=== PATIENT | male | born 2000 | race Hispanic/Latino ===

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

== ENCOUNTER 2021-02-20 14:57 | Emergency (ER) | payer SELFPAY ==
--- OUTSIDE RECORDS SUMMARY | 2021-02-20 15:00 | XMS REPORT | Continuity of Care Document ---
:2000 Author Organization [facility] t Address [address] [place] [address] Care Team Providers Name Role Phone Phil [...] ID 2020-08-29 2020-08-29 Office FATUMA Villarreal [id number] 14:32:29 16:45:19 Visit [facility] [id number] CARE [id number] CENTER AT [phone] CORE[facility] [address] [place] [id number] Results This patient has no known results.
[2021-02-20] MEDS ORDERED: FAMOTIDINE 20 MG/2 ML VIAL IV ONE (15:51)
[2021-02-20] MEDS ORDERED: NA CHLORIDE 0.9% 1,000 ML ONE (15:51)
[2021-02-20] MEDS ORDERED: ONDANSETRON 4 MG/2 ML VIAL ONE (15:51)
[2021-02-20 15:53] LABS: Urine Blood Negative (Negative); Urine Glucose Negative (Negative); Urine Protein Negative (Negative); Urine Specific Gravity 1.025 (1.005-1.030)
[2021-02-20 16:03] LABS: Absolute Lymphocytes (CBC) 2.2 K/uL (0.7-4.9); Basophils % 0.3 % (0-1.3); Hematocrit 43.7 % (39.6-49.0); MPV 10.1 fL (7.6-11.3); RBC Red Blood Cell Count 5.33 M/uL (4.33-5.43)
[2021-02-20 16:25] LABS: ALT/SGPT 46 U/L (12-78); AST/SGOT 16 U/L (15-37); Albumin 3.8 g/dL (3.4-5.0); Alkaline Phosphatase 67 U/L (45-117); BUN Blood Urea Nitrogen 13 mg/dL (7-18); Bicarbonate 24 mmol/L (21-32); Bilirubin Direct 0.1 mg/dL (0-0.2); Bilirubin Total 0.5 mg/dL (0.2-1.0); Glucose Level 78 mg/dL (74-106); Lipase 76 U/L (73-393); Potassium 3.9 mmol/L (3.5-5.1); Protein, Total 8.3 g/dL (6.4-8.2); Sodium Level 141 mmol/L (136-145)
--- NOTE | 2021-02-20 16:48 | ER ---
Nurse's Notes [facility] Name: Rocío Little Age: 21 yrs Sex: Male : 2000 Arrival Date: 02/20/2021 Time: 15:01 Bed 19 Private MD: Diagnosis: Vomiting;Dizziness and giddiness;Palpitations Presentation: 02/20 15:05 Chief complaint: Patient states: "i have been vomiting and feeling bad for about a week jd3 now. I am getting dizzy now with my heart feeling like it is skipping beats and feels funny. I think this all started when i was exposed to Benzine at work so I am not sure if it is related or not to that.". Coronavirus screen: cough unrelated to allergies, nausea, Client presents with at least one sign or symptom that may indicate coronavirus-19. Standard/surgical mask placed on the client. Provider contacted for isolation considerations. Ebola Screen: Patient negative for fever greater than or equal to 101.5 degrees Fahrenheit, and additional compatible Ebola Virus Disease symptoms. Initial Sepsis Screen: Does the patient meet any 2 criteria? No. Patient's initial sepsis screen is negative. Does the patient have a suspected source of infection? No. Patient's initial sepsis screen is negative. Risk Assessment: Do you want to hurt yourself or someone else? Patient reports no desire to harm self or others. Onset of symptoms was February 13, 2021. 15:05 Method Of Arrival: Ambulatory jd3 15:05 Acuity: LIZBETH 3 jd3 Historical: - Allergies: 15:07 NKDA; jd3 - Home Meds: 15:07 None [Active]; jd3 - PMHx: 15:07 Asthma; jd3 - PSHx: 15:07 Hernia repair; jd3 - Immunization history:: Adult Immunizations up to date. - Social history:: Smoking status: Patient denies any tobacco usage or history of. Screenin:24 Abuse screen: Denies threats or abuse. Nutritional screening: No deficits noted. vg1 Tuberculosis screening: No symptoms or risk factors identified. Fall Risk No fall in past 12 months (0 pts). No secondary diagnosis (0 pts). IV access (20 points). Ambulatory Aid- None/Bed Rest/Nurse Assist (0 pts). Gait- Normal/Bed Rest/Wheelchair (0 pts) Mental Status- Oriented to own ability (0 pts). Total Joyce Fall Scale indicates No Risk (0-24 pts). Assessment: 15:21 General: Appears in no apparent distress. uncomfortable, Behavior is calm, cooperative. vg1 Pain: Complains of pain in epigastric area and left upper quadrant Pain currently is 7 out of 10 on a pain scale. Pain began about a week ago Also complains of nausea. Neuro: Level of Consciousness is awake, alert, obeys commands, Oriented to person, place, time, situation. Cardiovascular: Patient's skin is warm and dry. Respiratory: Airway is patent Respiratory effort is even, unlabored. GI: Abdomen is round non-distended, Last BM was February 16, 2021. Bowel sounds present X 4 quads. Abdomen is tender to palpation in epigastric area and left upper quadrant Reports nausea, vomiting, for about a week. : No signs and/or symptoms were reported regarding the genitourinary system. EENT: No signs and/or symptoms were reported regarding the EENT system. Derm: Skin is intact, is healthy with good turgor. Musculoskeletal: Circulation, motion, and sensation intact. 16:34 Reassessment: Patient appears in no apparent distress at this time. Patient and/or vg1 family updated on plan of care and expected duration. Pain level reassessed. Patient is alert, oriented x 3, equal unlabored respirations, skin warm/dry/pink. Patient states feeling better. Vital Signs: 15:08 BP 157 / 87; Pulse 92; Resp 17 S; Temp 97.7(TE); Pulse Ox 99% on R/A; Weight 100.24 kg jd3 (R); Height 5 ft. 10 in. (177.80 cm) (R); Pain 7/10; 15:23 BP 134 / 81; Pulse 95; Resp 18; Pulse Ox 100% on R/A; vg1 16:35 BP 117 / 66; Pulse 68; Resp 14; Pulse Ox 100% on R/A; vg1 15:08 Body Mass Index 31.71 (100.24 kg, 177.80 cm) j ED Course: 15:01 Patient arrived in ED. am2 15:07 Triage completed. jd3 15:08 Arm band placed on. j 15:10 Sidney Henry MD is Attending Physician. [facility] 15:15 Dayan Murphy, RN is Primary Nurse. vg1 15:24 Patient has correct armband on for positive identification. Bed in low position. Call vg1 light in reach. Side rails up X 1. 15:36 EKG done, by ED staff, reviewed by Dayan Murphy RN. vg1 15:42 Initial lab(s) drawn, by fl, sent to lab. Inserted saline lock: 20 gauge in right vg1 antecubital area, using aseptic technique. Blood collected. 16:54 No provider procedures requiring assistance completed. IV discontinued, intact, vg1 bleeding controlled, No redness/swelling at site. Pressure dressing applied. Administered Medications: 15:47 Drug: NS 0.9% 1000 ml Route: IV; Rate: 1 bolus; Site: right antecubital; vg1 16:34 Follow up: IV Status: Completed infusion; IV Intake: 1000ml vg1 15:48 Drug: Zofran (Ondansetron) 4 mg Route: IVP; Site: right antecubital; vg1 16:35 Follow up: Response: No adverse reaction; Nausea is decreased vg1 15:48 Drug: Pepcid (famotidine) 20 mg Route: IVP; Site: right antecubital; vg1 16:35 Follow up: Response: No adverse reaction; Pain is decreased; Nausea is decreased vg1 Intake: 16:34 IV: 1000ml; Total: 1000ml. vg1 Outcome: 16:47 Discharge ordered by . [facility] 16:54 Discharged to home ambulatory. vg1 16:54 Condition: stable 16:54 Discharge instructions given to patient, Instructed on discharge instructions, follow up and referral plans. medication usage, Demonstrated understanding of instructions, follow-up care, medications, Prescriptions given X 1. 16:56 Patient left the ED. vg1 Signatures: Sidney Henry MD MD cha Moreno, Amanda am2 Avni Arguello RN RN jDayan Richmond, RN RN vg1 Corrections: (The following items were deleted from the chart) 15:25 15:21 GI: Abdomen is round non-distended, Last BM was February 16, 2021. Bowel sounds vg1 present X 4 quads. Abdomen is tender to palpation in epigastric area and left upper quadrant vg1
--- NOTE | 2021-02-20 16:48 | EDPHYS ---
Physician Documentation [facility] Name: Rocío Little Age: 21 yrs Sex: Male : 2000 Arrival Date: 02/20/2021 Time: 15:01 Bed 19 Private MD: ED Physician Sidney Henry HPI: 02/20 15:35 This 21 yrs old Male presents to ER via Ambulatory with complaints of long Vomiting, Dizziness, irregular heartbeat. 15:35 The patient presents to the emergency department with nausea, vomiting, that is long continuous. Onset: The symptoms/episode began/occurred yesterday. Possible causes: unknown. The symptoms are aggravated by nothing. The symptoms are alleviated by nothing. Associated signs and symptoms: Pertinent positives: abdominal pain, nausea, vomiting. Severity of symptoms: At their worst the symptoms were mild in the emergency department the symptoms are unchanged. The patient has not experienced similar symptoms in the past. Historical: - Allergies: 15:07 NKDA; jd3 - Home Meds: 15:07 None [Active]; jd3 - PMHx: 15:07 Asthma; jd3 - PSHx: 15:07 Hernia repair; jd3 - Immunization history:: Adult Immunizations up to date. - Social history:: Smoking status: Patient denies any tobacco usage or history of. ROS: 15:36 Constitutional: Negative for fever, chills, and weight loss, Eyes: Negative for injury, long pain, redness, and discharge, ENT: Negative for injury, pain, and discharge, Neck: Negative for injury, pain, and swelling, Cardiovascular: Negative for chest pain, palpitations, and edema, Respiratory: Negative for shortness of breath, cough, wheezing, and pleuritic chest pain, Back: Negative for injury and pain, : Negative for injury, bleeding, discharge, and swelling, MS/Extremity: Negative for injury and deformity, Skin: Negative for injury, rash, and discoloration, Neuro: Negative for headache, weakness, numbness, tingling, and seizure, Psych: Negative for depression, anxiety, suicide ideation, homicidal ideation, and hallucinations, Allergy/Immunology: Negative for hives, rash, and allergies, Endocrine: Negative for neck swelling, polydipsia, polyuria, polyphagia, and marked weight changes, Hematologic/Lymphatic: Negative for swollen nodes, abnormal bleeding, and unusual bruising. 15:36 Abdomen/GI: Positive for abdominal pain, nausea and vomiting. Exam: 15:36 Constitutional: This is a well developed, well nourished patient who is awake, alert, long and in no acute distress. Head/Face: Normocephalic, atraumatic. Eyes: Pupils equal round and reactive to light, extra-ocular motions intact. Lids and lashes normal. Conjunctiva and sclera are non-icteric and not injected. Cornea within normal limits. Periorbital areas with no swelling, redness, or edema. ENT: Nares patent. No nasal discharge, no septal abnormalities noted. Tympanic membranes are normal and external auditory canals are clear. Oropharynx with no redness, swelling, or masses, exudates, or evidence of obstruction, uvula midline. Mucous membranes moist. Neck: Trachea midline, no thyromegaly or masses palpated, and no cervical lymphadenopathy. Supple, full range of motion without nuchal rigidity, or vertebral point tenderness. No Meningismus. Chest/axilla: Normal chest wall appearance and motion. Nontender with no deformity. No lesions are appreciated. Cardiovascular: Regular rate and rhythm with a normal S1 and S2. No gallops, murmurs, or rubs. Normal PMI, no JVD. No pulse deficits. Respiratory: Lungs have equal breath sounds bilaterally, clear to auscultation and percussion. No rales, rhonchi or wheezes noted. No increased work of breathing, no retractions or nasal flaring. Abdomen/GI: Soft, non-tender, with normal bowel sounds. No distension or tympany. No guarding or rebound. No evidence of tenderness throughout. Back: No spinal tenderness. No costovertebral tenderness. Full range of motion. Male : Normal genitalia with no discharge or lesions. Skin: Warm, dry with normal turgor. Normal color with no rashes, no lesions, and no evidence of cellulitis. MS/ Extremity: Pulses equal, no cyanosis. Neurovascular intact. Full, normal range of motion. Neuro: Awake and alert, GCS 15, oriented to person, place, time, and situation. Cranial nerves II-XII grossly intact. Motor strength 5/5 in all extremities. Sensory grossly intact. Cerebellar exam normal. Normal gait. Psych: Awake, alert, with orientation to person, place and time. Behavior, mood, and affect are within normal limits. 15:50 ECG was reviewed by the Attending Physician. long Vital Signs: 15:08 BP 157 / 87; Pulse 92; Resp 17 S; Temp 97.7(TE); Pulse Ox 99% on R/A; Weight 100.24 kg jd3 (R); Height 5 ft. 10 in. (177.80 cm) (R); Pain 7/10; 15:23 BP 134 / 81; Pulse 95; Resp 18; Pulse Ox 100% on R/A; vg1 16:35 BP 117 / 66; Pulse 68; Resp 14; Pulse Ox 100% on R/A; vg1 15:08 Body Mass Index 31.71 (100.24 kg, 177.80 cm) jd3 MDM: 15:10 Patient medically screened. [facility] 16:46 Differential diagnosis: arrythmia, Nonspecific abd pain, gastritis, cholecystitis, long pancreatitis, diverticulitis, viral gastroenteritis, gastroenteritis. Data reviewed: vital signs, nurses notes, lab test result(s), EKG. Data interpreted: hand baseball sewer: rate is 68 beats/min, rhythm is regular, Pulse oximetry: on room air is 100 %. Test interpretation: by ED physician or midlevel provider: ECG. Counseling: I had a detailed discussion with the patient and/or guardian regarding: the historical points, exam findings, and any diagnostic results supporting the discharge/admit diagnosis, lab results, radiology results, the need for outpatient follow up, for definitive care, a family practitioner. 02/20 15:26 Order name: Basic Metabolic Panel; Complete Time: 16:45 [facility] 02/20 15:26 Order name: CBC with Diff; Complete Time: 16:45 [facility] 02/20 15:26 Order name: Hepatic Function; Complete Time: 16:45 [facility] 02/20 15:26 Order name: Lipase; Complete Time: 16:45 [facility] 02/20 15:53 Order name: Urine Dipstick-Ancillary; Complete Time: 16:45 [facility] 02/20 15:26 Order name: IV Saline Lock; Complete Time: 15:47 [facility] 02/20 15:26 Order name: Labs collected and sent; Complete Time: 15:47 [facility] 02/20 15:26 Order name: Urine Dipstick-Ancillary (obtain specimen); Complete Time: 15:53 [facility] 02/20 15:26 Order name: EKG; Complete Time: 15:26 [facility] 02/20 15:26 Order name: EKG - Nurse/Tech; Complete Time: 15:47 [facility] EC:50 Rate is 71 beats/min. Rhythm is regular. QRS [place] is Normal. NV interval is normal. QRS long interval is normal. QT interval is normal. No Q waves. T waves are Normal. No ST changes noted. Clinical impression: NSR w/ Non-specific ST/T Changes and No evidence of ischemia. Interpreted by me. Reviewed by me. Administered Medications: 15:47 Drug: NS 0.9% 1000 ml Route: IV; Rate: 1 bolus; Site: right antecubital; vg1 16:34 Follow up: IV Status: Completed infusion; IV Intake: 1000ml vg1 15:48 Drug: Zofran (Ondansetron) 4 mg Route: IVP; Site: right antecubital; vg1 16:35 Follow up: Response: No adverse reaction; Nausea is decreased vg1 15:48 Drug: Pepcid (famotidine) 20 mg Route: IVP; Site: right antecubital; vg1 16:35 Follow up: Response: No adverse reaction; Pain is decreased; Nausea is decreased vg1 Disposition: 02/20/21 16:47 Discharged to Home. Impression: Vomiting, Dizziness and giddiness, Palpitations. - Condition is Stable. - Discharge Instructions: Nausea and Vomiting, Adult, Palpitations, Nausea and Vomiting, Adult, Mxsf-rv-Bsnh, Palpitations, Cppg-wy-Bhxm, Dizziness, Qorp-ec-Ttur. - Prescriptions for Zofran 4 mg Oral Tablet - take 1 tablet by ORAL route every 12 hours As needed; 20 tablet. - Medication Reconciliation Form, Thank You Letter, Antibiotic Education, Prescription Opioid Use, Work release form form. - Follow up: Private Physician; When: 2 - 3 days; Reason: Recheck today's complaints, Continuance of care, Re-evaluation by your physician. - Problem is new. - Symptoms have improved. Signatures: Dispatcher [employer] Sidney De La Garza MD MD cha Davies, Jonathon, RN RN jd3 Dayan Murphy, RN RN vg1 Corrections: (The following items were deleted from the chart) 16:56 16:47 02/20/2021 16:47 Discharged to Home. Impression: Vomiting; Dizziness and vg1 giddiness; Palpitations. Condition is Stable. Discharge Instructions: Nausea and Vomiting, Adult, Palpitations, Nausea and Vomiting, Adult, Qhhw-cf-Gnfi, Palpitations, Kqxk-vd-Biis, Dizziness, Lqoc-td-Lhfo. Prescriptions for Zofran 4 mg Oral Tablet - take 1 tablet by ORAL route every 12 hours As needed; 20 tablet. and Forms are Medication Reconciliation Form, Thank You Letter, Antibiotic Education, Prescription Opioid Use. Follow up: Private Physician; When: 2 - 3 days; Reason: Recheck today's complaints, Continuance of care, Re-evaluation by your physician. Problem is new. Symptoms have improved. long
[2021-02-20 17:27] VITALS: TEMP 97.7
[2021-02-20 17:29] VITALS: O2SAT 100
[2021-02-20 17:30] VITALS: BP 117/66
--- NOTE | 2021-02-21 07:39 | EKG ---
Test Date: 2021-02-20 Test Time: 15:36:26 [employer]: CLAUDINE MEASUREMENT RESULTS: Intervals: Rate: 71 LA: 174 QRSD: 96 QT: 354 QTc: 384 [place]: P: 58 LA: 174 QRS: 88 T: 65 INTERPRETIVE STATEMENTS: Normal sinus rhythm with sinus arrhythmia Normal ECG No previous ECG available for comparison Electronically Signed On 02-21-21 07:35:55 CDT by Jp Jacques
== END 2021-02-20 16:56 | disposition home or self-care (01) ==
LOC: ER 14:57
DX: R11.2 Nausea with vomiting, unspecified (principal); R42 Dizziness and giddiness; R00.2 Palpitations
CPT/HCPCS: 36415; 80048; 80076; 81003; 83690; 85025; 93005; J2405; J7030

== ENCOUNTER 2021-05-02 23:46 | Emergency (ER) | payer SELFPAY ==
--- OUTSIDE RECORDS SUMMARY | 2021-05-02 23:48 | XMS REPORT | Continuity of Care Document ---
:2000 Author Organization [facility] t Address [address] [place] [address] Care Team Providers Name Role Phone Phil [...] ID 2020-08-29 2020-08-29 Office FATUMA Villarreal [id number] 14:32:29 16:45:19 Visit [facility] [id number] CARE [id number] CENTER AT [phone] [facility] [address] [place] [address] Results This patient has no known results.
--- NOTE | 2021-05-03 00:49 | ER ---
Nurse's Notes [facility] Name: Rocío Little Age: 21 yrs Sex: Male : 2000 Arrival Date: 05/02/2021 Time: 23:51 Bed Waiting Private MD: Diagnosis: ED Course: 05/02 23:51 Patient arrived in ED. bp1 05/03 00:49 Patient's name was called from ER lobby. No response. Unable to locate patient. Will bb disposition as left without being seen by a provider. Administered Medications: No medications were administered Outcome: 00:49 Patient left the ED. bb Signatures: Sylvie Rain RN RN bb Hannah Casiano bp1
== END 2021-05-03 00:49 | disposition left against medical advice (07) ==
LOC: ER 23:46
DX: Z02.9 Encounter for administrative examinations, unspecified (principal)

== ENCOUNTER 2021-06-11 02:17 | Emergency (ER) | payer SELFPAY ==
[2021-06-11] MEDS ORDERED: KETOROLAC 30 MG/ML INJ ONE (03:10)
--- NOTE | 2021-06-11 03:41 | ER ---
Nurse's Notes [facility] Name: Rocío Little Age: 21 yrs Sex: Male : 2000 Arrival Date: 06/11/2021 Time: 02:22 Bed 18 Private MD: Diagnosis: Pain in right hip-Strain Presentation: 06/11 02:35 Chief complaint: Patient states: left hip pain x 4 weeks, reports worsening tonight lp1 while at work; Denies any trauma to site. Coronavirus screen: At this time, the client does not indicate any symptoms associated with coronavirus-19. Ebola Screen: No symptoms or risks identified at this time. Initial Sepsis Screen: Does the patient meet any 2 criteria? No. Patient's initial sepsis screen is negative. Does the patient have a suspected source of infection? No. Patient's initial sepsis screen is negative. Risk Assessment: Do you want to hurt yourself or someone else? Patient reports no desire to harm self or others. Onset of symptoms was June 11, 2021. 02:35 Method Of Arrival: Wheelchair lp1 02:35 Acuity: LIZBETH 4 lp1 03:56 Note PT UP FOR DISCHARGE AT THIS TIME. PT AWAKE ALERT AOX4 SPEAKING IN FULL SENTENCES. cw2 DISCHARGE INSTRUCTIONS AND PRESCRIPTIONS X2 DISCUSSED WITH PT. ALL QUESTIONS ANSWERED AND NO CONCERNS VERBALIZED AT THIS TIME. PT AMBULATORY ALONE WITH A STEADY GAIT. PT ADVISED TO RETURN TO ED AT ANYTIME. PT ACKNOWLEDGES. PT STABLE ON DISCHARGE. Triage Assessment: 03:13 General: Appears distressed, uncomfortable, Behavior is calm, cooperative. cw2 03:13 Neuro: No deficits noted. Cardiovascular: No deficits noted. Respiratory: No deficits cw2 noted. GI: No deficits noted. Historical: - Allergies: 02:37 NKDA; lp1 - Home Meds: 02:37 None [Active]; lp1 - PMHx: 02:37 Asthma; lp1 - PSHx: 02:37 None; lp1 - Immunization history:: Adult Immunizations up to date. - Social history:: Smoking status: Reported history of juuling and/or vaping. Screenin:38 Abuse screen: Denies threats or abuse. Denies injuries from another. Nutritional lp1 screening: No deficits noted. Tuberculosis screening: No symptoms or risk factors identified. Fall Risk None identified. Assessment: 03:14 Reassessment: Patient appears in no apparent distress at this time. No changes from cw2 previously documented assessment. General: Appears uncomfortable, Behavior is calm, cooperative. Pain:. Vital Signs: 02:35 BP 145 / 88; Pulse 98; Resp 18; Temp 98.6(TE); Pulse Ox 98% on R/A; Weight 102.06 kg lp1 (R); Height 5 ft. 10 in. (177.80 cm); Pain 9/10; 03:13 BP 132 / 84; Pulse 94; Resp 15; Pulse Ox 99% on R/A; cw2 03:58 BP 129 / 79; Pulse 81; Resp 15; Temp 98.5; Pulse Ox 99% on R/A; Pain 4/10; cw2 02:35 Body Mass Index 32.28 (102.06 kg, 177.80 cm) lp1 ED Course: 02:22 Patient arrived in ED. ja2 02:28 Juan David León MD is Attending Physician. 7 02:37 Triage completed. lp1 02:37 Arm band placed on. lp1 02:38 Patient has correct armband on for positive identification. lp1 02:43 Diego Dennison, RN is Primary Nurse. cw2 03:03 Hip Left 2 View XRAY In Process Unspecified. EDMS 03:15 Door closed. Noise minimized. Moved to private room. cw2 03:15 No provider procedures requiring assistance completed. cw2 03:15 X-ray(s) taken. cw2 03:39 Simeon Brannon MD is Referral Physician. 7 Administered Medications: 02:49 Drug: Ketorolac 60 mg Route: IM; Site: right deltoid; cw2 03:58 Follow up: BP 129 / 79; Pulse 81 bpm; Resp 15 bpm; Temp 98.5; Pulse Ox 99% RA; Pain cw2 4/10 Adult; Response: No adverse reaction Outcome: 03:41 Discharge ordered by . 7 03:59 Patient left the ED. cw2 Signatures: Dispatcher [employer] EDMS Juanita Rey, RN RN lp1 Juan David León MD MD 7 Mylene Alcazar 2 Diego Dennison, CRISSY RN cw2
--- NOTE | 2021-06-11 03:41 | EDPHYS ---
Physician Documentation [facility] Name: Rocío Little Age: 21 yrs Sex: Male : 2000 Arrival Date: 06/11/2021 Time: 02:22 Bed 18 Private MD: ED Physician Juan David León HPI: 06/11 02:44 This 21 yrs old Male presents to ER via Wheelchair with complaints of Hip mh7 Pain, Other. 02:44 The patient or guardian reports pain. that occurred at an unknown site, sustained from mh7 unknown reason, There is no obvious deformity, The patient is able to self ambulate. The patient is able to bear their full body weight. There is no radiation of the patient's discomfort. The complaints affect the Left hip. Onset: The symptoms/episode began/occurred 4 week(s) ago. Modifying factors: The symptoms are alleviated by nothing, the symptoms are aggravated by flexion. Associated signs and symptoms: Loss of consciousness: the patient experienced no loss of consciousness, Pertinent negatives: abdominal pain, altered mental status, anorexia, chest pain, diarrhea, dizziness, dysuria, fever, headache, incontinence, nausea, shortness of breath, vomiting, weakness. Severity of symptoms: At their worst the symptoms were moderate, 7 day(s) ago, in the emergency department the symptoms are unchanged. Historical: - Allergies: 02:37 NKDA; lp1 - Home Meds: 02:37 None [Active]; lp1 - PMHx: 02:37 Asthma; lp1 - PSHx: 02:37 None; lp1 - Immunization history:: Adult Immunizations up to date. - Social history:: Smoking status: Reported history of juuling and/or vaping. ROS: 02:44 Constitutional: Negative for fever, chills, and weight loss, Eyes: Negative for injury, mh7 pain, redness, and discharge, ENT: Negative for injury, pain, and discharge, Neck: Negative for injury, pain, and swelling, Cardiovascular: Negative for chest pain, palpitations, and edema, Respiratory: Negative for shortness of breath, cough, wheezing, and pleuritic chest pain, Abdomen/GI: Negative for abdominal pain, nausea, vomiting, diarrhea, and constipation, Back: Negative for injury and pain, : Negative for injury, bleeding, discharge, and swelling, Skin: Negative for injury, rash, and discoloration, Neuro: Negative for headache, weakness, numbness, tingling, and seizure, Psych: Negative for depression, anxiety, suicide ideation, homicidal ideation, and hallucinations, Allergy/Immunology: Negative for hives, rash, and allergies, Endocrine: Negative for neck swelling, polydipsia, polyuria, polyphagia, and marked weight changes, Hematologic/Lymphatic: Negative for swollen nodes, abnormal bleeding, and unusual bruising. Exam: 02:44 Constitutional: This is a well developed, well nourished patient who is awake, alert, mh7 and in no acute distress. Head/Face: Normocephalic, atraumatic. Eyes: Pupils equal round and reactive to light, extra-ocular motions intact. Lids and lashes normal. Conjunctiva and sclera are non-icteric and not injected. Cornea within normal limits. Periorbital areas with no swelling, redness, or edema. Neck: Trachea midline, no thyromegaly or masses palpated, and no cervical lymphadenopathy. Supple, full range of motion without nuchal rigidity, or vertebral point tenderness. No Meningismus. Chest/axilla: Normal chest wall appearance and motion. Nontender with no deformity. No lesions are appreciated. Cardiovascular: Regular rate and rhythm with a normal S1 and S2. No gallops, murmurs, or rubs. Normal PMI, no JVD. No pulse deficits. Respiratory: Lungs have equal breath sounds bilaterally, clear to auscultation and percussion. No rales, rhonchi or wheezes noted. No increased work of breathing, no retractions or nasal flaring. Abdomen/GI: Soft, non-tender, with normal bowel sounds. No distension or tympany. No guarding or rebound. No evidence of tenderness throughout. Back: No spinal tenderness. No costovertebral tenderness. Full range of motion. Skin: Warm, dry with normal turgor. Normal color with no rashes, no lesions, and no evidence of cellulitis. Neuro: Awake and alert, GCS 15, oriented to person, place, time, and situation. Cranial nerves II-XII grossly intact. Motor strength 5/5 in all extremities. Sensory grossly intact. Cerebellar exam normal. Normal gait. Psych: Awake, alert, with orientation to person, place and time. Behavior, mood, and affect are within normal limits. 02:44 Musculoskeletal/extremity: Extremities: noted in the Left hip: tenderness, ROM: limited mh7 active range of motion due to pain, in the Left hip, limited passive range of motion due to pain, in the Left hip, Circulation is intact in all extremities. Sensation intact. Compartment Syndrome exam of affected extremity: is normal. no numbness, no tingling, no sensation deficit, no palor, no weak pulses, Joints: the left hip displays painful range of motion, tenderness, Weight bearing: able to fully bear weight, without difficulty, Tendon exam: specific tendon testing normal through active and passive range of motion Calves: are non-tender, have equal circumference. Vital Signs: 02:35 BP 145 / 88; Pulse 98; Resp 18; Temp 98.6(TE); Pulse Ox 98% on R/A; Weight 102.06 kg lp1 (R); Height 5 ft. 10 in. (177.80 cm); Pain 9/10; 03:13 BP 132 / 84; Pulse 94; Resp 15; Pulse Ox 99% on R/A; cw2 03:58 BP 129 / 79; Pulse 81; Resp 15; Temp 98.5; Pulse Ox 99% on R/A; Pain 4/10; cw2 02:35 Body Mass Index 32.28 (102.06 kg, 177.80 cm) lp1 MDM: 03:38 Differential diagnosis: hip fracture, femoral neck fracture, femoral shaft fracture, mh7 bursitis, arthritis, strain. Data reviewed: vital signs, nurses notes, radiologic studies, plain films. Data interpreted: Pulse oximetry: on room air is 99 %. Interpretation: normal. Counseling: I had a detailed discussion with the patient and/or guardian regarding: the historical points, exam findings, and any diagnostic results supporting the discharge/admit diagnosis, radiology results, the need for outpatient follow up, a orthopedic surgeon, to return to the emergency department if symptoms worsen or persist or if there are any questions or concerns that arise at home. Response to treatment: the patient's symptoms have markedly improved after treatment. 03:41 Patient medically screened. [facility] 06/11 02:42 Order name: Hip Left 2 View XRAY [facility] Administered Medications: 02:49 Drug: Ketorolac 60 mg Route: IM; Site: right deltoid; cw2 03:58 Follow up: BP 129 / 79; Pulse 81 bpm; Resp 15 bpm; Temp 98.5; Pulse Ox 99% RA; Pain cw2 12/16 Adult; Response: No adverse reaction Disposition Summary: 06/11/21 03:41 Discharge Ordered Location: Home [facility] Problem: an ongoing problem [facility] Symptoms: have improved [facility] Condition: Stable [facility] Diagnosis - Pain in right hip - Strain [facility] Followup: [facility] - With: Private Physician - When: 1 - 2 days - Reason: Worsening of condition, Recheck today's complaints, Continuance of care, Re-evaluation by your physician Followup: [facility] - With: Simeon Brannon MD - When: 2 - 3 days - Reason: Worsening of condition, Recheck today's complaints Discharge Instructions: - Discharge Summary Sheet [facility] - Musculoskeletal Pain [facility] - Hip Pain [facility] Forms: - Medication Reconciliation Form [facility] - Thank You Letter [facility] - Antibiotic Education [facility] - Prescription Opioid Use [facility] Prescriptions: - Ibuprofen 800 mg Oral Tablet - take 1 tablet by ORAL route every 8 hours As needed take with food; 15 tablet; 7 Refills: 0, Product Selection Permitted - methocarbamol 500 mg Oral Tablet - take 1 tablet by ORAL route 4 times per day; 20 tablet; Refills: 0, Product [facility] Selection Permitted Signatures: Dispatcher [employer] Juanita Renner, RN RN lp1 Juan David León MD MD 7 Diego Dennison RN RN cw2
[2021-06-11 04:08] VITALS: O2SAT 99
[2021-06-11 04:09] VITALS: BP 129/79; TEMP 98.5
--- NOTE | 2021-06-11 07:41 | RAD REPORT ---
EXAM DESCRIPTION: RAD - Hip Left 2 View - 06/11/2021 3:03 am CLINICAL HISTORY: Left hip pain FINDINGS: No fracture or dislocation is seen. No bone or joint abnormality noted
== END 2021-06-11 03:59 | disposition home or self-care (01) ==
LOC: ER 02:17
DX: S76.012A Strain of muscle, fascia and tendon of left hip, initial encounter (principal)
CPT/HCPCS: 96372; 99283

== ENCOUNTER 2021-11-14 04:16 | Emergency (ER) | payer SELFPAY ==
--- OUTSIDE RECORDS SUMMARY | 2021-11-14 04:21 | XMS REPORT | Continuity of Care Document ---
:2001 Author Organization [facility] t Address [address] [place] [address] Care Team Providers Name Role Phone Cy TERAN Attending Clinician CY Attending Clinician Unavailable Doctor Unassigned, Name Attending Clinician Unavailable Bernardo Baxter MD Attending Clinician Payers Payer Name Policy Type Policy Number Effective Date Expiration Date S ourkerry Advance Directives Directive Decision Effective Termination Comments Source Date Date Healthcare Agents on N/A [facility] ersity FileNameRelationshipHealthcare [facility] Agent Medical RelationshipCommunicationValleyford Branch GarciaMotherHealth Care [phone] (Mobile) [email or web address] JeffreyGrandparentFirst [facility] [phone] (Mobile) Problems Condition Condition Condition Status Onset Resolution Last Treating Co mments Source Name Details Category Date Date Treatment Clinician Date BMI BMI Disease Active Univers 31.0-31.9, 31.0-31.9, 04-09 it y of adult adult 00:00: [address] 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, left s, left 04-09 ity of 00:00: [address] Allergies, Adverse Reactions, Alerts Allergy Allergy Status Severity Reaction(s) Onset Inactive Treating Comm ents Source Name Type Date Date Clinician NO KNOWN Drug Active Univers ALLERGIE Class ity of [facility] Social History Social Habit Start Date Stop Date Quantity Comments Source Exposure to Not sure [facility]-CoV-2 [place] [facility] (event) Branch History of Cigarette Smoker Universi ty of tobacco use [facility] Sex Assigned At Universit y of [facility] Tobacco use and 2019-04-09 2019-04-09 Former user Universi ty of exposure 00:00:00 00:00:00 [facility] Alcohol intake 2019-04-09 2019-04-09 Current University of 00:00:00 00:00:00 non-drinker of [facility] alcohol (finding) Branch Tobacco Comment 2019-04-09 2019-04-09 E cigarette - Univer sity of 00:00:00 00:00:00 once per nine [place] [facility] days, non Branch nicotine, 04/07/2019 - no longer vapes. Smoking Status Start Date Stop Date Source Light tobacco smoker 2019-04-09 00:00:00 [facility] Medications Ordered Filled Start Stop Current Ordering Indication Dosage Frequency Signature Comments Components Source Medication Medication Date Date Medication? Clinician (SIG) Name Name ondansetron 2017-09 Yes 4mg Take 1 Univ ers (ZOFRAN 2-19 tablet by ity of ODT) 4 mg 00:00: mouth [place] disintegrat 00 every 8 Medic al ing tablet (eight) Branch hours as needed for Nausea and Vomiting (N/V). ondansetron 2017-09- No 4mg Take 1 Uni vers (ZOFRAN 2-19 -31 tablet by ity of ODT) 4 mg 00:00: 00:00 mouth [place] disintegr[facility] 00 :00 every 8 Medic al ing tablet (eight) Branch hours as needed for Nausea and Vomiting (N/V). ondansetron 2017-09- No 4mg Take 1 Uni vers (ZOFRAN 2-19 -31 tablet by ity of ODT) 4 mg 00:00: 00:00 mouth [place] disintegrat 00 :00 every 8 Medic al ing tablet (eight) Branch hours as needed for Nausea and Vomiting (N/V). No known No [facility] No [facility] medications [facility] No known No Univers medications [facility] No known No Univers medications [facility] Immunizations Ordered Immunization Filled Immunization Date Status Commen ts Source Name Name Meningococcal B, OMV 2019-04-07 Completed Univ ersity of 00:00:00 [facility] Meningococcal B, OMV 2019-04-07 Completed Univ ersity of 00:00:00 [facility] Meningococcal B, OMV 2019-04-07 Completed Univ ersity of 00:00:00 [facility] Meningococcal B, OMV 2019-04-07 Completed Univ ersity of 00:00:00 [facility] Meningococcal B, OMV 2019-04-07 Completed Univ ersity of 00:00:00 [facility] Meningococcal B, OMV 2019-04-07 Completed Univ ersity of 00:00:00 [facility] Meningococcal 2018-04-08 Completed University of Polysaccharide 00:00:00 [place] [facility] (groups A, C, Y and Branc h W-135) conjugate vaccine (MCV4P) Meningococcal 2018-04-08 Completed University of Polysaccharide 00:00:00 [place] [facility] (groups A, C, Y and Branc h W-135) conjugate vaccine (MCV4P) Meningococcal 2018-04-08 Completed University of Polysaccharide 00:00:00 [place] [facility] (groups A, C, Y and Branc h W-135) conjugate vaccine (MCV4P) Meningococcal 2018-04-08 Completed University of Polysaccharide 00:00:00 [place] [facility] (groups A, C, Y and Branc h W-135) conjugate vaccine (MCV4P) Meningococcal 2018-04-08 Completed University of Polysaccharide 00:00:00 [place] [facility] (groups A, C, Y and Branc h W-135) conjugate vaccine (MCV4P) Meningococcal 2018-04-08 Completed University of Polysaccharide 00:00:00 [place] [facility] (groups A, C, Y and Branc h W-135) conjugate vaccine (MCV4P) Meningococcal 2018-04-08 Completed University of Polysaccharide 00:00:00 [place] [facility] (groups A, C, Y and Branc h W-135) conjugate vaccine (MCV4P) Influenza Virus 2015-06-12 Completed Universit y of Vaccine 00:00:00 [facility] Influenza Virus 2015-06-12 Completed Universit y of Vaccine 00:00:00 [facility] Influenza Virus 2015-06-12 Completed Universit y of Vaccine 00:00:00 [facility] Influenza Virus 2015-06-12 Completed Universit y of Vaccine 00:00:00 [facility] Influenza Virus 2015-06-12 Completed Universit y of Vaccine 00:00:00 [facility] Influenza Virus 2015-06-12 Completed Universit y of Vaccine 00:00:00 [facility] Influenza Virus 2015-06-12 Completed Universit y of Vaccine 00:00:00 [facility] Influenza Virus 2013-07-28 Completed Universit y of Vaccine 00:00:00 [facility] Influenza Virus 2013-07-28 Completed Universit y of Vaccine 00:00:00 [facility] Influenza Virus 2013-07-28 Completed Universit y of Vaccine 00:00:00 [facility] Influenza Virus 2013-07-28 Completed Universit y of Vaccine 00:00:00 [facility] Influenza Virus 2013-07-28 Completed Universit y of Vaccine 00:00:00 [facility] Influenza Virus 2013-07-28 Completed Universit y of Vaccine 00:00:00 [facility] Influenza Virus 2013-07-28 Completed Universit y of Vaccine 00:00:00 [facility] HPV 2013-05-17 Completed University of 00:00:00 [facility] HPV 2013-05-17 Completed University of 00:00:00 [facility] HPV 2013-05-17 Completed University of 00:00:00 [facility] HPV 2013-05-17 Completed University of 00:00:00 [facility] HPV 2013-05-17 Completed University of 00:00:00 [facility] HPV 2013-05-17 Completed University of 00:00:00 [facility] HPV 2013-05-17 Completed University of 00:00:00 [facility] TDAP (ADACEL) VACCINE 2012-08-05 Completed Uni versity of 00:00:00 [facility] TDAP (ADACEL) VACCINE 2012-08-05 Completed Uni versity of 00:00:00 [facility] HPV 2012-08-05 Completed University of 00:00:00 [facility] Meningococcal Vaccine 2012-08-05 Completed Uni versity of 00:00:00 [facility] TDAP (ADACEL) VACCINE 2012-08-05 Completed Uni versity of 00:00:00 [facility] HPV 2012-08-05 Completed University of 00:00:00 [facility] Meningococcal Vaccine 2012-08-05 Completed Uni versity of 00:00:00 [facility] TDAP (ADACEL) VACCINE 2012-08-05 Completed Uni versity of 00:00:00 [facility] HPV 2012-08-05 Completed University of 00:00:00 [facility] Meningococcal Vaccine 2012-08-05 Completed Uni versity of 00:00:00 [facility] Branch TDAP (ADACEL) VACCINE 2012-08-05 Completed Uni versity of 00:00:00 [facility] HPV 2012-08-05 Completed University of 00:00:00 [facility] HPV 2012-08-05 Completed University of 00:00:00 [facility] Meningococcal Vaccine 2012-08-05 Completed Uni versity of 00:00:00 [facility] Branch TDAP (ADACEL) VACCINE 2012-08-05 Completed Uni versity of 00:00:00 [facility] HPV 2012-08-05 Completed University of 00:00:00 [facility] Meningococcal Vaccine 2012-08-05 Completed Uni versity of 00:00:00 [facility] Meningococcal Vaccine 2012-08-05 Completed Uni versity of 00:00:00 [facility] TDAP (ADACEL) VACCINE 2012-08-05 Completed Uni versity of 00:00:00 [facility] HPV 2012-08-05 Completed University of 00:00:00 [facility] Meningococcal Vaccine 2012-08-05 Completed Uni versity of 00:00:00 [facility] Influenza Virus 2012-06-23 Completed Universit y of Vaccine 00:00:00 [facility] Influenza Virus 2012-06-23 Completed Universit y of Vaccine 00:00:00 [facility] Influenza Virus 2012-06-23 Completed Universit y of Vaccine 00:00:00 [facility] Influenza Virus 2012-06-23 Completed Universit y of Vaccine 00:00:00 [facility] Influenza Virus 2012-06-23 Completed Universit y of Vaccine 00:00:00 [facility] Influenza Virus 2012-06-23 Completed Universit y of Vaccine 00:00:00 [facility] Influenza Virus 2012-06-23 Completed Universit y of Vaccine 00:00:00 [facility] HPV 2011-09-23 Completed University of 00:00:00 [facility] Branch HPV 2011-09-23 Completed University of 00:00:00 [facility] HPV 2011-09-23 Completed University of 00:00:00 [facility] HPV 2011-09-23 Completed University of 00:00:00 [facility] HPV 2011-09-23 Completed University of 00:00:00 [facility] HPV 2011-09-23 Completed University of 00:00:00 [facility] HPV 2011-09-23 Completed University of 00:00:00 [facility] Influenza Virus 2011-08-27 Completed Universit y of Vaccine 00:00:00 [facility] Influenza Virus 2011-08-27 Completed Universit y of Vaccine 00:00:00 [facility] Influenza Virus 2011-08-27 Completed Universit y of Vaccine 00:00:00 [facility] Influenza Virus 2011-08-27 Completed Universit y of Vaccine 00:00:00 [facility] Influenza Virus 2011-08-27 Completed Universit y of Vaccine 00:00:00 [facility] Influenza Virus 2011-08-27 Completed Universit y of Vaccine 00:00:00 [facility] Influenza Virus 2011-08-27 Completed Universit y of Vaccine 00:00:00 [facility] Influenza Virus 2010-05-25 Completed Universit y of Vaccine 00:00:00 [facility] Influenza Virus 2010-05-25 Completed Universit y of Vaccine 00:00:00 [facility] Influenza Virus 2010-05-25 Completed Universit y of Vaccine 00:00:00 [facility] Influenza Virus 2010-05-25 Completed Universit y of Vaccine 00:00:00 [facility] Influenza Virus 2010-05-25 Completed Universit y of Vaccine 00:00:00 [facility] Influenza Virus 2010-05-25 Completed Universit y of Vaccine 00:00:00 [facility] Influenza Virus 2010-05-25 Completed Universit y of Vaccine 00:00:00 [facility] H1n1 Vaccine 2009-08-10 Completed University o f 00:00:00 [facility] H1n1 Vaccine 2009-08-10 Completed University o f 00:00:00 [facility] H1n1 Vaccine 2009-08-10 Completed University o f 00:00:00 [facility] H1n1 Vaccine 2009-08-10 Completed University o f 00:00:00 [facility] H1n1 Vaccine 2009-08-10 Completed University o f 00:00:00 [facility] H1n1 Vaccine 2009-08-10 Completed University o f 00:00:00 [facility] H1n1 Vaccine 2009-08-10 Completed University o f 00:00:00 [facility] Influenza Virus 2008-06-27 Completed Universit y of Vaccine 00:00:00 [facility] Influenza Virus 2008-06-27 Completed Universit y of Vaccine 00:00:00 [facility] Influenza Virus 2008-06-27 Completed Universit y of Vaccine 00:00:00 [facility] Influenza Virus 2008-06-27 Completed Universit y of Vaccine 00:00:00 [facility] Influenza Virus 2008-06-27 Completed Universit y of Vaccine 00:00:00 [facility] Influenza Virus 2008-06-27 Completed Universit y of Vaccine 00:00:00 [facility] Influenza Virus 2008-06-27 Completed Universit y of Vaccine 00:00:00 [facility] Influenza Virus 2007-09-29 Completed Universit y of Vaccine 00:00:00 [facility] Influenza Virus 2007-09-29 Completed Universit y of Vaccine 00:00:00 [facility] Influenza Virus 2007-09-29 Completed Universit y of Vaccine 00:00:00 [facility] Influenza Virus 2007-09-29 Completed Universit y of Vaccine 00:00:00 [facility] Influenza Virus 2007-09-29 Completed Universit y of Vaccine 00:00:00 [facility] Influenza Virus 2007-09-29 Completed Universit y of Vaccine 00:00:00 [facility] Influenza Virus 2007-09-29 Completed Universit y of Vaccine 00:00:00 [facility] Varicella 2006-09-29 Completed University of (varivax)(chicken 00:00:00 [place] [facility] pox) Branch Varicella 2006-09-29 Completed University of (varivax)(chicken 00:00:00 [place] [facility] pox) Branch Varicella 2006-09-29 Completed University of (varivax)(chicken 00:00:00 [place] [facility] pox) Branch Varicella 2006-09-29 Completed University of (varivax)(chicken 00:00:00 [place] [facility] pox) Branch Varicella 2006-09-29 Completed University of (varivax)(chicken 00:00:00 [place] [facility] pox) Branch Varicella 2006-09-29 Completed University of (varivax)(chicken 00:00:00 [place] [facility] pox) Branch Varicella 2006-09-29 Completed University of (varivax)(chicken 00:00:00 [place] [facility] pox) Branch HEPATITIS A 2005-12-17 Completed University of 00:00:00 [facility] HEPATITIS A 2005-12-17 Completed University of 00:00:00 [facility] HEPATITIS A 2005-12-17 Completed University of 00:00:00 [facility] HEPATITIS A 2005-12-17 Completed University of 00:00:00 [facility] HEPATITIS A 2005-12-17 Completed University of 00:00:00 [facility] HEPATITIS A 2005-12-17 Completed University of 00:00:00 [facility] HEPATITIS A 2005-12-17 Completed University of 00:00:00 [facility] DTAP 2005-04-11 Completed University of 00:00:00 [facility] HEPATITIS A 2005-04-11 Completed University of 00:00:00 [facility] [place] [facility] MMR 2005-04-11 Completed University of 00:00:00 [facility] Polio (IPV/OPV) 2005-04-11 Completed Universit y of 00:00:00 [facility] DTAP 2005-04-11 Completed University of 00:00:00 [facility] DTAP 2005-04-11 Completed University of 00:00:00 [facility] HEPATITIS A 2005-04-11 Completed University of 00:00:00 [facility] MMR 2005-04-11 Completed University of 00:00:00 [facility] Polio (IPV/OPV) 2005-04-11 Completed Universit y of 00:00:00 [facility] HEPATITIS A 2005-04-11 Completed University of 00:00:00 [facility] DTAP 2005-04-11 Completed University of 00:00:00 [facility] HEPATITIS A 2005-04-11 Completed University of 00:00:00 [facility] [place] [facility] MMR 2005-04-11 Completed University of 00:00:00 [facility] Polio (IPV/OPV) 2005-04-11 Completed Universit y of 00:00:00 [facility] DTAP 2005-04-11 Completed University of 00:00:00 [facility] HEPATITIS A 2005-04-11 Completed University of 00:00:00 [facility] MMR 2005-04-11 Completed University of 00:00:00 [facility] Polio (IPV/OPV) 2005-04-11 Completed Universit y of 00:00:00 [facility] DTAP 2005-04-11 Completed University of 00:00:00 [facility] HEPATITIS A 2005-04-11 Completed University of 00:00:00 [facility] MMR 2005-04-11 Completed University of 00:00:00 [facility] Polio (IPV/OPV) 2005-04-11 Completed Universit y of 00:00:00 [place] [facility] MMR 2005-04-11 Completed University of 00:00:00 [facility] Polio (IPV/OPV) 2005-04-11 Completed Universit y of 00:00:00 [facility] DTAP 2005-04-11 Completed University of 00:00:00 [facility] HEPATITIS A 2005-04-11 Completed University of 00:00:00 [facility] MMR 2005-04-11 Completed University of 00:00:00 [facility] Polio (IPV/OPV) 2005-04-11 Completed Universit y of 00:00:00 [facility] Pneumococcal 7 2003-07-21 Completed University of Conjugate, PCV7 00:00:00 [place] [facility] (Prevnar7) Branch Pneumococcal 7 2003-07-21 Completed University of Conjugate, PCV7 00:00:00 [place] [facility] (Prevnar7) Branch Pneumococcal 7 2003-07-21 Completed University of Conjugate, PCV7 00:00:00 [place] [facility] (Prevnar7) Branch Pneumococcal 7 2003-07-21 Completed University of Conjugate, PCV7 00:00:00 [place] [facility] (Prevnar7) Branch Pneumococcal 7 2003-07-21 Completed University of Conjugate, PCV7 00:00:00 [place] [facility] (Prevnar7) Branch Pneumococcal 7 2003-07-21 Completed University of Conjugate, PCV7 00:00:00 [place] [facility] (Prevnar7) Branch Pneumococcal 7 2003-07-21 Completed University of Conjugate, PCV7 00:00:00 [place] [facility] (Prevnar7) Branch DTAP 2002-05-20 Completed University of 00:00:00 [facility] HIB 4 Dose Schedule 2002-05-20 Completed Unive rsity of 00:00:00 [facility] DTAP 2002-05-20 Completed University of 00:00:00 [facility] DTAP 2002-05-20 Completed University of 00:00:00 [facility] HIB 4 Dose Schedule 2002-05-20 Completed Unive rsity of 00:00:00 [facility] HIB 4 Dose Schedule 2002-05-20 Completed Unive rsity of 00:00:00 [facility] DTAP 2002-05-20 Completed University of 00:00:00 [facility] HIB 4 Dose Schedule 2002-05-20 Completed Unive rsity of 00:00:00 [facility] DTAP 2002-05-20 Completed University of 00:00:00 [facility] HIB 4 Dose Schedule 2002-05-20 Completed Unive rsity of 00:00:00 [facility] DTAP 2002-05-20 Completed University of 00:00:00 [facility] HIB 4 Dose Schedule 2002-05-20 Completed Unive rsity of 00:00:00 [facility] DTAP 2002-05-20 Completed University of 00:00:00 [facility] HIB 4 Dose Schedule 2002-05-20 Completed Unive rsity of 00:00:00 [facility] MMR 2002-02-22 Completed University of 00:00:00 [facility] Polio (IPV/OPV) 2002-02-22 Completed Universit y of 00:00:00 [facility] Varicella 2002-02-22 Completed University of (varivax)(chicken 00:00:00 [place] [facility] pox) Branch MMR 2002-02-22 Completed University of 00:00:00 [facility] Polio (IPV/OPV) 2002-02-22 Completed Universit y of 00:00:00 [facility] Varicella 2002-02-22 Completed University of (varivax)(chicken 00:00:00 [place] [facility] pox) Branch MMR 2002-02-22 Completed University of 00:00:00 [facility] Polio (IPV/OPV) 2002-02-22 Completed Universit y of 00:00:00 [facility] Varicella 2002-02-22 Completed University of (varivax)(chicken 00:00:00 [place] [facility] pox) Branch MMR 2002-02-22 Completed University of 00:00:00 [facility] Polio (IPV/OPV) 2002-02-22 Completed Universit y of 00:00:00 [facility] Varicella 2002-02-22 Completed University of (varivax)(chicken 00:00:00 [place] [facility] pox) Branch MMR 2002-02-22 Completed University of 00:00:00 [facility] Polio (IPV/OPV) 2002-02-22 Completed Universit y of 00:00:00 [facility] Varicella 2002-02-22 Completed University of (varivax)(chicken 00:00:00 [place] [facility] pox) Branch MMR 2002-02-22 Completed University of 00:00:00 [facility] Polio (IPV/OPV) 2002-02-22 Completed Universit y of 00:00:00 [facility] Varicella 2002-02-22 Completed University of (varivax)(chicken 00:00:00 [place] [facility] pox) [facility] MMR 2002-02-22 Completed University of 00:00:00 [facility] Polio (IPV/OPV) 2002-02-22 Completed Universit y of 00:00:00 [facility] Varicella 2002-02-22 Completed University of (varivax)(chicken 00:00:00 [place] [facility] pox) Branch Hep B, Adol or Pedi 2001 Completed Unive rsity of Dosage 00:00:00 [facility] Hep B, Adol or Pedi 2001 Completed Unive rsity of Dosage 00:00:00 [facility] Hep B, Adol or Pedi 2001 Completed Unive rsity of Dosage 00:00:00 [facility] Hep B, Adol or Pedi 2001 Completed Unive rsity of Dosage 00:00:00 [facility] Hep B, Adol or Pedi 2001 Completed Unive rsity of Dosage 00:00:00 [facility] Hep B, Adol or Pedi 2001 Completed Unive rsity of Dosage 00:00:00 [facility] Hep B, Adol or Pedi 2001 Completed Unive rsity of Dosage 00:00:00 [facility] DTAP 2001 Completed University of 00:00:00 [facility] HIB 4 Dose Schedule 2001 Completed Unive rsity of 00:00:00 [facility] DTAP 2001 Completed University of 00:00:00 [facility] Pneumococcal 7 2001 Completed University of Conjugate, PCV7 00:00:00 [place] [facility] (Prevnar7) Branch DTAP 2001 Completed University of 00:00:00 [facility] HIB 4 Dose Schedule 2001 Completed Unive rsity of 00:00:00 [facility] HIB 4 Dose Schedule 2001 Completed Unive rsity of 00:00:00 [facility] Pneumococcal 7 2001 Completed University of Conjugate, PCV7 00:00:00 [place] [facility] (Prevnar7) Branch DTAP 2001 Completed University of 00:00:00 [facility] HIB 4 Dose Schedule 2001 Completed Unive rsity of 00:00:00 [facility] Pneumococcal 7 2001 Completed University of Conjugate, PCV7 00:00:00 [place] [facility] (Prevnar7) Branch DTAP 2001 Completed University of 00:00:00 [facility] HIB 4 Dose Schedule 2001 Completed Unive rsity of 00:00:00 [facility] Pneumococcal 7 2001 Completed University of Conjugate, PCV7 00:00:00 [place] [facility] (Prevnar7) Branch DTAP 2001 Completed University of 00:00:00 [facility] HIB 4 Dose Schedule 2001 Completed Unive rsity of 00:00:00 [facility] Pneumococcal 7 2001 Completed University of Conjugate, PCV7 00:00:00 [place] [facility] (Prevnar7) Branch Pneumococcal 7 2001 Completed University of Conjugate, PCV7 00:00:00 [place] [facility] (Prevnar7) Branch DTAP 2001 Completed University of 00:00:00 [facility] HIB 4 Dose Schedule 2001 Completed Unive rsity of 00:00:00 [facility] Pneumococcal 7 2001 Completed University of Conjugate, PCV7 00:00:00 [place] [facility] (Prevnar7) Branch Hep B, Adol or Pedi 2001 Completed Unive rsity of Dosage 00:00:00 [facility] Hep B, Adol or Pedi 2001 Completed Unive rsity of Dosage 00:00:00 [facility] Hep B, Adol or Pedi 2001 Completed Unive rsity of Dosage 00:00:00 [facility] Hep B, Adol or Pedi 2001 Completed Unive rsity of Dosage 00:00:00 [facility] Hep B, Adol or Pedi 2001 Completed Unive rsity of Dosage 00:00:00 [facility] Hep B, Adol or Pedi 2001 Completed Unive rsity of Dosage 00:00:00 [facility] Hep B, Adol or Pedi 2001 Completed Unive rsity of Dosage 00:00:00 [facility] DTAP 2001 Completed University of 00:00:00 [facility] HIB 4 Dose Schedule 2001 Completed Unive rsity of 00:00:00 [facility] DTAP 2001 Completed University of 00:00:00 [facility] [facility] Polio (IPV/OPV) 2001 Completed [facility] y of 00:00:00 [facility] Pneumococcal 7 2001 Completed University of Conjugate, PCV7 00:00:00 [place] [facility] (Prevnar7) Branch DTAP 2001 Completed University of 00:00:00 [facility] HIB 4 Dose Schedule 2001 Completed Unive rsity of 00:00:00 [facility] HIB 4 Dose Schedule 2001 Completed Unive rsity of 00:00:00 [facility] Polio (IPV/OPV) 2001 Completed [facility]it y of 00:00:00 [facility] Pneumococcal 7 2001 Completed University of Conjugate, PCV7 00:00:00 [place] [facility] (Prevnar7) [facility] DTAP 2001 Completed University of 00:00:00 [facility] HIB 4 Dose Schedule 2001 Completed Unive rsity of 00:00:00 [facility] Polio (IPV/OPV) 2001 Completed [facility]it y of 00:00:00 [facility] Pneumococcal 7 2001 Completed University of Conjugate, PCV7 00:00:00 [place] [facility] (Prevnar7) [facility] DTAP 2001 Completed University of 00:00:00 [facility] HIB 4 Dose Schedule 2001 Completed Unive rsity of 00:00:00 [facility] Polio (IPV/OPV) 2001 Completed [facility]it y of 00:00:00 [facility] Pneumococcal 7 2001 Completed University of Conjugate, PCV7 00:00:00 [place] [facility] (Prevnar7) [facility] DTAP 2001 Completed University of 00:00:00 [facility] HIB 4 Dose Schedule 2001 Completed Unive rsity of 00:00:00 [facility] Polio (IPV/OPV) 2001 Completed [facility]it y of 00:00:00 [facility] Pneumococcal 7 2001 Completed University of Conjugate, PCV7 00:00:00 [facility] ical (Prevnar7) Branch Polio (IPV/OPV) 2001 Completed Universit y of 00:00:00 [facility] Pneumococcal 7 2001 Completed University of Conjugate, PCV7 00:00:00 [facility] ical (Prevnar7) Branch DTAP 2001 Completed University of 00:00:00 [facility] HIB 4 Dose Schedule 2001 Completed Unive rsity of 00:00:00 [facility] Polio (IPV/OPV) 2001 Completed [facility]it y of 00:00:00 [facility] Pneumococcal 7 2001 Completed University of Conjugate, PCV7 00:00:00 [facility] ical (Prevnar7) Branch Hep B, Adol or Pedi 2001 Completed Unive rsity of Dosage 00:00:00 [facility] Hep B, Adol or Pedi 2001 Completed Unive rsity of Dosage 00:00:00 [facility] Hep B, Adol or Pedi 2001 Completed Unive rsity of Dosage 00:00:00 [facility] Hep B, Adol or Pedi 2001 Completed Unive rsity of Dosage 00:00:00 [facility] Hep B, Adol or Pedi 2001 Completed Unive rsity of Dosage 00:00:00 [facility] Hep B, Adol or Pedi 2001 Completed Unive rsity of Dosage 00:00:00 [facility] Hep B, Adol or Pedi 2001 Completed Unive rsity of Dosage 00:00:00 [facility] DTAP 2001 Completed University of 00:00:00 [facility] DTAP 2001 Completed University of 00:00:00 [facility] HIB 4 Dose Schedule 2001 Completed Unive rsity of 00:00:00 [facility] Polio (IPV/OPV) 2001 Completed Universit y of 00:00:00 [facility] Pneumococcal 7 2001 Completed University of Conjugate, PCV7 00:00:00 [facility] ical (Prevnar7) Branch DTAP 2001 Completed University of 00:00:00 [facility] HIB 4 Dose Schedule 2001 Completed Unive rsity of 00:00:00 [facility] HIB 4 Dose Schedule 2001 Completed Unive rsity of 00:00:00 [facility] Polio (IPV/OPV) 2001 Completed [facility]it y of 00:00:00 [facility] Pneumococcal 7 2001 Completed University of Conjugate, PCV7 00:00:00 [place] [facility] (Prevnar7) [facility] DTAP 2001 Completed University of 00:00:00 [facility] HIB 4 Dose Schedule 2001 Completed Unive rsity of 00:00:00 [facility] Polio (IPV/OPV) 2001 Completed [facility]it y of 00:00:00 [facility] Pneumococcal 7 2001 Completed University of Conjugate, PCV7 00:00:00 [place] [facility] (Prevnar7) [facility] DTAP 2001 Completed University of 00:00:00 [facility] HIB 4 Dose Schedule 2001 Completed Unive rsity of 00:00:00 [facility] Polio (IPV/OPV) 2001 Completed [facility]it y of 00:00:00 [facility] Pneumococcal 7 2001 Completed University of Conjugate, PCV7 00:00:00 [place] [facility] (Prevnar7) [facility] DTAP 2001 Completed University of 00:00:00 [facility] HIB 4 Dose Schedule 2001 Completed Unive rsity of 00:00:00 [facility] Polio (IPV/OPV) 2001 Completed Universit y of 00:00:00 [facility] Pneumococcal 7 2001 Completed University of Conjugate, PCV7 00:00:00 [place] [facility] (Prevnar7) [facility] Polio (IPV/OPV) 2001 Completed [facility]it y of 00:00:00 [facility] Pneumococcal 7 2001 Completed University of Conjugate, PCV7 00:00:00 [place] [facility] (Prevnar7) [facility] DTAP 2001 Completed University of 00:00:00 [facility] HIB 4 Dose Schedule 2001 Completed Unive rsity of 00:00:00 [facility] Polio (IPV/OPV) 2001 Completed Universit y of 00:00:00 [facility] Pneumococcal 7 2001 Completed [facility], PCV7 00:00:00 [facility] ical (Prevnar7) Branch Vital Signs Vital Name Observation Time Observation Value Comments Source Body temperature 2020-08-29 20:34:00 36.11 [facility] 2020-08-29 20:34:00 93.849 kg Universi ty [facility] Body temperature 2020-08-29 20:34:00 36.11 Kimberly [facility] Body weight 2020-08-29 20:34:00 93.849 kg Universi ty [facility] Systolic blood 2019-04-07 21:13:00 112 mm[Hg] Univer sity of pressure [facility] Diastolic blood 2019-04-07 21:13:00 71 mm[Hg] Unive rsity of pressure [facility] Heart rate 2019-04-07 21:13:00 89 /min Universi [facility] Body temperature 2019-04-07 21:13:00 37.06 Kimberly [facility] Respiratory rate 2019-04-07 21:13:00 20 /min [facility] Body height 2019-04-07 21:13:00 177.5 cm Universi ty of [facility] Body weight 2019-04-07 21:13:00 98.521 kg Universi ty [facility] BMI 2019-04-07 21:13:00 31.27 kg/m2 [facility] Oxygen saturation in 2019-04-07 21:13:00 99 /min [facility] Arterial blood by [facility] Pulse oximetry Branch Procedures Procedure Date / Time Performing Clinician Source Performed ASSIGNMENT OF BENEFITS 2020-08-29 20:30:53 Doctor Unassigned, No [facility] GC & CHLAMYDIA AMPLIFIED 2019-04-07 22:29:00 Brook Baxter [facility] MENINGOCOCCAL B VACCINE, 2019-04-07 22:28:11 Brook Baxter [facility] OMV, 2 DOSE, IM Medical Branch ASSIGNMENT OF BENEFITS 2019-04-07 20:22:32 Doctor Unassigned, No [facility] Encounters Start End Encounter Admission Attending Care Care Encounter Source Date/Time Date/Time Type Type Clinicians Facility Department ID 2020-08-29 2020-08-29 [facility] [id number] Univers 15:02:55 23:59:00 Encounter Mey SPECIALTY [id number] [id number] [phone] Ms tonio NICOLE 809 [facility] 2020-08-29 2020-08-29 [facility] [id number] 14:32:29 16:45:19 Visit Mey SPECIALTY [id number] CARE [id number] CENTER AT [phone] COREY 198 [facility] [place] 2020-08-29 2020-08-29 [facility] [id number] Univers 14:32:29 16:45:19 Visit Mey SPECIALTY [id number] ity of CARE [id number] [facility] s CENTER AT [phone] Ms tonio NICOLE 198 [facility] 2020-08-29 2020-08-29 Outpatient Soraya [facility] [id number] Univers 14:40:00 14:40:00 MEY ity [facility] 2020-08-29 2020-08-29 Outpatient R CY [facility] [id number] Univers 09:45:00 09:45:00 MEY [id number] ity [facility] 2020-08-29 2020-08-29 Orders Doctor JIANG [id number] Univers 00:00:00 00:00:00 Only Unassigned, ORLY [id number] ity of [facility] [id number] Junior as [phone] [address] 2020-08-17 2020-08-17 Outpatient Soraya [facility] [id number] Univers 14:45:00 14:45:00 MEY ity [facility] 2019-04-07 2019-04-07 [facility] [id number] Univers 15:25:37 17:21:24 Visit Brook Walsh [id number] ity [facility] [id number] Juniorbernardo s Professio [phone] Ms dical nal [address] [facility] 2019-04-07 2019-04-07 Orders Doctor APOLINAR [id number] Univers 00:00:00 00:00:00 Only Unassigned, ORLY [id number] ity of [place] [facility] [id number] Junior as [phone] [address] Results Test Description Test Time Test Comments Results Result Comments Source GC & CHLAMYDIA AMPLIFIED ASSAY 2019-04-08 17:10:00 Test Item Value Reference Range Interpretation Comme nts Lab Interpretation (test code = 38937-8) [facility] AMPLIF[facility] [id number] 17:10:00 Test Item Value Reference Range Interpretation Comments Lab Interpretation (test code = Normal 56984-2) [facility]
[2021-11-14 05:08] LABS: Absolute Lymphocytes (CBC) 3.1 K/uL (0.7-4.9); Hematocrit 41.3 % (39.6-49.0); Lymphocytes % 35.3 % (15.3-44.8); RBC Red Blood Cell Count 5.03 M/uL (4.33-5.43)
[2021-11-14 05:18] LABS: ALT/SGPT 90 U/L (12-78); AST/SGOT 28 U/L (15-37); Albumin 3.6 g/dL (3.4-5.0); Alkaline Phosphatase 70 U/L (45-117); BUN Blood Urea Nitrogen 10 mg/dL (7-18); Bicarbonate 25 mmol/L (21-32); Bilirubin Direct < 0.1 mg/dL (0-0.2); Bilirubin Total 0.3 mg/dL (0.2-1.0); Glucose Level 121 mg/dL (74-106); Lipase 124 U/L (73-393); Potassium 3.8 mmol/L (3.5-5.1); Protein, Total 7.5 g/dL (6.4-8.2); Sodium Level 140 mmol/L (136-145)
[2021-11-14] MEDS ORDERED: ONDANSETRON 4 MG/2 ML VIAL ONE (06:26)
[2021-11-14] MEDS ORDERED: NA CHLORIDE 0.9% 500 ML ONE (06:26)
--- NOTE | 2021-11-14 07:45 | EDPHYS ---
Physician Documentation [facility] Name: Rocío Little Age: 21 yrs Sex: Male : 2000 Arrival Date: 11/14/2021 Time: 04:19 Bed 8 Private MD: ED Physician Aguilar Frederick HPI: 11/14 06:37 This 21 yrs old Male presents to ER via EMS with complaints of Dizziness. kdr 06:37 The patient presents with dizziness, feeling off balance, sense of spinning, vertigo. kdr Onset: The symptoms/episode began/occurred suddenly, just prior to arrival, this morning. Context: occurred at home, occurred while the patient was asleep, at rest. Modifying factors: The symptoms are alleviated by holding head still, the symptoms are aggravated by movement of head. Associated signs and symptoms: The patient has no apparent associated signs or symptoms. Severity of symptoms: At their worst the symptoms were mild in the emergency department the symptoms are unchanged. The patient has not experienced similar symptoms in the past. The patient has not recently seen a physician. Historical: - Allergies: 04:21 NKDA; kd3 - Home Meds: 04:21 None [Active]; kd3 - PMHx: 04:21 Asthma; kd3 - PSHx: 04:21 None; kd3 - Immunization history:: Adult Immunizations up to date, Flu vaccine is not up to date. - Social history:: Smoking status: Patient denies any tobacco usage or history of. ROS: 06:37 Constitutional: Negative for fever, chills, and weight loss, Eyes: Negative for injury, kdr pain, redness, and discharge, ENT: Negative for injury, pain, and discharge, Neck: Negative for injury, pain, and swelling, Cardiovascular: Negative for chest pain, palpitations, and edema, Respiratory: Negative for shortness of breath, cough, wheezing, and pleuritic chest pain, Abdomen/GI: Negative for abdominal pain, nausea, vomiting, diarrhea, and constipation, Back: Negative for injury and pain, : Negative for injury, bleeding, discharge, and swelling, MS/Extremity: Negative for injury and deformity, Skin: Negative for injury, rash, and discoloration, Psych: Negative for depression, anxiety, suicide ideation, homicidal ideation, and hallucinations, Allergy/Immunology: Negative for hives, rash, and allergies, Endocrine: Negative for neck swelling, polydipsia, polyuria, polyphagia, and marked weight changes, Hematologic/Lymphatic: Negative for swollen nodes, abnormal bleeding, and unusual bruising. 06:37 Neuro: Positive for dizziness, headache, Headache is very slight and frontal. Exam: 06:37 Constitutional: This is a well developed, well nourished patient who is awake, alert, kdr and in no acute distress. Head/Face: Normocephalic, atraumatic. Eyes: Pupils equal round and reactive to light, extra-ocular motions intact. Lids and lashes normal. Conjunctiva and sclera are non-icteric and not injected. Cornea within normal limits. Periorbital areas with no swelling, redness, or edema. Neck: Trachea midline, no thyromegaly or masses palpated, and no cervical lymphadenopathy. Supple, full range of motion without nuchal rigidity, or vertebral point tenderness. No Meningismus. Chest/axilla: Normal chest wall appearance and motion. Nontender with no deformity. No lesions are appreciated. Cardiovascular: Regular rate and rhythm with a normal S1 and S2. No gallops, murmurs, or rubs. Normal PMI, no JVD. No pulse deficits. Respiratory: Lungs have equal breath sounds bilaterally, clear to auscultation and percussion. No rales, rhonchi or wheezes noted. No increased work of breathing, no retractions or nasal flaring. Abdomen/GI: Soft, non-tender, with normal bowel sounds. No distension or tympany. No guarding or rebound. No evidence of tenderness throughout. Back: No spinal tenderness. No costovertebral tenderness. Full range of motion. Skin: Warm, dry with normal turgor. Normal color with no rashes, no lesions, and no evidence of cellulitis. MS/ Extremity: Pulses equal, no cyanosis. Neurovascular intact. Full, normal range of motion. Neuro: Awake and alert, GCS 15, oriented to person, place, time, and situation. Cranial nerves II-XII grossly intact. Motor strength 5/5 in all extremities. Sensory grossly intact. Cerebellar exam normal. Normal gait. Psych: Awake, alert, with orientation to person, place and time. Behavior, mood, and affect are within normal limits. Vital Signs: 04:20 BP 138 / 84; Pulse 79; Resp 16; Temp 98.4; Pulse Ox 99% on R/A; Weight 99.79 kg; Height kd3 5 ft. 10 in. (177.80 cm); Pain 3/10; 05:29 BP 124 / 72; Pulse 65; Resp 16; Pulse Ox 98% on R/A; kd3 06:32 BP 120 / 81; Pulse 65; Resp 16; Pulse Ox 100% ; kd3 06:40 BP 120 / 81; Pulse 70; Resp 18; Pulse Ox 99% on R/A; kd3 04:20 Body Mass Index 31.57 (99.79 kg, 177.80 cm) kd3 MDM: 05:20 Patient medically screened. kdr 06:37 Data reviewed: vital signs, nurses notes, lab test result(s), radiologic studies. kdr Counseling: I had a detailed discussion with the patient and/or guardian regarding: the historical points, exam findings, and any diagnostic results supporting the discharge/admit diagnosis, lab results, radiology results, the need for outpatient follow up. 11/14 04:43 Order name: Basic Metabolic Panel bb 11/14 04:43 Order name: CBC with Diff; Complete Time: 06:14 bb 11/14 04:43 Order name: Hepatic Function; Complete Time: 06:14 bb 11/14 04:43 Order name: Lipase; Complete Time: 06:14 bb 11/14 04:44 Order name: Basic Metabolic Panel; Complete Time: 06:14 EDMS 11/14 06:16 Order name: CT Head Brain wo Cont kdr 11/14 04:43 Order name: IV Saline Lock; Complete Time: 04:48 bb 11/14 04:43 Order name: Labs collected and sent; Complete Time: 04:48 bb Administered Medications: 06:31 Drug: Zofran (Ondansetron) 4 mg Route: IVP; Site: right antecubital; kd3 08:02 Follow up: Response: No adverse reaction; Nausea is decreased iw 06:31 Drug: NS 0.9% 500 ml Route: IV; Rate: bolus; Site: right antecubital; kd3 08:01 Follow up: IV Status: Completed infusion iw Disposition Summary: 11/14/21 07:44 Discharge Ordered Location: Home kdr Problem: new kdr Symptoms: are resolved kdr Condition: Stable kdr Diagnosis - Dizziness and giddiness kdr - Other peripheral vertigo kdr Followup: kdr - With: Private Physician - When: 2 - 3 days - Reason: If symptoms return, Further diagnostic work-up, Recheck today's complaints, Continuance of care, Re-evaluation by your physician Discharge Instructions: - Discharge Summary Sheet kdr - Vertigo, [id number] kdr - Dizziness, [id number] kdr Forms: - Medication Reconciliation Form kdr - Thank You Letter kdr Prescriptions: - Meclizine 25 mg Oral Tablet - take 1 tablet by ORAL route every 8 hours As needed; 15 tablet; Refills: 0, kdr Product Selection Permitted Signatures: Dispatcher [employer] EDMS Aguilar Frederick MD MD kdr Mickail, Joel, PA PA jmm Ballard, Brenda RN RN Carrie Rose RN RN kd3 Lissette Dennison RN iw
--- NOTE | 2021-11-14 07:45 | ER ---
Nurse's Notes [facility] Name: Rocío Little Age: 21 yrs Sex: Male : 2000 Arrival Date: 11/14/2021 Time: 04:19 Bed 8 Private MD: Diagnosis: Dizziness and giddiness;Other peripheral vertigo Presentation: 11/14 04:20 Chief complaint: EMS states: pt got dizzy and had some nausea and vomiting about an kd3 hour ago. Coronavirus screen: Vaccine status: Patient reports being unvaccinated. Ebola Screen: No symptoms or risks identified at this time. Initial Sepsis Screen: Does the patient meet any 2 criteria? No. Patient's initial sepsis screen is negative. Does the patient have a suspected source of infection? No. Patient's initial sepsis screen is negative. Risk Assessment: Do you want to hurt yourself or someone else? Patient reports no desire to harm self or others. Onset of symptoms was November 14, 2021. 04:20 Method Of Arrival: EMS: [facility] kd3 04:20 Acuity: LIZBETH 3 kd3 Triage Assessment: 04:21 General: Appears in no apparent distress. Behavior is calm, cooperative. Pain: kd3 Complains of pain in headache. Historical: - Allergies: 04:21 NKDA; kd3 - Home Meds: 04:21 None [Active]; kd3 - PMHx: 04:21 Asthma; kd3 - PSHx: 04:21 None; kd3 - Immunization history:: Adult Immunizations up to date, Flu vaccine is not up to date. - Social history:: Smoking status: Patient denies any tobacco usage or history of. Screenin:22 Abuse screen: Denies threats or abuse. Denies injuries from another. Nutritional kd3 screening: No deficits noted. Tuberculosis screening: No symptoms or risk factors identified. Fall Risk None identified. Assessment: 04:23 General: Appears in no apparent distress. Behavior is calm, cooperative. Pain: kd3 Complains of pain in headache. Neuro: Level of Consciousness is awake, alert, obeys commands, Oriented to person, place, time, situation. Cardiovascular: Patient's skin is warm and dry. Respiratory: Airway is patent Trachea midline Respiratory effort is even, unlabored. GI: No deficits noted. : No deficits noted. EENT: No deficits noted. Derm: No deficits noted. 07:12 Reassessment: Patient is alert, oriented x 3, equal unlabored respirations, skin aa5 warm/dry/pink. Patient states feeling better. Patient states symptoms have improved. Pt reports slight dizziness, reports nausea/vomiting have improved. Awaiting CT scan results, pt notified of wait time. Lights dimmed for comfort, pt states "I am going to try to go to sleep a little bit" . Vital Signs: 04:20 BP 138 / 84; Pulse 79; Resp 16; Temp 98.4; Pulse Ox 99% on R/A; Weight 99.79 kg; Height kd3 5 ft. 10 in. (177.80 cm); Pain 3/10; 05:29 BP 124 / 72; Pulse 65; Resp 16; Pulse Ox 98% on R/A; kd3 06:32 BP 120 / 81; Pulse 65; Resp 16; Pulse Ox 100% ; kd3 06:40 BP 120 / 81; Pulse 70; Resp 18; Pulse Ox 99% on R/A; kd3 04:20 Body Mass Index 31.57 (99.79 kg, 177.80 cm) kd3 ED Course: 04:19 Patient arrived in ED. ds4 04:20 Carrie Huynh, RN is Primary Nurse. kd3 04:21 Triage completed. kd3 04:23 Arm band placed on right wrist. kd3 04:23 Patient has correct armband on for positive identification. Bed in low position. Call kd3 light in reach. Side rails up X 1. Pulse ox on. NIBP on. 04:24 Inserted saline lock: 20 gauge in right antecubital area, using aseptic technique. kd3 04:48 Basic Metabolic Panel Sent. sm5 04:48 CBC with Diff Sent. sm5 04:48 Hepatic Function Sent. sm5 04:48 Lipase Sent. sm5 04:48 Basic Metabolic Panel Sent. sm5 05:20 Aguilar Frederick MD is Attending Physician. kdr 06:51 CT Head Brain wo Cont In Process Unspecified. EDMS 08:01 No provider procedures requiring assistance completed. IV discontinued, intact, iw bleeding controlled, No redness/swelling at site. Pressure dressing applied. Administered Medications: 06:31 Drug: Zofran (Ondansetron) 4 mg Route: IVP; Site: right antecubital; kd3 08:02 Follow up: Response: No adverse reaction; Nausea is decreased iw 06:31 Drug: NS 0.9% 500 ml Route: IV; Rate: bolus; Site: right antecubital; kd3 08:01 Follow up: IV Status: Completed infusion iw Outcome: 07:44 Discharge ordered by . kdr 08:01 Discharged to home ambulatory, with family. iw 08:01 Condition: good 08:01 Discharge instructions given to patient, Instructed on discharge instructions, follow up and referral plans. medication usage, Demonstrated understanding of instructions, follow-up care, medications, Prescriptions given X 1. 08:02 Patient left the ED. iw Signatures: Dispatcher [employer] EDMS Aguilar Frederick MD MD kdr Williams, Irene, RN RN iw Nataliya Marshall RN RN aa5 Kye Dahl4 Carrie Huynh RN RN kd3 Ilsa Cavazos RN RN sm5
--- NOTE | 2021-11-14 07:51 | RAD REPORT ---
EXAM DESCRIPTION: CT - Head Brain Wo Cont - 11/14/2021 6:51 am CLINICAL HISTORY: Dizziness COMPARISON: None. TECHNIQUE: Computed axial tomography of the head was obtained. IV contrast was not requested. All CT scans are performed using dose optimization technique as appropriate and may include automated exposure control or mA/KV adjustment according to patient size. FINDINGS: An intracranial bleed is not seen . The ventricles are normal in caliber. No extra-axial fluid collection is noted. Fluid within the sinuses/ mastoids is not seen. Mild to moderate chronic ethmoid sinusitis. Mild sheriff sergeant vipul sphenoid and frontal sinusitis IMPRESSION: No acute intracranial abnormality is seen. If patient's symptoms persist MRI of the bra in would be recommended.
[2021-11-14 08:08] VITALS: TEMP 98.4
[2021-11-14 08:10] VITALS: BP 120/81
[2021-11-14 08:12] VITALS: O2SAT 99
== END 2021-11-14 08:02 | disposition home or self-care (01) ==
LOC: ER 04:16
DX: H81.399 Other peripheral vertigo, unspecified ear (principal); R51.9 Headache, unspecified
CPT/HCPCS: 36415; 70450; 80048; 80076; 83690; 85025; 96361; 96374; 99284; J2405; J7040

== ENCOUNTER 2022-05-17 09:34 | Emergency (ER) | payer SELFPAY ==
--- OUTSIDE RECORDS SUMMARY | 2022-05-17 09:39 | XMS REPORT | Continuity of Care Document ---
:2001 Author Organization [facility] t Address 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 Social History Social Habit Start Date Stop Date Quantity Comments Source Exposure to Not sure [facility] SARS-CoV-[address] [facility] (event) Branch History of Cigarette Smoker Universi ty of tobacco use [facility] Sex Assigned At Universit y of [facility] Tobacco use and 2019-04-09 2019-04-09 Former user Universi ty of exposure 00:00:00 00:00:00 [facility] Alcohol intake 2019-04-09 2019-04-09 Current University of 00:00:00 00:00:00 non-drinker of [facility] alcohol (finding) Branch Tobacco Comment 2019-04-09 2019-04-09 E cigarette - Univer sity of 00:00:00 00:00:00 once per nine [place] [facility] days, non Branch nicotine, 04/07/2019 - no longer vapes. Smoking Status Start Date Stop Date Source Light tobacco smoker 2019-04-09 00:00:00 Univers ity [facility] Medications Ordered Filled Start Stop [...] 4mg Take 1 Uni vers (ZOFRAN 2-19 07-31 tablet by ity of ODT) 4 mg 00:00: 00:00 mouth [place] disintegrat 00 :00 every 8 Medic al ing tablet (eight) Branch hours as needed for Nausea and Vomiting (N/V). ondansetron 2017-09- No 4mg Take 1 Uni vers (ZOFRAN 2-19 07-31 tablet by ity of ODT) 4 mg 00:00: 00:00 mouth [place] disintegrat 00 :00 every 8 Medic al ing tablet (eight) Branch hours as needed for Nausea and Vomiting (N/V). No known No [facility] No known No [facility] medications [facility] No known No Univers medications [facility] Immunizations Ordered Immunization Filled Immunization Date Status Commen ts Source Name Name Meningococcal B, OMV 2019-04-07 Completed Univ ersity of 00:00:[address] [facility] Branch Meningococcal B, OMV 2019-04-07 Completed Univ ersity of 00:00:00 [facility] Meningococcal B, OMV 2019-04-07 Completed Univ ersity of 00:00:00 [facility] Meningococcal B, OMV 2019-04-07 Completed Univ ersity of 00:00:00 [facility] Meningococcal B, OMV 2019-04-07 Completed Univ ersity of 00:00:00 [facility] Meningococcal B, OMV 2019-04-07 Completed Univ ersity of 00:00:00 [facility] Meningococcal 2018-04-08 Completed University of Polysaccharide [...] Meningococcal 2018-04-08 Completed [facility] of Polysaccharide 00:00:00 [place] [facility] (groups A, C, Y and Branc h W-135) conjugate vaccine (MCV4P) Meningococcal 2018-04-08 Completed University of Polysaccharide 00:00:00 [place] [facility] (groups A, C, Y and Branc h W-135) conjugate vaccine (MCV4P) Meningococcal 2018-04-08 Completed University of Polysaccharide 00:00:00 [place] [facility] (groups A, C, Y and Branc h W-135) conjugate vaccine (MCV4P) Influenza Virus 2015-06-12 Completed Universit y of Vaccine 00:00:00 [facility] Influenza Virus 2015-06-12 Completed Universit y of Vaccine 00:00:00 [facility] Influenza Virus 2015-06-12 Completed Universit y of Vaccine 00:00:00 [facility] Influenza Virus 2015-06-12 Completed Universit y of Vaccine 00:00:00 [facility] Influenza Virus 2015-06-12 Completed Universit y of Vaccine 00:00:00 [facility] Influenza Virus 2015-06-12 Completed Universit y of Vaccine 00:00:00 [facility] Influenza Virus 2015-06-12 Completed Universit y of Vaccine 00:00:00 [facility] Influenza Virus 2013-07-28 Completed Universit y of Vaccine 00:00:00 [facility] Influenza Virus 2013-07-28 Completed Universit y of Vaccine 00:00:00 [facility] Influenza Virus 2013-07-28 Completed Universit y of Vaccine 00:00:00 [facility] Influenza Virus 2013-07-28 Completed Universit y of Vaccine 00:00:00 [facility] Influenza Virus 2013-07-28 Completed Universit y of Vaccine 00:00:00 [facility] Influenza Virus 2013-07-28 Completed Universit y of Vaccine 00:00:00 [facility] Influenza Virus 2013-07-28 Completed Universit y of Vaccine 00:00:[address] [facility] Branch HPV 2013-05-17 Completed University of 00:00:00 [facility] HPV 2013-05-17 Completed University of 00:00:00 [facility] HPV 2013-05-17 Completed University of 00:00:00 [facility] HPV 2013-05-17 Completed University of 00:00:00 [facility] HPV 2013-05-17 Completed University of 00:00:00 [facility] HPV 2013-05-17 Completed University of 00:00:[address] [facility] Branch HPV 2013-05-17 Completed University of 00:00:00 [facility] TDAP (ADACEL) VACCINE 2012-08-05 Completed Uni versity of 00:00:[address] [facility] Branch TDAP (ADACEL) VACCINE 2012-08-05 Completed Uni versity of 00:00:[address] [facility] Branch HPV 2012-08-05 Completed University of 00:00:[address] [facility] Branch Meningococcal Vaccine 2012-08-05 Completed Uni versity of 00:00:[address] [facility] Branch TDAP (ADACEL) VACCINE 2012-08-05 Completed Uni versity of 00:00:[address] [facility] Branch HPV 2012-08-05 Completed University of 00:00:[address] [facility] Branch Meningococcal Vaccine 2012-08-05 Completed Uni versity of 00:00:[address] [facility] Branch TDAP (ADACEL) VACCINE 2012-08-05 Completed Uni versity of 00:00:[address] [facility] Branch HPV 2012-08-05 Completed University of 00:00:[address] [facility] Branch Meningococcal Vaccine 2012-08-05 Completed Uni versity of 00:00:[address] [facility] Branch TDAP (ADACEL) VACCINE 2012-08-05 Completed Uni versity of 00:00:[address] [facility] Branch HPV 2012-08-05 Completed University of 00:00:[address] [facility] Branch HPV 2012-08-05 Completed University of 00:00:[address] [facility] Branch Meningococcal Vaccine 2012-08-05 Completed Uni versity of 00:00:00 [facility] TDAP (ADACEL) VACCINE 2012-08-05 Completed Uni versity of 00:00:00 [facility] HPV 2012-08-05 Completed University of 00:00:00 [facility] Meningococcal Vaccine 2012-08-05 Completed Uni versity of 00:00:00 [facility] Meningococcal Vaccine 2012-08-05 Completed Uni versity of 00:00:00 [facility] TDAP (ADACEL) VACCINE 2012-08-05 Completed Uni versity of 00:00:00 [facility] HPV 2012-08-05 Completed University of 00:00:00 [facility] Meningococcal Vaccine 2012-08-05 Completed Uni versity of 00:00:00 [facility] Influenza Virus 2012-06-23 Completed Universit y of Vaccine 00:00:00 [facility] Influenza Virus 2012-06-23 Completed Universit y of Vaccine 00:00:00 [facility] Influenza Virus 2012-06-23 Completed Universit y of Vaccine 00:00:00 [facility] Influenza Virus 2012-06-23 Completed Universit y of Vaccine 00:00:00 [facility] Influenza Virus 2012-06-23 Completed Universit y of Vaccine 00:00:00 [facility] Influenza Virus 2012-06-23 Completed Universit y of Vaccine 00:00:00 [facility] Influenza Virus 2012-06-23 Completed Universit y of Vaccine 00:00:00 [facility] HPV 2011-09-23 Completed University of 00:00:00 [facility] HPV 2011-09-23 Completed University of 00:00:00 [facility] HPV 2011-09-23 Completed University of 00:00:00 [facility] HPV 2011-09-23 Completed University of 00:00:00 [facility] HPV 2011-09-23 Completed University of 00:00:00 [facility] HPV 2011-09-23 Completed University of 00:00:00 [facility] HPV 2011-09-23 Completed University of 00:00:00 [facility] Influenza Virus 2011-08-27 Completed Universit y of Vaccine 00:00:00 [facility] Influenza Virus 2011-08-27 Completed Universit y of Vaccine 00:00:00 [facility] Influenza Virus 2011-08-27 Completed Universit y of Vaccine 00:00:00 [facility] Influenza Virus 2011-08-27 Completed Universit y of Vaccine 00:00:00 [facility] Influenza Virus 2011-08-27 Completed Universit y of Vaccine 00:00:00 [facility] Influenza Virus 2011-08-27 Completed Universit y of Vaccine 00:00:00 [facility] Influenza Virus 2011-08-27 Completed Universit y of Vaccine 00:00:00 [facility] Influenza Virus 2010-05-25 Completed Universit y of Vaccine 00:00:00 [facility] Influenza Virus 2010-05-25 Completed Universit y of Vaccine 00:00:00 [facility] Influenza Virus 2010-05-25 Completed Universit y of Vaccine 00:00:00 [facility] Influenza Virus 2010-05-25 Completed Universit y of Vaccine 00:00:00 [facility] Influenza Virus 2010-05-25 Completed Universit y of Vaccine 00:00:00 [facility] Influenza Virus 2010-05-25 Completed Universit y of Vaccine 00:00:00 [facility] Influenza Virus 2010-05-25 Completed Universit y of Vaccine 00:00:00 [facility] H1n1 Vaccine 2009-08-10 Completed University o f 00:00:00 [facility] H1n1 Vaccine 2009-08-10 Completed University o f 00:00:00 [facility] H1n1 Vaccine 2009-08-10 Completed University o f 00:00:[address] [facility] Branch H1n1 Vaccine 2009-08-10 Completed University o f 00:00:[address] [facility] H1n1 Vaccine 2009-08-10 Completed University o f 00:00:[address] [facility] H1n1 Vaccine 2009-08-10 Completed University o f 00:00:[address] [facility] H1n1 Vaccine 2009-08-10 Completed University o f 00:00:00 [facility] Influenza Virus 2008-06-27 Completed Universit y of Vaccine 00:00:00 [facility] Influenza Virus 2008-06-27 Completed Universit y of Vaccine 00:00:00 [facility] Influenza Virus 2008-06-27 Completed Universit y of Vaccine 00:00:[address] [facility] Branch Influenza Virus 2008-06-27 Completed Universit y of Vaccine 00:00:00 [place] [facility] Influenza Virus 2008-06-27 Completed Universit y of Vaccine 00:00:00 [facility] Influenza Virus 2008-06-27 Completed Universit y of Vaccine 00:00:00 [facility] Influenza Virus 2008-06-27 Completed Universit y of Vaccine 00:00:00 [facility] Influenza Virus 2007-09-29 Completed Universit y of Vaccine 00:00:00 [facility] Influenza Virus 2007-09-29 Completed Universit y of Vaccine 00:00:00 [facility] Influenza Virus 2007-09-29 Completed Universit y of Vaccine 00:00:00 [facility] Influenza Virus 2007-09-29 Completed Universit y of Vaccine 00:00:00 [facility] Influenza Virus 2007-09-29 Completed Universit y of Vaccine 00:00:00 [facility] Influenza Virus 2007-09-29 Completed Universit y of Vaccine 00:00:00 [facility] Influenza Virus 2007-09-29 Completed Universit y of Vaccine 00:00:00 [facility] Varicella 2006-09-29 Completed University of (varivax)(chicken [...] HEPATITIS A 2005-12-17 Completed University of 00:00:00 [facility] HEPATITIS A 2005-12-17 Completed University of 00:00:00 [facility] HEPATITIS A 2005-12-17 Completed University of 00:00:00 [facility] HEPATITIS A 2005-12-17 Completed University of 00:00:00 [facility] HEPATITIS A 2005-12-17 Completed University of 00:00:00 [facility] HEPATITIS A 2005-12-17 Completed University of 00:00:00 [facility] HEPATITIS A 2005-12-17 Completed University of 00:00:00 [facility] DTAP 2005-04-11 Completed University of 00:00:00 [facility] HEPATITIS A 2005-04-11 Completed University of 00:00:00 [facility] MMR 2005-04-11 Completed University of 00:00:00 [place] [...] Universit y of 00:00:00 [facility] HEPATITIS A [...] (IPV/OPV) 2005-04-11 Completed Universit y of 00:00:[address] [facility] Pneumococcal 7 2003-07-21 Completed University of [...] 00:00:00 [place] [facility] (Prevnar7) Branch DTAP 2002-05-20 Completed University of 00:00:00 [facility] HIB 4 Dose Schedule 2002-05-20 Completed Unive rsity of 00:00:00 [facility] DTAP 2002-05-20 Completed University of 00:00:00 [facility] DTAP 2002-05-20 Completed University of 00:00:00 [facility] HIB 4 Dose Schedule 2002-05-20 Completed Unive rsity of 00:00:00 [facility] HIB 4 Dose Schedule 2002-05-20 Completed Unive rsity of 00:00:00 [facility] DTAP 2002-05-20 Completed University of 00:00:00 [facility] HIB 4 Dose Schedule 2002-05-20 Completed Unive rsity of 00:00:00 [facility] DTAP 2002-05-20 Completed University of 00:00:00 [facility] HIB 4 Dose Schedule 2002-05-20 Completed Unive rsity of 00:00:00 [facility] DTAP 2002-05-20 Completed University of 00:00:00 [facility] HIB 4 Dose Schedule 2002-05-20 Completed Unive rsity of 00:00:00 [facility] DTAP 2002-05-20 Completed University of 00:00:00 [facility] HIB 4 Dose Schedule 2002-05-20 Completed Unive rsity of 00:00:00 [facility] MMR 2002-02-22 Completed University of 00:00:00 [facility] Polio (IPV/OPV) 2002-02-22 Completed Universit y of 00:00:00 [facility] Varicella 2002-02-22 Completed University of (varivax)(chicken 00:00:00 [place] [facility] pox) [facility] MMR 2002-02-22 Completed University of 00:00:00 [facility] Polio (IPV/OPV) 2002-02-22 Completed Universit y of 00:00:00 [facility] Varicella 2002-02-22 Completed University of (varivax)(chicken 00:00:00 [place] [facility] pox) [facility] MMR 2002-02-22 Completed University of 00:00:00 [facility] Polio (IPV/OPV) 2002-02-22 Completed Universit y of 00:00:00 [facility] Varicella 2002-02-22 Completed University of (varivax)(chicken 00:00:00 [place] [facility] pox) [facility] MMR 2002-02-22 Completed University of 00:00:00 [facility] Polio (IPV/OPV) 2002-02-22 Completed Universit y of 00:00:00 [facility] Varicella 2002-02-22 Completed University of (varivax)(chicken 00:00:00 [place] [facility] pox) [facility] 2002-02-22 Completed University of 00:00:00 [facility] Polio (IPV/OPV) 2002-02-22 Completed Universit y of 00:00:00 [facility] Varicella 2002-02-22 Completed University of (varivax)(chicken 00:00:00 [place] [facility] pox) Branch MMR 2002-02-22 Completed University of 00:00:00 [facility] Polio (IPV/OPV) 2002-02-22 Completed Universit y of 00:00:00 [facility] Varicella 2002-02-22 Completed University of (varivax)(chicken 00:00:00 [place] [facility] pox) Branch MMR 2002-02-22 Completed University of 00:00:00 [facility] Polio (IPV/OPV) 2002-02-22 Completed Universit y of 00:00:00 [facility] Varicella 2002-02-22 Completed University of (varivax)(chicken 00:00:00 [place] [facility] pox) Branch Hep B, Adol or Pedi 2001 Completed Unive rsity of Dosage 00:00:[address] [facility] Hep B, Adol or Pedi 2001 Completed Unive rsity of Dosage 00:00:[address] [facility] Hep B, Adol or Pedi 2001 Completed Unive rsity of Dosage 00:00:[address] [facility] Hep B, Adol or Pedi 2001 Completed Unive rsity of Dosage 00:00:[address] [facility] Hep B, Adol or Pedi 2001 Completed Unive rsity of Dosage 00:00:[address] [facility] Hep B, Adol or Pedi 2001 Completed Unive rsity of Dosage 00:00:00 [facility] Hep B, Adol or Pedi 2001 Completed Unive rsity of Dosage 00:00:00 [facility] DTAP 2001 Completed University of 00:00:00 [facility] HIB 4 Dose Schedule 2001 Completed Unive rsity of 00:00:00 [facility] DTAP 2001 Completed University of 00:00:00 [facility] Pneumococcal 7 2001 Completed University of Conjugate, PCV7 00:00:00 [place] [facility] (Prevnar7) [facility] DTAP 2001 Completed University of 00:00:00 [facility] HIB 4 Dose Schedule 2001 Completed Unive rsity of 00:00:00 [facility] HIB 4 Dose Schedule 2001 Completed Unive rsity of 00:00:00 [facility] Pneumococcal 7 2001 Completed University of Conjugate, PCV7 00:00:00 [place] [facility] (Prevnar7) Branch DTAP 2001 Completed University of 00:00:00 [facility] HIB 4 Dose Schedule 2001 Completed Unive rsity of 00:00:00 [facility] Pneumococcal 7 2001 Completed University of Conjugate, PCV7 00:00:00 [place] [facility] (Prevnar7) Branch DTAP 2001 Completed University of 00:00:00 [facility] HIB 4 Dose Schedule 2001 Completed Unive rsity of 00:00:00 [facility] Pneumococcal 7 2001 Completed University of Conjugate, PCV7 00:00:00 [place] [facility] (Prevnar7) Branch DTAP 2001 Completed University of 00:00:00 [facility] HIB 4 Dose Schedule 2001 Completed Unive rsity of 00:00:00 [facility] Pneumococcal 7 2001 Completed University of Conjugate, PCV7 00:00:00 [place] [facility] (Prevnar7) Branch Pneumococcal 7 2001 Completed University of Conjugate, PCV7 00:00:00 [place] [facility] (Prevnar7) Branch DTAP 2001 Completed [facility] of 00:00:00 [facility] HIB 4 Dose Schedule 2001 Completed Unive rsity of 00:00:00 [facility] Pneumococcal 7 2001 Completed University of Conjugate, PCV7 00:00:00 [facility] ical (Prevnar7) Branch Hep B, Adol or Pedi 2001 Completed Unive rsity of Dosage 00:00:00 [facility] Hep B, Adol or Pedi 2001 Completed Unive rsity of Dosage 00:00:00 [facility] Hep B, Adol or Pedi 2001 Completed Unive rsity of Dosage 00:00:00 [facility] Hep B, Adol or Pedi 2001 Completed Unive rsity of Dosage 00:00:00 [facility] Hep B, Adol or Pedi 2001 Completed Unive rsity of Dosage 00:00:00 [facility] Hep B, Adol or Pedi 2001 Completed Unive rsity of Dosage 00:00:00 [facility] Hep B, Adol or Pedi 2001 Completed Unive rsity of Dosage 00:00:00 [facility] DTAP 2001 Completed University of 00:00:00 [facility] HIB 4 Dose Schedule 2001 Completed Unive rsity of 00:00:00 [facility] DTAP 2001 Completed University of 00:00:00 [facility] Polio (IPV/OPV) 2001 Completed Universit y of 00:00:00 [facility] Pneumococcal 7 2001 Completed University of Conjugate, PCV7 00:00:00 [place] [facility] (Prevnar7) Branch DTAP 2001 Completed University of 00:00:00 [facility] HIB 4 Dose Schedule 2001 Completed Unive rsity of 00:00:00 [facility] HIB 4 Dose Schedule 2001 Completed Unive rsity of 00:00:00 [facility] Polio (IPV/OPV) 2001 Completed Universit y of 00:00:00 [facility] Pneumococcal 7 2001 Completed University of Conjugate, PCV7 00:00:00 [place] [facility] (Prevnar7) Branch DTAP 2001 Completed [facility] of 00:00:00 [facility] HIB 4 Dose Schedule 2001 Completed Unive rsity of 00:00:00 [facility] Polio (IPV/OPV) 2001 Completed Universit y of 00:00:00 [facility] Pneumococcal 7 2001 Completed University of Conjugate, PCV7 00:00:00 [place] [facility] (Prevnar7) Branch DTAP 2001 Completed [facility] of 00:00:00 [facility] HIB 4 Dose Schedule 2001 Completed Unive rsity of 00:00:00 [facility] Polio (IPV/OPV) 2001 Completed Universit y of 00:00:00 [facility] Pneumococcal 7 2001 Completed University of Conjugate, PCV7 00:00:00 [place] [facility] (Prevnar7) Branch DTAP 2001 Completed [facility] of 00:00:00 [facility] HIB 4 Dose Schedule 2001 Completed Unive rsity of 00:00:00 [facility] Polio (IPV/OPV) 2001 Completed Universit y of 00:00:00 [facility] Pneumococcal 7 2001 Completed University of Conjugate, PCV7 00:00:00 [place] [facility] (Prevnar7) Branch Polio (IPV/OPV) 2001 Completed Universit y of 00:00:00 [facility] Pneumococcal 7 2001 Completed University of Conjugate, PCV7 00:00:00 [place] [facility] (Prevnar7) Branch DTAP 2001 Completed University of 00:00:00 [facility] HIB 4 Dose Schedule 2001 Completed Unive rsity of 00:00:00 [facility] Polio (IPV/OPV) 2001 Completed Universit y of 00:00:00 [facility] Pneumococcal 7 2001 Completed University of Conjugate, PCV7 00:00:00 [place] [facility] (Prevnar7) Branch Hep B, Adol or Pedi 2001 Completed Unive rsity of Dosage 00:00:00 [facility] Hep B, Adol or Pedi 2001 Completed Unive rsity of Dosage 00:00:[address] [facility] Hep B, Adol or Pedi 2001 Completed Unive rsity of Dosage 00:00:00 [facility] Hep B, Adol or Pedi 2001 Completed Unive rsity of Dosage 00:00:00 [facility] Hep B, Adol or Pedi 2001 Completed Unive rsity of Dosage 00:00:00 [facility] Hep B, Adol or Pedi 2001 Completed Unive rsity of Dosage 00:00:00 [facility] Hep B, Adol or Pedi 2001 Completed Unive rsity of Dosage 00:00:00 [facility] DTAP 2001 Completed University of 00:00:00 [facility] DTAP 2001 Completed [facility] of 00:00:00 [facility] HIB 4 Dose Schedule 2001 Completed Unive rsity of 00:00:00 [facility] Polio (IPV/OPV) 2001 Completed Universit y [facility] 00:00:00 [facility] Pneumococcal 7 2001 Completed University of Conjugate, PCV7 00:00:00 [place] [facility] (Prevnar7) [facility] DTAP 2001 Completed [facility] of 00:00:00 [facility] HIB 4 Dose Schedule 2001 Completed Unive rsity of 00:00:00 [facility] HIB 4 Dose Schedule 2001 Completed Unive rsity of 00:00:00 [facility] Polio (IPV/OPV) 2001 Completed Univers[facility] y [facility] 00:00:00 [facility] Pneumococcal 7 2001 Completed University of Conjugate, PCV7 00:00:00 [place] [facility] (Prevnar7) [facility] DTAP 2001 Completed [facility] of 00:00:00 [facility] HIB 4 Dose Schedule 2001 Completed Unive rsity of 00:00:00 [facility] Polio (IPV/OPV) 2001 Completed [facility] y [facility] 00:00:00 [facility] Pneumococcal 7 2001 Completed University of Conjugate, PCV7 00:00:00 [place] [facility] (Prevn[facility] DTAP 2001 Completed [facility] 00:00:00 [facility] HIB 4 Dose Schedule 2001 Completed Unive rsity of 00:00:00 [facility] Polio (IPV/OPV) 2001 Completed [facility] 00:[facility]:00 [facility] Pneumococcal 7 2001 Completed University of Conjugate, PCV7 00:00:00 [place] [facility] (Prevnar7) [facility] DTAP 2001 Completed [facility] 00:00:00 [facility] HIB 4 Dose Schedule 2001 Completed Unive rsity of 00:00:00 [facility] Polio (IPV/OPV) 2001 Completed [facility] 00:[facility]:00 [facility] Pneumococcal 7 2001 Completed University of Conjugate, PCV7 00:00:00 [place] [facility] (Pre[facility] Polio (IPV/OPV) 2001 Completed [facility] 00:00:00 [facility] Pneumococcal 7 2001 Completed University of Conjugate, PCV7 00:00:00 [place] [facility] (Prevn[facility] DTAP 2001 Completed [facility] 00:00:00 [facility] HIB 4 Dose Schedule 2001 Completed Unive rsity of 00:00:00 [facility] Polio (IPV/OPV) 2001 Completed [facility] 00:00:00 [facility] Pneumococcal 7 2001 Completed University of Conjugate, PCV7 00:00:00 [place] [facility] Vital Signs Vital Name Observation Time Observation Value Comments Source Body temperature 2020-08-29 20:34:00 36.11 Kimberly [facility] weight 2020-08-29 20:34:00 93.[address] [facility] Body temperature 2020-08-29 20:34:00 36.11 Kimberly [facility] Body weight 2020-08-29 20:34:00 93.849 kg [facility] Body temperature 2019-04-07 21:13:00 37.06 Kimberly [facility] Respiratory rate 2019-04-07 21:13:00 20 /min [facility] Body height 2019-04-07 21:13:00 177.5 cm Universi ty [facility] Body weight 2019-04-07 21:13:00 98.521 kg Universi ty [facility] BMI 2019-04-07 21:13:00 31.27 kg/m2 [facility] Oxygen saturation in 2019-04-07 21:13:00 99 /min [facility] Arterial blood by [facility] Pulse oximetry Pearl Systolic blood 2019-04-07 21:13:00 112 mm[Hg] [facility] pressure [facility] Diastolic blood 2019-04-07 21:13:00 71 mm[Hg] [facility] 2019-04-07 21:13:00 89 /min General acute hospital Procedures Procedure Date / Time Performing Clinician Source Performed ASSIGNMENT OF BENEFITS 2020-08-29 20:30:53 Doctor Unassigned, No [facility] GC & CHLAMYDIA AMPLIFIED 2019-04-07 22:29:00 Brook Baxter [facility] MENINGOCOCCAL B VACCINE, 2019-04-07 22:28:11 Brook Baxter [facility] OMV, 2 DOSE, IM [facility] ASSIGNMENT OF BENEFITS 2019-04-07 20:22:32 Doctor Unassigned, No [facility] Encounters Start End Encounter Admission Attending Care Care Encounter Source Date/Time Date/Time Type Type Clinicians Facility Department ID 2020-08-29 2020-08-29 [facility] Phil WYSHEYLA [id number] [facility] 15:02:55 23:59:00 Encounter Mey SPECIALTY [id number] ity of CARE [id number] [facility] AT [phone] Ar dical VICTOR [address] [place] 2020-08-29 2020-08-29 Office Phil WYSHEYLA [id number] 14:32:29 16:45:19 Visit Mey SPECIALTY [id number] CARE [id number] CENTER AT [phone] COREY Yepez [facility] 2020-08-29 2020-08-29 [facility] [id number] Univers 14:32:29 16:45:19 Visit Mey SPECIALTY [id number] [id number] [phone] Ar dicjose guadalupe NICOLE [facility] 2020-08-29 2020-08-29 [id number] Univers 14:40:00 14:40:00 MEY ity [facility] 2020-08-29 2020-08-29 [facility] [id number] Univers 09:45:00 09:45:[id number]y [address] [facility] 2020-08-29 2020-08-29 Orders Doctor APOLINAR [id number] Univers 00:00:00 00:00:00 Only Unassigned, ORLY [id number] ity of [facility] [id number] Junior as [phone] [address] 2020-08-17 2020-08-17 Outpatient R [facility] [id number] Univers 14:45:00 14:45:[address] [facility] 2019-04-07 2019-04-07 [facility] [id number] Univers 15:25:37 17:21:24 Visit Brook Walsh [id number] [id number] [phone] Ar tonio orellana [address] [facility] 2019-04-07 2019-04-07 Orders Doctor JIANG [id number] Univers 00:00:00 00:00:00 Only Unassigned, ORLY [id number] it[facility] of [facility] [id number] Junior as [phone] [address] Results Test Description Test Time Test Comments Results Result Comments Source GC & CHLAMYDIA AMPLIFIED ASSAY 2019-04-08 17:10:00 Test Item Value Reference Range Interpretation Comme nts Lab Interpretation (test code = 84380-8) Normal [facility] [id number] 17:10:00 Test Item Value Reference Range Interpretation Comments Lab Interpretation (test code = Normal 06884-7) [facility]
[2022-05-17] MEDS ORDERED: CYCLOBENZAPRINE 10 MG TAB ONE (10:30)
[2022-05-17] MEDS ORDERED: KETOROLAC 30 MG/ML INJ ONE ×2 (10:31→10:36)
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
[2022-05-17 11:17] VITALS: BP 131/72; TEMP 98.1; O2SAT 99
== END 2022-05-17 11:11 | disposition home or self-care (01) ==
LOC: ER 09:34
DX: M54.50 Low back pain, unspecified (principal)
CPT/HCPCS: 96372; 99283

== ENCOUNTER 2023-02-19 19:35 | Emergency (ER) | payer OTHER ==
--- OUTSIDE RECORDS SUMMARY | 2023-02-19 19:44 | XMS REPORT | Continuity of Care Document ---
:2000 Author Organization [facility] t Address [address] [facility]. [address] [place] [address] Care Team Providers Name Role Phone VERN MCCANN Primary Care Physician Unavailable VERN MCCANN Attending Clinician Unavailable HILTON BARRIOS Attending Clinician Unavailable PETEY MORALES Attending Clinician Unavailable PETEY MORALES Attending Clinician Unavailable MICHAEL CHAVEZ Attending Clinician Unavailable Michael Chavez MD Attending Clinician Vern Linda Attending Clinician Doctor Unassigned, Gann Attending Clinician Unavailable Lab, Ang - Db Attending Clinician Unavailable Petey Morales MD Attending Clinician Mey Chowdary Attending Clinician MEY BENOIT Attending Clinician Unavailable Brook Baxter MD Attending Clinician MICHAEL CHAVEZ Admitting Clinician Unavailable Payers Payer Name Policy Type Policy Number Effective Date Expiration Date S jm [facility] STAR [id number] 2022 00:00:00 PLUS Problems Condition Condition Condition Status Onset Resolution Last Treating Co mments Source Name Details Category Date Date Treatment Clinician Date Need for Need for Disease Active 2021-09 Unive rs hepatitis hepatitis 09-16 ity of C C 00:00: [place] screening screening 00 Medi nerissa test test Branch 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 09-16 ity of 00:00: [place] 00 Medical Branch Seizure-li Seizure-li Disease Active 2021-09 U nivers ke ke 109 ity of activity activity 00:00: [place] [facility] Left hip Left hip Disease Active 2021-09 Unive rs pain pain 09-14 ity of 00:00: [place] [facility] Acute Acute Disease Active 2021-09 Univers left-sided left-sided 09-14 it y of thoracic thoracic 00:00: [place] back pain back pain [facility] Need for Need for Disease Active 2021-09 Unive rs vaccinatio vaccinatio 09-14 it y of n n 00:00: [place] [facility] Return to Return to Disease Active 2021-09 Uni vers work work 09-14 [place] [facility] Scoliosis Scoliosis Disease Active 2021-09 Uni vers of of 09-14 ity of thoracic thoracic 00:00: [place] spine, spine, 00 Medical unspecifie unspecifie Br anch d d scoliosis scoliosis type type BMI BMI Disease Active Univers 31.0-31.9, 31.0-31.9, 8-02 it y of adult adult 00:00: [place] [facility] 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 (event) Branch Alcohol intake 2022-08-13 2022-08-13 Current University of 00:00:00 00:00:00 non-drinker of [facility] alcohol (finding) [place] Tobacco use and 2022-07-15 2022-07-15 Former smokeless Uni versity of exposure 00:00:00 00:00:00 tobacco user [facility] l [place] Tobacco Comment 2022-07-15 2022-07-15 E cigarette - Univer sity of 00:00:00 00:00:00 once per nine [place] Medic al days, non Branch nicotine, 04/07/2019 - no longer vapes. Sex Assigned At [birth year] Universit y of 00:00:00 00:00:00 [facility] Smoking Status Start Date Stop Date Source Light tobacco smoker 2022-07-15 00:00:00 Univers ity of [facility] Medications Ordered Filled Start Stop Current Ordering Indication Dosage Frequency Signature Comments Components Source Medication Medication Date Date Medication? Clinician (SIG) Name Name gabapentin 2021-09- No [id number] 300mg Univers (NEURONTIN) 10-15 ity of capsule 300 02:00: 20:28 [place] mg 00 :26 [facility] gabapentin 2021-09- No [id number] 300mg Univers (NEURONTIN) 10-15 ity of capsule 300 02:00: 20:28 [place] mg 00 :26 [facility] gabapentin 2021-09- No [id number] 300mg Univers (NEURONTIN) 10-15 ity of capsule 300 02:00: 20:28 [place] mg 00 :26 [facility] Branch methylPREDN 2021-09 Yes [id number] Follow Univers ISolone 2-06 package ity of (MEDROL, 00:00: directions Junior as BRANT,) 4 mg 00 Medical tablets Branch methylPREDN 2021-09 Yes [id number] Follow Univers ISolone 2-06 package ity of (MEDROL, 00:00: directions Junior as BRANT,) 4 mg 00 Medical tablets Branch methylPREDN 2021-09 Yes [id number] Follow Univers ISolone 2-06 package ity of (MEDROL, 00:00: directions [place] as BRANT,) 4 mg 00 Medical tablets Branch methylPREDN 2021-09 Yes [id number] Follow Univers ISolone 2-06 package ity of (MEDROL, 00:00: directions [place] as BRANT,) 4 mg 00 Medical tablets Branch methylPREDN 2021-09 Yes [id number] Follow Univers ISolone 2-06 package ity of (MEDROL, 00:00: directions Junior as BRANT,) 4 mg 00 Medical tablets Branch methylPREDN 2021-09 Yes [id number] Follow Univers ISolone 2-06 package ity of (MEDROL, 00:00: directions Junior as BRANT,) 4 mg 00 Medical tablets Branch methocarbam 2021-09- No [id number] 500mg Take 1 Univers oL 500 mg 2-14 tablet by ity of tablet 00:00: 05:59 mouth 4 [place] 00 :00 ([facility] daily for 7 days. meloxicam 2021-09- No [id number] 7.5mg Take 1 Univers 7.5 mg 2- 12-14 tablet by ity of tablet 00:00: 05:59 mouth in [place] 00 :00 [facility] for 7 days. gabapentin 2021-09- No [id number] 300mg Take 1 Univers 300 mg 2-14 capsule by ity of capsule 00:00: 05:59 mouth in [place] 00 :00 [facility] and 1 capsule at noon and 1 capsule in the evening. Do all this for 7 days. methocarbam 2021-09- No [id number] 500mg Take 1 Univers oL 500 mg 2-14 tablet by ity of tablet 00:00: 05:59 mouth 4 [place] 00 :00 ([facility] daily for 7 days. meloxicam 2021-09- No [id number] 7.5mg Take 1 Univers 7.5 mg 2-14 tablet by ity of tablet 00:00: 05:59 mouth in [place] 00 :00 [facility] for 7 days. gabapentin 2021-09- No [id number] 300mg Take 1 Univers 300 mg 10-14-14 capsule by ity of capsule 00:00: 05:59 mouth in [place] 00 :00 [facility] and 1 capsule at noon and 1 capsule in the evening. Do all this for 7 days. methocarbam 2021-09- No [id number] 500mg Take 1 Univers oL 500 mg 2-14 tablet by ity of tablet 00:00: 05:59 mouth 4 [place] 00 :00 ([facility] daily for 7 days. meloxicam 2021-09- No [id number] 7.5mg Take 1 Univers 7.5 mg 2- 12-14 tablet by ity of tablet 00:00: 05:59 mouth in [place] 00 :00 [facility] for 7 days. gabapentin 2021-09- No [id number] 300mg Take 1 Univers 300 mg 2- 12-14 capsule by ity of capsule 00:00: 05:59 mouth in [place] 00 :00 the Medical morning Branch and 1 capsule at noon and 1 capsule in the evening. Do all this for 7 days. methocarbam 2021-09- No [id number] 500mg Take 1 Univers oL 500 mg 2-14 tablet by ity of tablet 00:00: 05:59 mouth 4 [place] 00 :00 (four) [facility] times [place] daily for 7 days. meloxicam 2021-09- No [id number] 7.5mg Take 1 Univers 7.5 mg 10-14-14 tablet by ity of tablet 00:00: 05:59 mouth in [place] 00 :00 the [facility] for 7 days. gabapentin 2021-09- No [id number] 300mg Take 1 Univers 300 mg 10-14-14 capsule by ity of capsule 00:00: 05:59 mouth in [place] 00 :00 the [facility] morning [place] and 1 capsule at noon and 1 capsule in the evening. Do all this for 7 days. methocarbam 2021-09- No [id number] 500mg Take 1 Univers oL 500 mg 10-14-14 tablet by ity of tablet 00:00: 05:59 mouth 4 [place] 00 :00 ([facility] daily for 7 days. meloxicam 2021-09- No [id number] 7.5mg Take 1 Univers 7.5 mg 10-14-14 tablet by ity of tablet 00:00: 05:59 mouth in [place] 00 :00 the [facility] for 7 days. gabapentin 2021-09- No [id number] 300mg Take 1 Univers 300 mg 10-14-14 capsule by ity of capsule 00:00: 05:59 mouth in [place] 00 :00 the Medical morning Branch and 1 capsule at noon and 1 capsule in the evening. Do all this for 7 days. cyclobenzap 2021-09 Yes [id number] 5mg Take 1 Univers rine 5 mg 1-07 tablet by ity o f tablet 00:00: mouth in [place] 00 the Medical morning Branch and 1 tablet at noon and 1 tablet in the evening. cyclobenzap 2021-09 Yes [id number] 5mg Take 1 Univers rine 5 mg 1-07 tablet by ity o f tablet 00:00: mouth in [place] 00 the Medical morning Branch and 1 tablet at noon and 1 tablet in the evening. cyclobenzap 2021-09 Yes [id number] 5mg Take 1 Univers rine 5 mg 1-07 tablet by ity o f tablet 00:00: mouth in [place] 00 the Medical morning Branch and 1 tablet at noon and 1 tablet in the evening. cyclobenzap 2021-09 Yes [id number] 5mg Take 1 Univers rine 5 mg 1-07 tablet by ity o f tablet 00:00: mouth in [place] 00 the Medical morning Branch and 1 tablet at noon and 1 tablet in the evening. cyclobenzap 2021-09 Yes [id number] 5mg Take 1 Univers rine 5 mg 1-07 tablet by ity o f tablet 00:00: mouth in [place] 00 the Medical morning Branch and 1 tablet at noon and 1 tablet in the evening. cyclobenzap 2021-09 Yes [id number] 5mg Take 1 Univers rine 5 mg 1-07 tablet by ity o f tablet 00:00: mouth in [place] 00 the Medical morning Branch and 1 tablet at noon and 1 tablet in the evening. cyclobenzap 2021-09 Yes [id number] 5mg Take 1 Univers rine 5 mg 1-07 tablet by ity o f tablet 00:00: mouth in [place] 00 the Medical morning Branch and 1 tablet at noon and 1 tablet in the evening. cyclobenzap 2021-09 Yes [id number] 5mg Take 1 Univers rine 5 mg 1-07 tablet by ity o f tablet 00:00: mouth in [place] 00 the Medical morning Branch and 1 tablet at noon and 1 tablet in the evening. cyclobenzap 2021-09 Yes [id number] 5mg Take 1 Univers rine 5 mg 1-07 tablet by ity o f tablet 00:00: mouth in [place] 00 the Medical morning Branch and 1 tablet at noon and 1 tablet in the evening. cyclobenzap 2021-09 Yes [id number] 5mg Take 1 Univers rine 5 mg 1-07 tablet by ity o f tablet 00:00: mouth in [place] 00 the Medical morning Branch and 1 tablet at noon and 1 tablet in the evening. cyclobenzap 2021-09 Yes [id number] 5mg Take 1 Univers rine 5 mg 1-07 tablet by ity o f tablet 00:00: mouth in [place] 00 the Medical morning Branch and 1 tablet at noon and 1 tablet in the evening. cyclobenzap 2021-09 Yes [id number] 5mg Take 1 Univers rine 5 mg 1-07 tablet by ity o f tablet 00:00: mouth in [place] 00 the Medical morning Branch and 1 tablet at noon and 1 tablet in the evening. cyclobenzap 2021-09 Yes [id number] 5mg Take 1 Univers rine 5 mg 1-07 tablet by ity o f tablet 00:00: mouth in [place] 00 the Medical morning Branch and 1 tablet at noon and 1 tablet in the evening. cyclobenzap 2021-09 Yes [id number] 5mg Take 1 Univers rine 5 mg 1-07 tablet by ity o f tablet 00:00: mouth in [place] 00 the Medical morning Branch and 1 tablet at noon and 1 tablet in the evening. cyclobenzap 2021-09 Yes [id number] 5mg Take 1 Univers rine 5 mg 1-07 tablet by ity o f tablet 00:00: mouth in [place] 00 the Medical morning Branch and 1 tablet at noon and 1 tablet in the evening. cyclobenzap 2021-09 Yes [id number] 5mg Take 1 Univers rine 5 mg 1-07 tablet by ity o f tablet 00:00: mouth in [place] 00 the Medical morning Branch and 1 tablet at noon and 1 tablet in the evening. cyclobenzap 2021-09 Yes [id number] 5mg Take 1 Univers rine 5 mg 1-07 tablet by ity o f tablet 00:00: mouth in [place] 00 the Medical morning Branch and 1 tablet at noon and 1 tablet in the evening. cyclobenzap 2021-09 Yes [id number] 5mg Take 1 Univers rine 5 mg 1-07 tablet by ity o f tablet 00:00: mouth in [place] 00 the Medical morning Branch and 1 tablet at noon and 1 tablet in the evening. cyclobenzap 2021-09 Yes [id number] 5mg Take 1 Univers rine 5 mg 1-07 tablet by ity o f tablet 00:00: mouth in [place] 00 the Medical morning Branch and 1 tablet at noon and 1 tablet in the evening. cyclobenzap 2021-09 Yes [id number] 5mg Take 1 Univers rine 5 mg 1-07 tablet by ity o f tablet 00:00: mouth in [place] 00 the Medical morning Branch and 1 tablet at noon and 1 tablet in the evening. ibuprofen 2021-09- No [id number] 800mg Take 1 Univers 800 mg 09-14 tablet by ity of tablet 00:00: 05:59 mouth [place] 00 :00 every 6 Medical (six) Branch hours as needed for Pain (scale 4-6) for up to 14 days. ibuprofen 2021-09- No [id number] 800mg Take 1 Univers 800 mg 09-14 tablet by ity of tablet 00:00: 05:59 mouth [place] 00 :00 every 6 Medical (six) Branch hours as needed for Pain (scale 4-6) for up to 14 days. ibuprofen 2021-09- No [id number] 800mg Take 1 Univers 800 mg 09-14 tablet by ity of tablet 00:00: 05:59 mouth [place] 00 :00 every 6 Medical (six) Branch hours as needed for Pain (scale 4-6) for up to 14 days. ibuprofen 2021-09- No [id number] 800mg Take 1 Univers 800 mg 09-14 tablet by ity of tablet 00:00: 05:59 mouth [place] 00 :00 every 6 Medical (six) Branch hours as needed for Pain (scale 4-6) for up to 14 days. ibuprofen 2021-09- No [id number] 800mg Take 1 Univers 800 mg 09-14 tablet by ity of tablet 00:00: 05:59 mouth [place] 00 :00 every 6 Medical (six) Branch hours as needed for Pain (scale 4-6) for up to 14 days. ibuprofen 2021-09- No [id number] 800mg Take 1 Univers 800 mg 09-14 tablet by ity of tablet 00:00: 05:59 mouth [place] 00 :00 every 6 Medical (six) Branch hours as needed for Pain (scale 4-6) for up to 14 days. ibuprofen 2021-09- No [id number] 800mg Take 1 Univers 800 mg 09-14 tablet by ity of tablet 00:00: 05:59 mouth [place] 00 :00 every 6 Medical (six) Branch hours as needed for Pain (scale 4-6) for up to 14 days. ibuprofen 2021-09- No [id number] 800mg Take 1 Univers 800 mg 09-14 tablet by ity of tablet 00:00: 05:59 mouth [place] 00 :00 every 6 Medical (six) Branch hours as needed for Pain (scale 4-6) for up to 14 days. ondansetron 2017-09 Yes 4mg Take 1 Univ ers (ZOFRAN 2-19 tablet by ity of ODT) 4 mg 00:00: mouth [place] disintegrat 00 every 8 Medic al ing tablet (eight) Branch hours as needed for Nausea and Vomiting (N/V). ondansetron 2017-09- No 4mg Take 1 Uni vers (ZOFRAN 2-26 03- tablet by ity of ODT) 4 mg 00:00: 00:00 mouth [place] disintegrat 00 :00 every 8 Medic al ing tablet (eight) Branch hours as needed for Nausea and Vomiting (N/V). ondansetron 2017-09- No 4mg Take 1 Uni vers (ZOFRAN 2-26 03- tablet by ity of ODT) 4 mg 00:00: 00:00 mouth [place] disintegrat 00 :00 every 8 Medic al ing tablet (eight) Branch hours as needed for Nausea and Vomiting (N/V). No known No Univers medications [facility] [place] [facility] No known No Univers medications [facility] [place] [facility] No known No Univers medications [facility] [place] [facility] No known No Univers medications [facility] [place] [facility] Immunizations Ordered Immunization Filled Immunization Date Status Commen ts Source Name Name SARS-COV-2 COVID-2022-07-17 Completed Unive rsity of MODERNA 12+ YRS 00:00:00 [facility] VACCINE Branch TDAP 2022-07-17 Completed University 00:00:00 [facility] SARS-COV-2 COVID-19 2022-07-17 Completed Unive rsity of MODERNA 12+ YRS 00:00:00 [facility] VACCINE Branch TDAP 2022-07-17 Completed University 00:00:00 [facility] SARS-COV-2 COVID-19 2022-07-17 Completed Unive rsity of MODERNA 12+ YRS 00:00:00 [facility] VACCINE Branch TDAP 2022-07-17 Completed University of 00:00:00 [facility] SARS-COV-2 COVID-19 2022-07-17 Completed Unive rsity of MODERNA 12+ YRS 00:00:00 [facility] ical VACCINE Branch TDAP 2022-07-17 Completed University of 00:00:00 [facility] SARS-COV-2 COVID-19 2022-07-17 Completed Unive rsity of MODERNA 12+ YRS 00:00:00 [facility] ical VACCINE Branch TDAP 2022-07-17 Completed University of 00:00:00 [facility] SARS-COV-2 COVID-19 2022-07-17 Completed Unive rsity of MODERNA 12+ YRS 00:00:[facility] 2022-07-17 Completed University of 00:00:00 [facility] SARS-COV-2 COVID-19 2022-07-17 Completed Unive rsity of MODERNA 12+ YRS 00:00:[facility] 2022-07-17 Completed University of 00:00:00 [facility] SARS-COV-2 COVID-19 2022-07-17 Completed Unive rsity of MODERNA 12+ YRS 00:00:00 [facility] VACCINE Branch TDAP 2022-07-17 Completed University of 00:00:00 [facility] SARS-COV-2 COVID-19 2022-07-17 Completed Unive rsity of MODERNA 12+ YRS 00:00:[facility] 2022-07-17 Completed University of 00:00:00 [facility] SARS-COV-2 COVID-19 2022-07-17 Completed Unive rsity of MODERNA 12+ YRS 00:00:[facility] 2022-07-17 Completed University of 00:00:00 [facility] SARS-COV-2 COVID-19 2022-07-17 Completed Unive rsity of MODERNA 12+ YRS 00:00:[facility] 2022-07-17 Completed University of 00:00:00 [facility] SARS-COV-2 COVID-19 2022-07-17 Completed Unive rsity of MODERNA 12+ YRS 00:00:00 [facility] ical VACCINE Branch TDAP 2022-07-17 Completed University of 00:00:00 [facility] SARS-COV-2 COVID-19 2022-07-17 Completed Unive rsity of MODERNA 12+ YRS 00:00:00 [facility] VACCINE Branch TDAP 2022-07-17 Completed University of 00:00:00 [facility] SARS-COV-2 COVID-19 2022-07-17 Completed Unive rsity of MODERNA 12+ YRS 00:00:00 [facility] VACCINE Branch TDAP 2022-07-17 Completed University of 00:00:00 [facility] Influenza Virus 2022-07-15 Completed Universit y of Vaccine Quad IM, 00:00:00 [place] Me dical Preserv and ABX Free Bran ch 6 MO-64 YRS Influenza Virus 2022-07-15 Completed Universit y of Vaccine Quad IM, 00:00:00 [place] Me dical Preserv and ABX Free Bran ch 6 MO-64 YRS Influenza Virus 2022-07-15 Completed Universit y of Vaccine [facility] IM, 00:00:00 [place] Me dical Preserv and ABX Free Bran ch 6 MO-64 YRS Influenza Virus 2022-07-15 Completed Universit y of Vaccine [facility], 00:00:00 [place] Me dical Preserv and ABX Free Bran ch 6 MO-64 YRS Influenza Virus 2022-07-15 Completed Universit y of Vaccine [facility] IM, 00:00:00 [place] Me dical Preserv and ABX Free Bran ch 6 MO-64 YRS Influenza Virus 2022-07-15 Completed Universit y of Vaccine [facility], 00:00:00 [place] Me dical Preserv and ABX Free Bran ch 6 MO-64 YRS Influenza Virus 2022-07-15 Completed Universit y of Vaccine Quad IM, 00:00:00 [place] Me dical Preserv and ABX Free Bran ch 6 MO-64 YRS Influenza Virus 2022-07-15 Completed Universit y of Vaccine [facility], 00:00:00 [place] Me dical Preserv and ABX Free Bran ch 6 MO-64 YRS Influenza Virus 2022-07-15 Completed Universit y of Vaccine [facility] IM, 00:00:00 [place] Me dical Preserv and ABX Free Bran ch 6 MO-64 YRS Influenza Virus 2022-07-15 Completed Universit y of Vaccine [facility] IM, 00:00:00 [place] Me dical Preserv and ABX Free Bran ch 6 MO-64 YRS Influenza Virus 2022-07-15 Completed Universit y of Vaccine [facility] IM, 00:00:00 [place] Me dical Preserv and ABX Free Bran ch 6 MO-64 YRS Influenza Virus 2022-07-15 Completed Universit y of Vaccine [facility], 00:00:00 [place] Me dical Preserv and ABX Free Bran ch 6 MO-64 YRS Influenza Virus 2022-07-15 Completed Universit y of Vaccine [facility] IM, 00:00:00 [place] Me dical Preserv and ABX Free Bran ch 6 MO-64 YRS Influenza Virus 2022-07-15 Completed Universit y of Vaccine [facility] IM, 00:00:00 [place] Me dical Preserv and ABX Free Bran ch 6 MO-64 YRS Influenza Virus 2022-07-15 Completed Universit y of Vaccine [facility], 00:00:00 [place] Me dical Preserv and ABX Free Bran ch 6 MO-64 YRS Influenza Virus 2022-07-15 Completed Universit y of Vaccine [facility], 00:00:00 [place] Me dical Preserv and ABX Free Bran ch 6 MO-64 YRS Influenza Virus 2022-07-15 Completed Universit y of Vaccine [facility], 00:00:00 [place] Me dical Preserv and ABX Free Bran ch 6 MO-64 YRS Influenza Virus 2022-07-15 Completed Universit y of Vaccine Quad IM, 00:00:00 [place] Me dical Preserv and ABX Free Bran ch 6 MO-64 YRS Influenza Virus 2022-07-15 Completed Universit y of Vaccine [facility] IM, 00:00:00 [place] Me dical Preserv and ABX Free Bran ch 6 MO-64 YRS Influenza Virus 2022-07-15 Completed Universit y of Vaccine [facility] IM, 00:00:00 [place] Me dical Preserv and ABX Free Bran ch 6 MO-64 YRS Meningococcal B, OMV 2019-04-07 Completed Univ ersity of 00:00:00 [facility] Meningococcal B, OMV 2019-04-07 Completed Univ ersity of 00:00:00 [facility] Meningococcal B, OMV 2019-04-07 Completed Univ ersity of 00:00:00 [facility] Meningococcal B, OMV 2019-04-07 Completed Univ ersity of 00:00:00 [place] [facility] Meningococcal B, OMV 2019-04-07 Completed Univ ersity of 00:00:00 [place] [facility] Meningococcal B, OMV 2019-04-07 Completed Univ ersity of 00:00:00 [place] [facility] Meningococcal B, OMV 2019-04-07 Completed Univ ersity of 00:00:00 [place] [facility] Meningococcal B, OMV 2019-04-07 Completed Univ ersity of 00:00:00 [place] [facility] Meningococcal B, OMV 2019-04-07 Completed Univ ersity of 00:00:00 [place] [facility] Meningococcal B, OMV 2019-04-07 Completed Univ ersity of 00:00:00 [place] [facility] Meningococcal B, OMV 2019-04-07 Completed Univ ersity of 00:00:00 [place] [facility] Meningococcal B, OMV 2019-04-07 Completed Univ ersity of 00:00:00 [place] [facility] Meningococcal B, OMV 2019-04-07 Completed Univ ersity of 00:00:00 [place] [facility] Meningococcal B, OMV 2019-04-07 Completed Univ ersity of 00:00:00 [place] [facility] Meningococcal B, OMV 2019-04-07 Completed Univ ersity of 00:00:00 [place] [facility] Meningococcal B, OMV 2019-04-07 Completed Univ ersity of 00:00:00 [place] [facility] Meningococcal B, OMV 2019-04-07 Completed Univ ersity of 00:00:00 [place] [facility] Meningococcal B, OMV 2019-04-07 Completed Univ ersity of 00:00:00 [place] [facility] Meningococcal B, OMV 2019-04-07 Completed Univ ersity of 00:00:00 [place] [facility] Meningococcal B, OMV 2019-04-07 Completed Univ ersity of 00:00:00 [place] [facility] Meningococcal B, OMV 2019-04-07 Completed Univ ersity of 00:00:00 [place] [facility] Meningococcal B, OMV 2019-04-07 Completed Univ ersity of 00:00:00 [place] [facility] Meningococcal B, OMV 2019-04-07 Completed Univ ersity of 00:00:00 [place] [facility] Meningococcal B, OMV 2019-04-07 Completed Univ ersity of 00:00:00 [place] [facility] Meningococcal B, OMV 2019-04-07 Completed Univ ersity of 00:00:00 [facility] Meningococcal B, OMV 2019-04-07 Completed Univ ersity of 00:00:00 [facility] Meningococcal 2018-04-08 Completed University of Polysaccharide [...] 2015-06-12 Completed Universit y of Vaccine 00:00:00 [facility] Influenza Virus 2015-06-12 Completed Universit y of Vaccine 00:00:00 [facility] Influenza Virus 2015-06-12 Completed Universit y of Vaccine 00:00:00 [facility] Influenza Virus 2015-06-12 Completed Universit y of Vaccine 00:00:00 [facility] Influenza Virus 2015-06-12 Completed Universit y of Vaccine 00:00:00 [facility] Influenza Virus 2015-06-12 Completed Universit y of Vaccine 00:00:00 [facility] Influenza Virus 2015-06-12 Completed Universit y of Vaccine 00:00:00 [facility] Influenza Virus 2015-06-12 Completed Universit y of Vaccine 00:00:00 [facility] Influenza Virus 2015-06-12 Completed Universit y of Vaccine 00:00:00 [facility] Influenza Virus 2015-06-12 Completed [facility] Vaccine 00:00:00 [facility] Influenza Virus 2015-06-12 Completed [facility] Vaccine 00:00:00 [facility] Influenza Virus 2015-06-12 Completed [facility] Vaccine 00:00:00 [facility] Influenza Virus 2015-06-12 Completed [facility] Vaccine 00:00:00 [facility] Influenza Virus 2015-06-12 Completed [facility] Vaccine 00:00:00 [facility] Influenza Virus 2015-06-12 Completed [facility] Vaccine 00:00:00 [facility] Influenza Virus 2015-06-12 Completed [facility] Vaccine 00:00:00 [facility] Influenza Virus 2015-06-12 Completed [facility] Vaccine 00:00:00 [facility] Influenza Virus 2015-06-12 Completed [facility] Vaccine 00:00:00 [facility] Influenza Virus 2015-06-12 Completed [facility] Vaccine 00:00:00 [facility] Influenza Virus 2015-06-12 Completed [facility] Vaccine 00:00:00 [facility] Influenza Virus 2015-06-12 Completed [facility] Vaccine 00:00:00 [facility] Influenza Virus 2015-06-12 Completed [facility] Vaccine 00:00:00 [facility] Influenza Virus 2015-06-12 Completed [facility] Vaccine 00:00:00 [facility] Influenza Virus 2015-06-12 Completed [facility] Vaccine 00:00:00 [facility] Influenza Virus 2015-06-12 Completed [facility] Vaccine 00:00:00 [facility] Influenza Virus 2015-06-12 Completed [facility] Vaccine 00:00:00 [facility] Influenza Virus 2015-06-12 Completed [facility] Vaccine 00:00:00 [facility] Influenza Virus 2013-07-28 Completed [facility] Vaccine 00:00:00 [facility] Influenza Virus 2013-07-28 Completed [facility] Vaccine 00:00:00 [facility] Influenza Virus 2013-07-28 Completed [facility] Vaccine 00:00:00 [facility] Influenza Virus 2013-07-28 Completed [facility] Vaccine 00:00:00 [facility] Influenza Virus 2013-07-28 Completed [facility] Vaccine 00:00:00 [facility] Influenza Virus 2013-07-28 Completed [facility] Vaccine 00:00:00 [facility] Influenza Virus 2013-07-28 Completed [facility] Vaccine 00:00:00 [facility] Influenza Virus 2013-07-28 Completed [facility] Vaccine 00:00:00 [facility] Influenza Virus 2013-07-28 Completed [facility] Vaccine 00:00:00 [facility] Influenza Virus 2013-07-28 Completed [facility] Vaccine 00:00:00 [facility] Influenza Virus 2013-07-28 Completed [facility] Vaccine 00:00:00 [facility] Influenza Virus 2013-07-28 Completed [facility] Vaccine 00:00:00 [facility] Influenza Virus 2013-07-28 Completed [facility] Vaccine 00:00:00 [facility] Influenza Virus 2013-07-28 Completed [facility] Vaccine 00:00:00 [facility] Influenza Virus 2013-07-28 Completed [facility] Vaccine 00:00:00 [facility] Influenza Virus 2013-07-28 Completed [facility] Vaccine 00:00:00 [facility] Influenza Virus 2013-07-28 Completed [facility] Vaccine 00:00:00 [facility] Influenza Virus 2013-07-28 Completed [facility] Vaccine 00:00:00 [facility] Influenza Virus 2013-07-28 Completed [facility] Vaccine 00:00:00 [facility] Influenza Virus 2013-07-28 Completed [facility] Vaccine 00:00:00 [facility] Influenza Virus 2013-07-28 Completed [facility] Vaccine 00:00:00 [facility] Influenza Virus 2013-07-28 Completed [facility] Vaccine 00:00:00 [facility] Influenza Virus 2013-07-28 Completed [facility] Vaccine 00:00:00 [facility] Influenza Virus 2013-07-28 Completed [facility] Vaccine 00:00:00 [facility] Influenza Virus 2013-07-28 Completed [facility] Vaccine 00:00:00 [facility] Influenza Virus 2013-07-28 Completed [facility] Vaccine 00:00:00 [facility] Influenza Virus 2013-07-28 Completed [facility] Vaccine 00:00:00 [facility] HPV 2013-05-17 Completed [facility] 00:00:[address] [facility] HPV 2013-05-17 Completed [facility] 00:00:[address] [facility] HPV 2013-05-17 Completed [facility] 00[facility]00:[address] [facility] HPV 2013-05-17 Completed [facility] 00:00:00 [facility] HPV 2013-05-17 Completed [facility] 00:00:[address] [facility] HPV 2013-05-17 Completed [facility] 00:00:[address] [facility] HPV 2013-05-17 Completed [facility] 00[facility]00:[address] [facility] HPV 2013-05-17 Completed [facility] 00:00:[address] [facility] HPV 2013-05-17 Completed [facility] 00[facility]00:[address] [facility] HPV 2013-05-17 Completed [facility] 00:00:[address] [facility] HPV 2013-05-17 Completed [facility] 00[facility]00:[address] [facility] HPV 2013-05-17 Completed [facility] 00:00:[address] [facility] HPV 2013-05-17 Completed [facility] 00:00:[address] [facility] HPV 2013-05-17 Completed [facility] 00:00:[address] [facility] HPV 2013-05-17 Completed [facility] of [...] Branch HPV 2013-05-17 Completed [facility] 00:00:00 [facility] HPV 2012-08-05 Completed [facility] 00:00:[address] [facility] Meningococcal Vaccine 2012-08-05 Completed Uni versity of 00:00:[address] [facility] TDAP (ADACEL) VACCINE 2012-08-05 Completed [facility] 00:00:00 [facility] HPV 2012-08-05 Completed [facility] 00:00:[address] [facility] Meningococcal Vaccine 2012-08-05 Completed [facility] vers[facility] of 00:00:[address] [facility] TDAP (ADACEL) VACCINE 2012-08-05 Completed [facility] vers[facility] of 00:00:[address] [facility] TDAP (ADACEL) VACCINE 2012-08-05 Completed [facility] 00:00:00 [facility] HPV 2012-08-05 Completed [facility] 00:00:[address] [facility] Meningococcal Vaccine 2012-08-05 Completed [facility] vers[facility] 00:00:00 [facility] TDAP (ADACEL) VACCINE 2012-08-05 Completed [facility] 00:00:00 [facility] TDAP (ADACEL) VACCINE 2012-08-05 Completed [facility] 00:00:00 [facility] HPV 2012-08-05 Completed [facility] 00:00:[address] [facility] Meningococcal Vaccine 2012-08-05 Completed [facility] vers[facility] of 00:00:00 [facility] TDAP (ADACEL) VACCINE 2012-08-05 Completed [facility] vers[facility] of 00:00:[address] [facility] HPV 2012-08-05 Completed [facility] 00:00:[address] [facility] Meningococcal Vaccine 2012-08-05 Completed [facility] 00:00:00 [facility] TDAP (ADACEL) VACCINE 2012-08-05 Completed [facility] vers[facility] 00:00:[address] [facility] HPV 2012-08-05 Completed [facility] 00:00:[address] [facility] Meningococcal Vaccine 2012-08-05 Completed [facility] vers[facility] of 00:00:[address] [facility] HPV 2012-08-05 Completed [facility] 00:00:[address] [facility] TDAP (ADACEL) VACCINE 2012-08-05 Completed [facility] vers[facility] 00:00:[address] [facility] HPV 2012-08-05 Completed [facility] 00:00:[address] [facility] Meningococcal Vaccine 2012-08-05 Completed [facility] vers[facility] 00:00:[address] [facility] TDAP (ADACEL) VACCINE 2012-08-05 Completed [facility] 00:00:[address] [facility] HPV 2012-08-05 Completed [facility] 00:00:[address] [facility] Meningococcal Vaccine 2012-08-05 Completed [facility] vers[facility] of 00:00:[address] [facility] Meningococcal Vaccine 2012-08-05 Completed [facility] vers[facility] of 00:00:[address] [facility] TDAP (ADACEL) VACCINE 2012-08-05 Completed [facility] vers[facility] 00:00:[address] [facility] HPV 2012-08-05 Completed [facility] 00:00:[address] [facility] Meningococcal Vaccine 2012-08-05 Completed [facility] vers[facility] of 00:00:[address] [facility] TDAP (ADACEL) VACCINE 2012-08-05 Completed [facility] 00:00:[address] [facility] HPV 2012-08-05 Completed [facility] 00:00:[address] [facility] Meningococcal Vaccine 2012-08-05 Completed [facility] vers[facility] 00:00:[address] [facility] TDAP (ADACEL) VACCINE 2012-08-05 Completed [facility] 00:00:[address] [facility] HPV 2012-08-05 Completed [facility] 00:00:[address] [facility] HPV 2012-08-05 Completed [facility] 00:00:[address] [facility] Meningococcal Vaccine 2012-08-05 Completed [facility] 00:00:00 [facility] TDAP (ADACEL) VACCINE 2012-08-05 Completed [facility] vers[facility] of 00:00:[address] [facility] HPV 2012-08-05 Completed [facility] 00:00:[address] [facility] Meningococcal Vaccine 2012-08-05 Completed [facility] 00:00:00 [facility] TDAP (ADACEL) VACCINE 2012-08-05 Completed [facility] 00:00:[address] [facility] Meningococcal Vaccine 2012-08-05 Completed [facility] vers[facility] 00:00:[address] [facility] HPV 2012-08-05 Completed [facility] 00:00:[address] [facility] Meningococcal Vaccine 2012-08-05 Completed [facility] vers[facility] 00:00:[address] [facility] TDAP (ADACEL) VACCINE 2012-08-05 Completed [facility] 00:00:[address] [facility] HPV 2012-08-05 Completed [facility] 00:00:[address] [facility] Meningococcal Vaccine 2012-08-05 Completed [facility] vers[facility] 00:00:[address] [facility] TDAP (ADACEL) VACCINE 2012-08-05 Completed [facility] 00:00:[address] [facility] HPV 2012-08-05 Completed [facility] 00:00:[address] [facility] Meningococcal Vaccine 2012-08-05 Completed [facility] vers[facility] 00:00:[address] [facility] TDAP (ADACEL) VACCINE 2012-08-05 Completed [facility] 00:00:[address] [facility] HPV 2012-08-05 Completed [facility] 00:00:[address] [facility] Meningococcal Vaccine 2012-08-05 Completed [facility] vers[facility] 00:00:[address] [facility] TDAP (ADACEL) VACCINE 2012-08-05 Completed [facility] 00:00:[address] [facility] HPV 2012-08-05 Completed [facility] 00:00:[address] [facility] Meningococcal Vaccine 2012-08-05 Completed [facility] vers[facility] 00:00:[address] [facility] TDAP (ADACEL) VACCINE 2012-08-05 Completed [facility] 00:00:00 [facility] TDAP (ADACEL) VACCINE 2012-08-05 Completed [facility] 00:00:[address] [facility] HPV 2012-08-05 Completed [facility] 00:00:[address] [facility] Meningococcal Vaccine 2012-08-05 Completed [facility] vers[facility] 00:00:00 [facility] TDAP (ADACEL) VACCINE 2012-08-05 Completed [facility] 00:00:[address] [facility] HPV 2012-08-05 Completed [facility] 00:00:00 [facility] Meningococcal Vaccine 2012-08-05 Completed [facility] vers[facility] 00:00:00 [facility] TDAP (ADACEL) VACCINE 2012-08-05 Completed [facility] 00:00:[address] [facility] HPV 2012-08-05 Completed [facility] 00:00:00 [facility] HPV 2012-08-05 Completed [facility] 00:00:[address] [facility] Meningococcal Vaccine 2012-08-05 Completed [facility] vers[facility] 00:00:[address] [facility] TDAP (ADACEL) VACCINE 2012-08-05 Completed [facility] 00:00:[address] [facility] HPV 2012-08-05 Completed [facility] 00:00:[address] [facility] Meningococcal Vaccine 2012-08-05 Completed [facility] 00:00:[address] [facility] TDAP (ADACEL) VACCINE 2012-08-05 Completed [facility] 00:00:[address] [facility] Meningococcal Vaccine 2012-08-05 Completed [facility] 00:00:00 [facility] HPV 2012-08-05 Completed [facility] 00:00:00 [facility] Meningococcal Vaccine 2012-08-05 Completed [facility] vers[facility] 00:00:[address] [facility] TDAP (ADACEL) VACCINE 2012-08-05 Completed [facility] 00:00:[address] [facility] HPV 2012-08-05 Completed [facility] 00:00:[address] [facility] Meningococcal Vaccine 2012-08-05 Completed [facility] 00:00:[address] [facility] TDAP (ADACEL) VACCINE 2012-08-05 Completed [facility] 00:00:00 [facility] HPV 2012-08-05 Completed [facility] 00:00:00 [facility] Meningococcal Vaccine 2012-08-05 Completed [facility] 00:00:[address] [facility] TDAP (ADACEL) VACCINE 2012-08-05 Completed [facility] 00:00:00 [facility] Influenza Virus 2012-06-23 Completed [facility] Vaccine 00:00:00 [facility] Influenza Virus 2012-06-23 Completed [facility] Vaccine 00:00:00 [facility] Influenza Virus 2012-06-23 Completed [facility] Vaccine 00:00:00 [facility] Influenza Virus 2012-06-23 Completed [facility] Vaccine 00:00:00 [facility] Influenza Virus 2012-06-23 Completed [facility] Vaccine 00:00:00 [facility] Influenza Virus 2012-06-23 Completed [facility] Vaccine 00:00:00 [facility] Influenza Virus 2012-06-23 Completed [facility] Vaccine 00:00:00 [facility] Influenza Virus 2012-06-23 Completed [facility] Vaccine 00:00:00 [facility] Influenza Virus 2012-06-23 Completed [facility] Vaccine 00:00:00 [facility] Influenza Virus 2012-06-23 Completed [facility] Vaccine 00:00:00 [facility] Influenza Virus 2012-06-23 Completed [facility] Vaccine 00:00:00 [facility] Influenza Virus 2012-06-23 Completed [facility] Vaccine 00:00:00 [facility] Influenza Virus 2012-06-23 Completed [facility] Vaccine 00:00:00 [facility] Influenza Virus 2012-06-23 Completed [facility] Vaccine 00:00:00 [facility] Influenza Virus 2012-06-23 Completed [facility] Vaccine 00:00:00 [facility] Influenza Virus 2012-06-23 Completed [facility] Vaccine 00:00:00 [facility] Influenza Virus 2012-06-23 Completed [facility] Vaccine 00:00:00 [facility] Influenza Virus 2012-06-23 Completed [facility] Vaccine 00:00:00 [facility] Influenza Virus 2012-06-23 Completed [facility] Vaccine 00:00:00 [facility] Influenza Virus 2012-06-23 Completed [facility] Vaccine 00:00:00 [facility] Influenza Virus 2012-06-23 Completed [facility] Vaccine 00:00:00 [facility] Influenza Virus 2012-06-23 Completed [facility] Vaccine 00:00:00 [facility] Influenza Virus 2012-06-23 Completed [facility] Vaccine 00:00:00 [facility] Influenza Virus 2012-06-23 Completed [facility] Vaccine 00:00:00 [facility] Influenza Virus 2012-06-23 Completed [facility] Vaccine 00:00:00 [facility] Influenza Virus 2012-06-23 Completed [facility] Vaccine 00:00:00 [facility] Influenza Virus 2012-06-23 Completed [facility] Vaccine 00:00:00 [facility] HPV 2011-09-23 Completed [facility] 00:00:00 [facility] HPV 2011-09-23 Completed [facility] 00:00:00 [facility] HPV 2011-09-23 Completed [facility] 00:00:00 [facility] HPV 2011-09-23 Completed [facility] 00:00:00 [facility] HPV 2011-09-23 Completed [facility] 00:00:00 [facility] HPV 2011-09-23 Completed [facility] 00:00:00 [facility] HPV 2011-09-23 Completed [facility] 00:00:00 [facility] HPV 2011-09-23 Completed [facility] 00:00:00 [facility] HPV 2011-09-23 Completed [facility] 00:00:00 [facility] HPV 2011-09-23 Completed [facility] 00:00:00 [facility] HPV 2011-09-23 Completed [facility] 00:00:00 [facility] HPV 2011-09-23 Completed [facility] 00:00:00 [facility] HPV 2011-09-23 Completed [facility] 00:00:[address] [facility] HPV 2011-09-23 Completed [facility] 00:00:[address] [facility] HPV 2011-09-23 Completed [facility] 00:00:00 [facility] HPV 2011-09-23 Completed [facility] 00:00:00 [facility] HPV 2011-09-23 Completed [facility] 00:00:00 [facility] HPV 2011-09-23 Completed [facility] 00:00:00 [facility] HPV 2011-09-23 Completed [facility] 00:00:00 [facility] HPV 2011-09-23 Completed [facility] 00:00:[address] [facility] HPV 2011-09-23 Completed [facility] 00:00:[address] [facility] HPV 2011-09-23 Completed [facility] 00:00:00 [facility] HPV 2011-09-23 Completed [facility] 00:00:00 [facility] HPV 2011-09-23 Completed [facility] 00:00:[address] [facility] HPV 2011-09-23 Completed [facility] 00:00:[address] [facility] HPV 2011-09-23 Completed [facility] 00[facility]00:[address] [facility] HPV 2011-09-23 Completed [facility] 00:00:00 [facility] Influenza Virus 2011-08-27 Completed [facility] Vaccine 00:00:00 [facility] Influenza Virus 2011-08-27 Completed [facility] Vaccine 00:00:00 [facility] Influenza Virus 2011-08-27 Completed [facility] Vaccine 00:00:00 [facility] Influenza Virus 2011-08-27 Completed [facility] Vaccine 00:00:00 [facility] Influenza Virus 2011-08-27 Completed [facility] Vaccine 00:00:[address] [facility] Influenza Virus 2011-08-27 Completed [facility] Vaccine 00:00:[address] [facility] Influenza Virus 2011-08-27 Completed [facility] Vaccine 00:00:00 [facility] Influenza Virus 2011-08-27 Completed [facility] Vaccine 00:00:00 [facility] Influenza Virus 2011-08-27 Completed [facility] Vaccine 00:00:[address] [facility] Influenza Virus 2011-08-27 Completed [facility] Vaccine 00:00:00 [facility] Influenza Virus 2011-08-27 Completed [facility] Vaccine 00:00:00 [facility] Influenza Virus 2011-08-27 Completed [facility] Vaccine 00:00:00 [facility] Influenza Virus 2011-08-27 Completed [facility] Vaccine 00:00:00 [facility] Influenza Virus 2011-08-27 Completed [facility] Vaccine 00:00:00 [facility] Influenza Virus 2011-08-27 Completed [facility] Vaccine 00:00:00 [facility] Influenza Virus 2011-08-27 Completed [facility] Vaccine 00:00:00 [facility] Influenza Virus 2011-08-27 Completed [facility] Vaccine 00:00:00 [facility] Influenza Virus 2011-08-27 Completed [facility] Vaccine 00:00:00 [facility] Influenza Virus 2011-08-27 Completed [facility] Vaccine 00:00:00 [facility] Influenza Virus 2011-08-27 Completed [facility] Vaccine 00:00:00 [facility] Influenza Virus 2011-08-27 Completed [facility] Vaccine 00:00:[address] [facility] Influenza Virus 2011-08-27 Completed [facility] Vaccine 00:00:00 [facility] Influenza Virus 2011-08-27 Completed [facility] Vaccine 00:00:[address] [facility] Influenza Virus 2011-08-27 Completed [facility] Vaccine 00:00:[address] [facility] Influenza Virus 2011-08-27 Completed [facility] Vaccine 00:00:00 [facility] Influenza Virus 2011-08-27 Completed [facility] Vaccine 00:00:00 [facility] Influenza Virus 2011-08-27 Completed [facility] Vaccine 00:00:00 [facility] Influenza Virus 2010-05-25 Completed [facility] Vaccine 00:00:00 [facility] Influenza Virus 2010-05-25 Completed [facility] Vaccine 00:00:00 [facility] Influenza Virus 2010-05-25 Completed [facility] Vaccine 00:00:00 [facility] Influenza Virus 2010-05-25 Completed [facility] Vaccine 00:00:00 [facility] Influenza Virus 2010-05-25 Completed [facility] Vaccine 00:00:00 [facility] Influenza Virus 2010-05-25 Completed [facility] Vaccine 00:00:00 [facility] Influenza Virus 2010-05-25 Completed [facility] Vaccine 00:00:00 [facility] Influenza Virus 2010-05-25 Completed [facility] Vaccine 00:00:00 [facility] Influenza Virus 2010-05-25 Completed [facility] Vaccine 00:00:00 [facility] Influenza Virus 2010-05-25 Completed [facility] Vaccine 00:00:00 [facility] Influenza Virus 2010-05-25 Completed [facility] Vaccine 00:00:00 [facility] Influenza Virus 2010-05-25 Completed [facility] Vaccine 00:00:00 [facility] Influenza Virus 2010-05-25 Completed [facility] Vaccine 00:00:00 [facility] Influenza Virus 2010-05-25 Completed [facility] Vaccine 00:00:00 [facility] Influenza Virus 2010-05-25 Completed [facility] Vaccine 00:00:00 [facility] Influenza Virus 2010-05-25 Completed [facility] Vaccine 00:00:00 [facility] Influenza Virus 2010-05-25 Completed [facility] Vaccine 00:00:00 [facility] Influenza Virus 2010-05-25 Completed [facility] Vaccine 00:00:00 [facility] Influenza Virus 2010-05-25 Completed [facility] Vaccine 00:00:00 [facility] Influenza Virus 2010-05-25 Completed [facility] Vaccine 00:00:00 [facility] Influenza Virus 2010-05-25 Completed [facility] Vaccine 00:00:00 [facility] Influenza Virus 2010-05-25 Completed [facility] Vaccine 00[facility]00:00 [facility] Influenza Virus 2010-05-25 Completed [facility] Vaccine 00:00:00 [facility] Influenza Virus 2010-05-25 Completed [facility] Vaccine 00[facility]00:[address] [facility] Influenza Virus 2010-05-25 Completed [facility] Vaccine 00:00:00 [facility] Influenza Virus 2010-05-25 Completed [facility] Vaccine 00:00:00 [facility] Influenza Virus 2010-05-25 Completed [facility] Vaccine 00:00:00 [facility] H1n1 Vaccine 2009-08-10 Completed [facility] 00:00:00 [facility] H1n1 Vaccine 2009-08-10 Completed [facility] 00:00:00 [facility] H1n1 Vaccine 2009-08-10 Completed [facility] 00:00:00 [facility] H1n1 Vaccine 2009-08-10 Completed [facility] 00:00:00 [facility] H1n1 Vaccine 2009-08-10 Completed [facility] 00:00:00 [facility] H1n1 Vaccine 2009-08-10 Completed [facility] 00:00:00 [facility] H1n1 Vaccine 2009-08-10 Completed [facility] 00:00:00 [facility] H1n1 Vaccine 2009-08-10 Completed [facility] 00:00:00 [facility] H1n1 Vaccine 2009-08-10 Completed [facility] 00:00:00 [facility] H1n1 Vaccine 2009-08-10 Completed [facility] 00:00:00 [facility] H1n1 Vaccine 2009-08-10 Completed [facility] 00:00:00 [facility] H1n1 Vaccine 2009-08-10 Completed [facility] 00:00:00 [facility] H1n1 Vaccine 2009-08-10 Completed [facility] 00:00:00 [facility] H1n1 Vaccine 2009-08-10 Completed [facility] 00:00:00 [facility] H1n1 Vaccine 2009-08-10 Completed [facility] 00:00:00 [facility] H1n1 Vaccine 2009-08-10 Completed [facility] 00:00:00 [facility] H1n1 Vaccine 2009-08-10 Completed [facility] 00:00:00 [facility] H1n1 Vaccine 2009-08-10 Completed [facility] 00:00:00 [facility] H1n1 Vaccine 2009-08-10 Completed [facility] 00:00:00 [facility] H1n1 Vaccine 2009-08-10 Completed [facility] 00:00:00 [facility] H1n1 Vaccine 2009-08-10 Completed [facility] 00:00:00 [facility] H1n1 Vaccine 2009-08-10 Completed [facility] 00:00:00 [facility] H1n1 Vaccine 2009-08-10 Completed [facility] 00:00:00 [facility] H1n1 Vaccine 2009-08-10 Completed [facility] 00:00:00 [facility] H1n1 Vaccine 2009-08-10 Completed [facility] f 00:00:[address] [facility] H1n1 Vaccine 2009-08-10 Completed [facility] f 00:00:[address] [facility] H1n1 Vaccine 2009-08-10 Completed [facility] 00:00:00 [facility] Influenza Virus 2008-06-27 Completed [facility] Vaccine 00:00:00 [facility] Influenza Virus 2008-06-27 Completed [facility] Vaccine 00:00:00 [facility] Influenza Virus 2008-06-27 Completed [facility] Vaccine 00:00:00 [facility] Influenza Virus 2008-06-27 Completed [facility] Vaccine 00:00:00 [facility] Influenza Virus 2008-06-27 Completed [facility] Vaccine 00:00:00 [facility] Influenza Virus 2008-06-27 Completed [facility] Vaccine 00:00:00 [facility] Influenza Virus 2008-06-27 Completed [facility] Vaccine 00:00:00 [facility] Influenza Virus 2008-06-27 Completed [facility] Vaccine 00:00:00 [facility] Influenza Virus 2008-06-27 Completed [facility] Vaccine 00:00:00 [facility] Influenza Virus 2008-06-27 Completed [facility] Vaccine 00:00:00 [facility] Influenza Virus 2008-06-27 Completed [facility] Vaccine 00:00:00 [facility] Influenza Virus 2008-06-27 Completed [facility] Vaccine 00:00:00 [facility] Influenza Virus 2008-06-27 Completed [facility] Vaccine 00:00:00 [facility] Influenza Virus 2008-06-27 Completed [facility] Vaccine 00:00:00 [facility] Influenza Virus 2008-06-27 Completed [facility] Vaccine 00:00:00 [facility] Influenza Virus 2008-06-27 Completed [facility] Vaccine 00:00:00 [facility] Influenza Virus 2008-06-27 Completed [facility] Vaccine 00:00:00 [facility] Influenza Virus 2008-06-27 Completed [facility] Vaccine 00:00:00 [facility] Influenza Virus 2008-06-27 Completed [facility] Vaccine 00:00:00 [facility] Influenza Virus 2008-06-27 Completed [facility] Vaccine 00:00:00 [facility] Influenza Virus 2008-06-27 Completed [facility] Vaccine 00:00:00 [facility] Influenza Virus 2008-06-27 Completed [facility] Vaccine 00:00:00 [facility] Influenza Virus 2008-06-27 Completed [facility] Vaccine 00:00:00 [facility] Influenza Virus 2008-06-27 Completed [facility] Vaccine 00:00:00 [facility] Influenza Virus 2008-06-27 Completed [facility] Vaccine 00:00:00 [facility] Influenza Virus 2008-06-27 Completed [facility] Vaccine 00:00:00 [facility] Influenza Virus 2008-06-27 Completed [facility] Vaccine 00:00:00 [facility] Influenza Virus 2007-09-29 Completed [facility] Vaccine 00:00:00 [facility] Influenza Virus 2007-09-29 Completed [facility] Vaccine 00:00:00 [facility] Influenza Virus 2007-09-29 Completed [facility] Vaccine 00:00:00 [facility] Influenza Virus 2007-09-29 Completed [facility] Vaccine 00:00:00 [facility] Influenza Virus 2007-09-29 Completed [facility] Vaccine 00:00:00 [facility] Influenza Virus 2007-09-29 Completed [facility] Vaccine 00:00:00 [facility] Influenza Virus 2007-09-29 Completed [facility] Vaccine 00:00:00 [facility] Influenza Virus 2007-09-29 Completed [facility] Vaccine 00:00:00 [facility] Influenza Virus 2007-09-29 Completed [facility] Vaccine 00:00:00 [facility] Influenza Virus 2007-09-29 Completed [facility] Vaccine 00:00:00 [facility] Influenza Virus 2007-09-29 Completed [facility] Vaccine 00:00:00 [facility] Influenza Virus 2007-09-29 Completed [facility] Vaccine 00:00:00 [facility] Influenza Virus 2007-09-29 Completed [facility] Vaccine 00:00:00 [facility] Influenza Virus 2007-09-29 Completed [facility] Vaccine 00:00:00 [facility] Influenza Virus 2007-09-29 Completed [facility] Vaccine 00:00:00 [facility] Influenza Virus 2007-09-29 Completed [facility] Vaccine 00:00:00 [facility] Influenza Virus 2007-09-29 Completed [facility] Vaccine 00:00:00 [facility] Influenza Virus 2007-09-29 Completed [facility] Vaccine 00:00:00 [facility] Influenza Virus 2007-09-29 Completed [facility] Vaccine 00:00:00 [facility] Influenza Virus 2007-09-29 Completed [facility] Vaccine 00:00:00 [facility] Influenza Virus 2007-09-29 Completed [facility] Vaccine 00:00:00 [facility] Influenza Virus 2007-09-29 Completed [facility] Vaccine 00:00:00 [facility] Influenza Virus 2007-09-29 Completed [facility] Vaccine 00:00:00 [facility] Influenza Virus 2007-09-29 Completed [facility] Vaccine 00:00:00 [facility] Influenza Virus 2007-09-29 Completed [facility] Vaccine 00:00:00 [facility] Influenza Virus 2007-09-29 Completed [facility] Vaccine 00:00:00 [facility] Influenza Virus 2007-09-29 Completed [facility] Vaccine 00:00:00 [facility] Varicella 2006-09-29 Completed [facility] of (varivax)(chicken [...] HEPATITIS A 2005-12-17 Completed [facility] of 00:00:00 [facility] HEPATITIS A 2005-12-17 Completed [facility] 00:00:00 [facility] HEPATITIS A 2005-12-17 Completed [facility] 00:00:00 [facility] HEPATITIS A 2005-12-17 Completed [facility] 00:00:00 [facility] HEPATITIS A 2005-12-17 Completed [facility] 00:00:00 [facility] HEPATITIS A 2005-12-17 Completed [facility] 00:00:00 [facility] HEPATITIS A 2005-12-17 Completed [facility] 00:00:00 [facility] HEPATITIS A 2005-12-17 Completed [facility] 00:00:00 [facility] HEPATITIS A 2005-12-17 Completed [facility] 00:00:00 [facility] HEPATITIS A 2005-12-17 Completed [facility] 00:00:00 [facility] HEPATITIS A 2005-12-17 Completed [facility] 00:00:00 [facility] HEPATITIS A 2005-12-17 Completed [facility] 00:00:00 [facility] HEPATITIS A 2005-12-17 Completed [facility] 00:00:00 [facility] HEPATITIS A 2005-12-17 Completed [facility] 00:00:00 [facility] HEPATITIS A 2005-12-17 Completed [facility] 00:00:00 [facility] HEPATITIS A 2005-12-17 Completed [facility] 00:00:00 [facility] HEPATITIS A 2005-12-17 Completed [facility] 00:00:00 [facility] HEPATITIS A 2005-12-17 Completed [facility] 00:00:00 [facility] HEPATITIS A 2005-12-17 Completed [facility] 00:00:00 [facility] HEPATITIS A 2005-12-17 Completed [facility] 00:00:00 [facility] HEPATITIS A 2005-12-17 Completed [facility] 00:00:00 [facility] HEPATITIS A 2005-12-17 Completed [facility] 00:00:00 [facility] HEPATITIS A 2005-12-17 Completed [facility] 00:00:00 [facility] HEPATITIS A 2005-12-17 Completed [facility] 00:00:00 [facility] HEPATITIS A 2005-12-17 Completed [facility] 00:00:00 [facility] HEPATITIS A 2005-12-17 Completed [facility] 00:00:00 [facility] HEPATITIS A 2005-12-17 Completed [facility] 00:00:00 [facility] MMR 2005-04-11 Completed [facility] 00:00:00 [facility] Polio (IPV/OPV) 2005-04-11 Completed [facility] 00:00:00 [facility] DTAP 2005-04-11 Completed [facility] 00:00:00 [facility] DTAP 2005-04-11 Completed [facility] 00:00:00 [facility] HEPATITIS A 2005-04-11 Completed [facility] 00:00:00 [facility] MMR 2005-04-11 Completed [facility] 00:00:00 [facility] Polio (IPV/OPV) 2005-04-11 Completed [facility] 00:00:00 [facility] DTAP 2005-04-11 Completed [facility] 00:00:00 [facility] DTAP 2005-04-11 Completed [facility] 00:00:00 [facility] HEPATITIS A 2005-04-11 Completed [facility] 00:00:00 [facility] MMR 2005-04-11 Completed [facility] 00:00:00 [facility] Polio (IPV/OPV) 2005-04-11 Completed [facility] 00:00:00 [facility] HEPATITIS A 2005-04-11 Completed University [...] (IPV/OPV) 2005-04-11 Completed [facility] 00:00:00 [facility] DTAP 2005-04-11 Completed [facility] 00:00:00 [facility] HEPATITIS A 2005-04-11 Completed [facility] 00:00:00 [facility] MMR 2005-04-11 Completed [facility] 00:00:00 [facility] Polio (IPV/OPV) 2005-04-11 Completed [facility] 00:00:00 [facility] MMR 2005-04-11 Completed [facility] 00:00:00 [facility] Polio (IPV/OPV) 2005-04-11 Completed [facility] 00:00:00 [facility] DTAP 2005-04-11 Completed [facility] 00:00:00 [facility] DTAP 2005-04-11 Completed [facility] 00:00:00 [facility] HEPATITIS A 2005-04-11 Completed [facility] 00:00:00 [facility] MMR 2005-04-11 Completed [facility] 00:00:00 [facility] Polio (IPV/OPV) 2005-04-11 Completed [facility] 00:00:00 [facility] HEPATITIS A 2005-04-11 Completed [facility] 00:00:00 [facility] DTAP 2005-04-11 Completed [facility] 00:00:00 [facility] HEPATITIS A 2005-04-11 Completed [facility] 00:00:00 [facility] MMR 2005-04-11 Completed [facility] 00:00:00 [facility] Polio (IPV/OPV) 2005-04-11 Completed [facility] 00:00:00 [facility] DTAP 2005-04-11 Completed [facility] 00:00:00 [facility] HEPATITIS A 2005-04-11 Completed [facility] 00:00:00 [facility] MMR 2005-04-11 Completed [facility] 00:00:00 [facility] Polio (IPV/OPV) 2005-04-11 Completed [facility] 00:00:00 [facility] DTAP 2005-04-11 Completed [facility] 00:00:00 [facility] HEPATITIS A 2005-04-11 Completed [facility] 00:00:00 [facility] MMR 2005-04-11 Completed [facility] 00:00:00 [facility] Polio (IPV/OPV) 2005-04-11 Completed [facility] 00:00:00 [facility] DTAP 2005-04-11 Completed [facility] 00:00:00 [facility] HEPATITIS A 2005-04-11 Completed [facility] 00:00:00 [facility] MMR 2005-04-11 Completed [facility] 00:00:00 [facility] MMR 2005-04-11 Completed [facility] 00:00:00 [facility] Polio (IPV/OPV) 2005-04-11 Completed [facility] 00:00:00 [facility] DTAP 2005-04-11 Completed [facility] 00:00:00 [facility] Polio (IPV/OPV) 2005-04-11 Completed [facility] 00:00:00 [facility] HEPATITIS A 2005-04-11 Completed [facility] 00:00:00 [facility] MMR 2005-04-11 Completed [facility] 00:00:00 [facility] Polio (IPV/OPV) 2005-04-11 Completed [facility] 00:00:00 [facility] DTAP 2005-04-11 Completed [facility] 00:00:[address] [facility] HEPATITIS A 2005-04-11 Completed [facility] 00:00:00 [facility] MMR 2005-04-11 Completed [facility] 00:00:00 [facility] Polio (IPV/OPV) 2005-04-11 Completed [facility] 00:00:00 [facility] DTAP 2005-04-11 Completed [facility] 00:00:00 [facility] HEPATITIS A 2005-04-11 Completed [facility] 00:00:00 [facility] MMR 2005-04-11 Completed [facility] 00:00:00 [facility] Polio (IPV/OPV) 2005-04-11 Completed [facility] 00:00:00 [facility] DTAP 2005-04-11 Completed [facility] 00:00:[address] [facility] HEPATITIS A 2005-04-11 Completed [facility] of 00:00:00 [facility] MMR 2005-04-11 Completed [facility] 00:00:00 [facility] Polio (IPV/OPV) 2005-04-11 Completed [facility] 00:00:00 [facility] DTAP 2005-04-11 Completed [facility] 00:00:00 [facility] HEPATITIS A 2005-04-11 Completed [facility] 00:00:00 [facility] DTAP 2005-04-11 Completed [facility] 00:00:00 [facility] MMR 2005-04-11 Completed [facility] 00:00:00 [facility] Polio (IPV/OPV) 2005-04-11 Completed [facility] 00:00:00 [facility] DTAP 2005-04-11 Completed [facility] 00:00:00 [facility] HEPATITIS A 2005-04-11 Completed [facility] 00:00:00 [facility] HEPATITIS A 2005-04-11 Completed [facility] 00:00:00 [facility] MMR 2005-04-11 Completed [facility] 00:00:00 [facility] Polio (IPV/OPV) 2005-04-11 Completed [facility] 00:00:00 [facility] DTAP 2005-04-11 Completed [facility] 00:00:00 [facility] HEPATITIS A 2005-04-11 Completed [facility] 00:00:00 [facility] MMR 2005-04-11 Completed [facility] 00:00:00 [facility] Polio (IPV/OPV) 2005-04-11 Completed [facility] 00:00:00 [facility] DTAP 2005-04-11 Completed [facility] 00:00:[address] [facility] HEPATITIS A 2005-04-11 Completed [facility] 00:00:00 [facility] MMR 2005-04-11 Completed [facility] 00:00:00 [facility] Polio (IPV/OPV) 2005-04-11 Completed [facility] 00:00:00 [facility] DTAP 2005-04-11 Completed [facility] 00:00:00 [facility] HEPATITIS A 2005-04-11 Completed [facility] 00:00:00 [facility] MMR 2005-04-11 Completed [facility] 00:00:00 [facility] Polio (IPV/OPV) 2005-04-11 Completed [facility] 00:00:00 [facility] MMR 2005-04-11 Completed [facility] 00:00:00 [facility] DTAP 2005-04-11 Completed [facility] of 00:00:[address] [facility] HEPATITIS A 2005-04-11 Completed [facility] 00:00:00 [facility] Polio (IPV/OPV) 2005-04-11 Completed [facility] 00:00:00 [facility] MMR 2005-04-11 Completed [facility] 00:00:00 [facility] Polio (IPV/OPV) 2005-04-11 Completed [facility] 00:00:00 [facility] DTAP 2005-04-11 Completed [facility] 00:00:00 [facility] HEPATITIS A 2005-04-11 Completed [facility] 00:00:00 [facility] MMR 2005-04-11 Completed [facility] 00:00:00 [facility] Polio (IPV/OPV) 2005-04-11 Completed [facility] 00:00:00 [facility] DTAP 2005-04-11 Completed [facility] 00:00:00 [facility] HEPATITIS A 2005-04-11 Completed [facility] 00:00:00 [facility] Pneumococcal 7 2003-07-21 Completed [facility] [...] PCV7 00:00:00 [facility] HIB 4 Dose Schedule 2002-05-20 Completed Unive rsity of 00:00:00 [facility] DTAP 2002-05-20 Completed [facility] 00:00:00 [facility] HIB 4 Dose Schedule 2002-05-20 Completed Unive rsity of 00:00:00 [facility] DTAP 2002-05-20 Completed [facility] 00:00:00 [facility] HIB 4 Dose Schedule 2002-05-20 Completed Unive rsity of 00:00:00 [facility] DTAP 2002-05-20 Completed [facility] 00:00:00 [facility] HIB 4 Dose Schedule 2002-05-20 Completed [facility]ive rsity of 00:00:00 [facility] DTAP 2002-05-20 Completed [facility] 00:00:00 [facility] HIB 4 Dose Schedule 2002-05-20 Completed Unive rsity of 00:00:00 [facility] DTAP 2002-05-20 Completed [facility] 00:00:00 [facility] HIB 4 Dose Schedule 2002-05-20 Completed Unive rsity of 00:00:00 [facility] DTAP 2002-05-20 Completed [facility] 00:00:00 [facility] HIB 4 Dose Schedule 2002-05-20 Completed [facility]ive rsity of 00:00:00 [facility] DTAP 2002-05-20 Completed [facility] 00:00:00 [facility] DTAP 2002-05-20 Completed [facility] 00:00:00 [facility] HIB 4 Dose Schedule 2002-05-20 Completed Unive rsity of 00:00:00 [facility] HIB 4 Dose Schedule 2002-05-20 Completed Unive rsity of 00:00:00 [facility] DTAP 2002-05-20 Completed [facility] 00:00:00 [facility] HIB 4 Dose Schedule 2002-05-20 Completed [facility]ive rsity of 00:00:00 [facility] DTAP 2002-05-20 Completed [facility] 00:00:00 [facility] HIB 4 Dose Schedule 2002-05-20 Completed Unive rsity of 00:00:00 [facility] DTAP 2002-05-20 Completed [facility] 00:00:00 [facility] HIB 4 Dose Schedule 2002-05-20 Completed [facility]ive rsity of 00:00:00 [facility] DTAP 2002-05-20 Completed [facility] 00:00:00 [facility] DTAP 2002-05-20 Completed [facility] 00:00:00 [facility] HIB 4 Dose Schedule 2002-05-20 Completed Unive rsity of 00:00:00 [facility] HIB 4 Dose Schedule 2002-05-20 Completed Unive rsity of 00:00:00 [facility] DTAP 2002-05-20 Completed [facility] 00:00:00 [facility] HIB 4 Dose Schedule 2002-05-20 Completed [facility]ive rsity of 00:00:00 [facility] DTAP 2002-05-20 Completed [facility] 00:00:00 [facility] HIB 4 Dose Schedule 2002-05-20 Completed [facility]ive rsity of 00:00:00 [facility] DTAP 2002-05-20 Completed [facility] 00:00:00 [facility] HIB 4 Dose Schedule 2002-05-20 Completed [facility]ive rsity of 00:00:00 [facility] DTAP 2002-05-20 Completed [facility] 00:00:00 [facility] HIB 4 Dose Schedule 2002-05-20 Completed [facility]ive rsity of 00:00:00 [facility] DTAP 2002-05-20 Completed [facility] 00:00:00 [facility] HIB 4 Dose Schedule 2002-05-20 Completed [facility]ive rs[facility] of 00:00:00 [facility] DTAP 2002-05-20 Completed [facility] 00:00:[address] [facility] HIB 4 Dose Schedule 2002-05-20 Completed [facility]ive rsity of 00:00:00 [facility] DTAP 2002-05-20 Completed [facility] of 00:00:[address] [facility] HIB 4 Dose Schedule 2002-05-20 Completed [facility]ive rs[facility] of 00:00:00 [facility] DTAP 2002-05-20 Completed [facility] 00:00:00 [facility] [place] HIB 4 Dose Schedule 2002-05-20 Completed [facility]ive rs[facility] of 00:00:00 [facility] DTAP 2002-05-20 Completed [facility] 00:00:00 [facility] DTAP 2002-05-20 Completed [facility] 00:00:00 [facility] HIB 4 Dose Schedule 2002-05-20 Completed [facility] rs[facility] of 00:00:00 [facility] HIB 4 Dose Schedule 2002-05-20 Completed [facility]ive rs[facility] of 00:00:00 [facility] DTAP 2002-05-20 Completed [facility] 00:00:00 [facility] HIB 4 Dose Schedule 2002-05-20 Completed [facility] rs[facility] of 00:00:00 [facility] DTAP 2002-05-20 Completed [facility] 00:00:00 [facility] HIB 4 Dose Schedule 2002-05-20 Completed [facility]ive rs[facility] of 00:00:00 [facility] DTAP 2002-05-20 Completed [facility] 00:00:[address] [facility] HIB 4 Dose Schedule 2002-05-20 Completed [facility]ive rs[facility] of 00:00:00 [facility] DTAP 2002-05-20 Completed [facility] 00:00:00 [facility] MMR 2002-02-22 Completed [facility] 00:00:00 [facility] Polio (IPV/OPV) 2002-02-22 Completed [facility] 00:00:00 [facility] Varicella 2002-02-22 Completed [facility] (varivax)(chicken 00:00:00 [facility]ox) [facility] MMR 2002-02-22 Completed [facility] 00:00:00 [facility] Polio (IPV/OPV) 2002-02-22 Completed [facility] 00:00:00 [facility] Varicella 2002-02-22 Completed [facility] (varivax)(chicken 00:00:00 [facility]ox) [facility] MMR 2002-02-22 Completed [facility] 00:00:00 [facility] Polio (IPV/OPV) 2002-02-22 Completed [facility] 00:00:00 [facility] Varicella 2002-02-22 Completed [facility] (varivax)(chicken 00:00:00 [facility] pox) [facility] MMR 2002-02-22 Completed [facility] 00:00:00 [facility] Polio (IPV/OPV) 2002-02-22 Completed [facility] 00:00:00 [facility] Varicella 2002-02-22 Completed [facility] (varivax)(chicken 00:00:00 [facility]ox) [facility] MMR 2002-02-22 Completed [facility] 00:00:00 [facility] Polio (IPV/OPV) 2002-02-22 Completed [facility] 00:00:00 [facility] Varicella 2002-02-22 Completed [facility] (varivax)(chicken 00:00:00 [facility] pox) [facility] MMR 2002-02-22 Completed [facility] 00:00:00 [facility] Polio (IPV/OPV) 2002-02-22 Completed [facility] 00:00:00 [facility] Varicella 2002-02-22 Completed [facility] (varivax)(chicken 00:00:00 [facility] pox) [facility] MMR 2002-02-22 Completed University of 00:00:00 [facility] Polio (IPV/OPV) 2002-02-22 Completed [facility] 00:00:00 [facility] Varicella 2002-02-22 Completed University of (varivax)(chicken 00:00:00 [place] [facility] pox) [facility] MMR 2002-02-22 Completed [facility] of 00:00:00 [facility] Polio (IPV/OPV) 2002-02-22 Completed [facility] 00:00:00 [facility] Varicella 2002-02-22 Completed [facility] of (varivax)(chicken 00:00:00 [place] [facility] pox) [facility] MMR 2002-02-22 Completed [facility] of 00:00:00 [facility] Polio (IPV/OPV) 2002-02-22 Completed [facility] 00:00:00 [facility] Varicella 2002-02-22 Completed [facility] (varivax)(chicken 00:00:00 [place] [facility] pox) [facility] MMR 2002-02-22 Completed [facility] of 00:00:00 [facility] Polio (IPV/OPV) 2002-02-22 Completed [facility] 00:00:00 [facility] Varicella 2002-02-22 Completed [facility] (varivax)(chicken 00:00:00 [place] [facility] pox) [facility] MMR 2002-02-22 Completed [facility] of 00:00:00 [facility] Polio (IPV/OPV) 2002-02-22 Completed [facility] 00:00:00 [facility] Varicella 2002-02-22 Completed [facility] (varivax)(chicken 00:00:00 [place] [facility] pox) [facility] MMR 2002-02-22 Completed [facility] of 00:00:00 [facility] Polio (IPV/OPV) 2002-02-22 Completed [facility] 00:00:00 [facility] Varicella 2002-02-22 Completed [facility] (varivax)(chicken 00:00:00 [place] [facility] pox[facility] 2002-02-22 Completed [facility] of 00:00:00 [facility] Polio (IPV/OPV) 2002-02-22 Completed [facility] 00:00:00 [facility] Varicella 2002-02-22 Completed [facility] (varivax)(chicken 00:00:00 [place] [facility] pox) [facility] MMR 2002-02-22 Completed [facility] of 00:00:00 [facility] MMR 2002-02-22 Completed [facility] of 00:00:00 [facility] Polio (IPV/OPV) 2002-02-22 Completed [facility] 00:00:00 [facility] Varicella 2002-02-22 Completed [facility] (varivax)(chicken 00:00:00 [place] [facility] pox[facility] Polio (IPV/OPV) 2002-02-22 Completed [facility] 00:00:00 [facility] Varicella 2002-02-22 Completed [facility] (varivax)(chicken 00:00:00 [place] [facility] pox) [facility] MMR 2002-02-22 Completed [facility] of 00:00:00 [facility] Polio (IPV/OPV) 2002-02-22 Completed [facility] 00:00:00 [facility] Varicella 2002-02-22 Completed [facility] (varivax)(chicken 00:00:00 [place] [facility] pox) [facility] MMR 2002-02-22 Completed [facility] of 00:00:00 [facility] Polio (IPV/OPV) 2002-02-22 Completed [facility] 00:00:00 [facility] Varicella 2002-02-22 Completed [facility] (varivax)(chicken 00:00:00 [place] [facility] pox[facility] 2002-02-22 Completed [facility] of 00:00:00 [facility] Polio (IPV/OPV) 2002-02-22 Completed [facility] 00:00:00 [facility] Varicella 2002-02-22 Completed [facility] (varivax)(chicken 00:00:00 [place] [facility] pox[facility] 2002-02-22 Completed [facility] 00:00:00 [facility] Polio (IPV/OPV) 2002-02-22 Completed [facility] 00:00:00 [facility] Varicella 2002-02-22 Completed [facility] (varivax)(chicken 00:00:00 [place] [facility] pox) [facility] MMR 2002-02-22 Completed [facility] of 00:00:00 [facility] Polio (IPV/OPV) 2002-02-22 Completed [facility] 00:00:00 [facility] Varicella 2002-02-22 Completed [facility] (varivax)(chicken 00:00:00 [place] [facility] pox) [facility] MMR 2002-02-22 Completed [facility] of 00:00:00 [facility] Polio (IPV/OPV) 2002-02-22 Completed [facility] 00:00:00 [facility] Varicella 2002-02-22 Completed [facility] (varivax)(chicken 00:00:00 [place] [facility] pox) [facility] MMR 2002-02-22 Completed [facility] of 00:00:00 [facility] Polio (IPV/OPV) 2002-02-22 Completed [facility] 00:00:[address] [facility] Varicella 2002-02-22 Completed [facility] (varivax)(chicken 00:00:00 [place] [facility] pox) [facility] MMR 2002-02-22 Completed [facility] of 00:00:00 [facility] Polio (IPV/OPV) 2002-02-22 Completed [facility] 00:00:00 [facility] Varicella 2002-02-22 Completed [facility] (varivax)(chicken 00:00:00 [place] [facility] pox) [facility] MMR 2002-02-22 Completed [facility] of 00:00:[address] [facility] MMR 2002-02-22 Completed [facility] of 00:00:00 [facility] Polio (IPV/OPV) 2002-02-22 Completed [facility] 00:00:00 [facility] Varicella 2002-02-22 Completed [facility] (varivax)(chicken 00:00:00 [place] [facility] pox) [facility] Polio (IPV/OPV) 2002-02-22 Completed [facility] 00:00:00 [facility] MMR 2002-02-22 Completed [facility] of 00:00:00 [facility] Polio (IPV/OPV) 2002-02-22 Completed [facility] 00:00:00 [facility] Varicella 2002-02-22 Completed [facility] (varivax)(chicken 00:00:00 [place] [facility] pox) [facility] Varicella 2002-02-22 Completed [facility] (varivax)(chicken 00:00:00 [place] [facility] pox) [facility] MMR 2002-02-22 Completed [facility] of 00:00:00 [facility] Polio (IPV/OPV) 2002-02-22 Completed [facility] 00:00:00 [facility] Varicella 2002-02-22 Completed [facility] (varivax)(chicken 00:00:00 [place] [facility] pox) [facility] Hep B, Adol or Pedi 2001 Completed Unive rsity of Dosage 00:00:00 [facility] Hep B, Adol or Pedi 2001 Completed [facility]ive rsity of Dosage 00:00:00 [facility] Hep B, Adol or Pedi 2001 Completed [facility]ive rsity of Dosage 00:00:00 [facility] Hep B, Adol or Pedi 2001 Completed [facility]ive rsity of Dosage 00:00:00 [facility] Hep B, Adol or Pedi 2001 Completed [facility]ive rsity of Dosage 00:00:00 [facility] Hep B, Adol or Pedi 2001 Completed [facility]ive rsity of Dosage 00:00:00 [facility] Hep B, Adol or Pedi 2001 Completed [facility]ive rsity of Dosage 00:00:00 [facility] Hep B, Adol or Pedi 2001 Completed [facility]ive rsity of Dosage 00:00:00 [facility] Hep B, Adol or Pedi 2001 Completed [facility]ive rsity of Dosage 00:00:00 [facility] Hep B, Adol or Pedi 2001 Completed [facility]ive rsity of Dosage 00:00:00 [facility] Hep B, Adol or Pedi 2001 Completed [facility]ive rsity of Dosage 00:00:00 [facility] Hep B, Adol or Pedi 2001 Completed [facility]ive rsity of Dosage 00:00:00 [facility] Hep B, Adol or Pedi 2001 Completed [facility]ive rsity of Dosage 00:00:00 [facility] Hep B, Adol or Pedi 2001 Completed [facility]ive rsity of Dosage 00:00:00 [facility] Hep B, Adol or Pedi 2001 Completed [facility]ive rsity of Dosage 00:00:00 [facility] Hep B, Adol or Pedi 2001 Completed [facility]ive rsity of Dosage 00:00:00 [facility] Hep B, Adol or Pedi 2001 Completed [facility]ive rsity of Dosage 00:00:00 [facility] Hep B, Adol or Pedi 2001 Completed [facility]ive rsity of Dosage 00:00:00 [facility] Hep B, Adol or Pedi 2001 Completed [facility]ive rsity of Dosage 00:00:00 [facility] Hep B, Adol or Pedi 2001 Completed [facility]ive rsity of Dosage 00:00:00 [facility] Hep B, Adol or Pedi 2001 Completed [facility]ive rsity of Dosage 00:00:00 [facility] Hep B, Adol or Pedi 2001 Completed [facility]ive rsity of Dosage 00:00:00 [facility] Hep B, Adol or Pedi 2001 Completed Unive rsity of Dosage 00:00:[address] [facility] Hep B, Adol or Pedi 2001 Completed [facility]ive rsity of Dosage 00:00:00 [facility] Hep B, Adol or Pedi 2001 Completed [facility]ive rsity of Dosage 00:00:00 [facility] Hep B, Adol or Pedi 2001 Completed [facility]ive rsity of Dosage 00:00:00 [facility] Hep B, Adol or Pedi 2001 Completed Unive rsity of Dosage 00:00:00 [facility] Pneumococcal 7 2001 Completed University of Conjugate, PCV7 00:00:00 [place] [facility] (Prevnar7) [facility] DTAP 2001 Completed [facility] of 00:00:00 [facility] HIB 4 Dose Schedule 2001 Completed Unive rsity of 00:00:00 [facility] Pneumococcal 7 2001 Completed University of Conjugate, PCV7 00:00:00 [place] [facility] (Prevnar7) [facility] DTAP 2001 Completed [facility] of 00:00:00 [facility] HIB 4 Dose Schedule 2001 Completed Unive rsity of 00:00:00 [facility] Pneumococcal 7 2001 Completed [facility] of Conjugate, PCV7 00:00:00 [place] [facility] (Prevnar7) [facility] DTAP 2001 Completed [facility] of 00:00:00 [facility] HIB 4 Dose Schedule 2001 Completed Unive rsity of 00:00:00 [facility] DTAP 2001 Completed [facility] 00:00:00 [facility] Pneumococcal 7 2001 Completed [facility] of Conjugate, PCV7 00:00:00 [place] [facility] (Prevnar7) [facility] DTAP 2001 Completed [facility] of 00:00:00 [facility] HIB 4 Dose Schedule 2001 Completed Unive rsity of 00:00:00 [facility] HIB 4 Dose Schedule 2001 Completed Unive rsity of 00:00:00 [facility] Pneumococcal 7 2001 Completed [facility] of Conjugate, PCV7 00:00:00 [place] [facility] (Prevnar7) [facility] DTAP 2001 Completed [facility] of 00:00:00 [facility] HIB 4 Dose Schedule 2001 Completed Unive rsity of 00:00:00 [facility] Pneumococcal 7 2001 Completed [facility] of Conjugate, PCV7 00:00:00 [place] [facility] (Prevnar7) [facility] DTAP 2001 Completed [facility] of 00:00:00 [facility] HIB 4 Dose Schedule 2001 Completed Unive rsity of 00:00:00 [facility] Pneumococcal 7 2001 Completed [facility] of Conjugate, PCV7 00:00:00 [place] [facility] (Prevnar7) [facility] DTAP 2001 Completed [facility] of 00:00:00 [facility] HIB 4 Dose Schedule 2001 Completed Unive rsity of 00:00:00 [facility] DTAP 2001 Completed [facility] of 00:00:00 [facility] Pneumococcal 7 2001 Completed [facility] of Conjugate, PCV7 00:00:00 [place] [facility] (Prevnar7) [facility] Pneumococcal 7 2001 Completed [facility] of Conjugate, PCV7 00:00:00 [place] [facility] (Prevnar7) [facility] DTAP 2001 Completed [facility] of 00:00:00 [facility] HIB 4 Dose Schedule 2001 Completed Unive rsity of 00:00:00 [facility] HIB 4 Dose Schedule 2001 Completed Unive rsity of 00:00:00 [facility] Pneumococcal 7 2001 Completed [facility] Conjugate, PCV7 00:00:00 [place] [facility] (Prevnar7) [facility] DTAP 2001 Completed [facility] 00:00:00 [facility] HIB 4 Dose Schedule 2001 Completed Unive rsity of 00:00:00 [facility] Pneumococcal 7 2001 Completed [facility] Conjugate, PCV7 00:00:00 [place] [facility] (Prevnar7) [facility] DTAP 2001 Completed [facility] 00:00:00 [facility] HIB 4 Dose Schedule 2001 Completed Unive rsity of 00:00:00 [facility] Pneumococcal 7 2001 Completed [facility] Conjugate, PCV7 00:00:00 [place] [facility] (Prevnar7) [facility] DTAP 2001 Completed [facility] of 00:00:00 [facility] HIB 4 Dose Schedule 2001 Completed Unive rsity of 00:00:[address] [facility] Pneumococcal 7 2001 Completed [facility] of Conjugate, PCV7 00:00:00 [place] [facility] (Prevnar7) [facility] DTAP 2001 Completed [facility] of 00:00:[address] [facility] HIB 4 Dose Schedule 2001 Completed Unive rsity of 00:00:00 [facility] Pneumococcal 7 2001 Completed [facility] of Conjugate, PCV7 00:00:00 [place] [facility] (Prevnar7) [facility] DTAP 2001 Completed [facility] 00:00:00 [facility] HIB 4 Dose Schedule 2001 Completed Unive rsity of 00:00:00 [facility] Pneumococcal 7 2001 Completed [facility] of Conjugate, PCV7 00:00:00 [place] [facility] (Prevnar7) [facility] DTAP 2001 Completed [facility] 00:00:00 [facility] Pneumococcal 7 2001 Completed [facility] Conjugate, PCV7 00:00:00 [place] [facility] (Prevnar7) [facility] HIB 4 Dose Schedule 2001 Completed Unive rsity of 00:00:00 [facility] Pneumococcal 7 2001 Completed [facility] of Conjugate, PCV7 00:00:00 [place] [facility] (Prevnar7) [facility] DTAP 2001 Completed [facility] 00:00:00 [facility] HIB 4 Dose Schedule 2001 Completed Unive rsity of 00:00:00 [facility] Pneumococcal 7 2001 Completed [facility] Conjugate, PCV7 00:00:00 [place] [facility] (Prevnar7) [facility] DTAP 2001 Completed [facility] 00:00:00 [facility] HIB 4 Dose Schedule 2001 Completed Unive rsity of 00:00:00 [facility] Pneumococcal 7 2001 Completed [facility] Conjugate, PCV7 00:00:00 [place] [facility] (Prevnar7) [facility] DTAP 2001 Completed [facility] of 00:00:[address] [facility] DTAP 2001 Completed [facility] 00:00:00 [facility] HIB 4 Dose Schedule 2001 Completed Unive rsity of 00:00:00 [facility] Pneumococcal 7 2001 Completed [facility] Conjugate, PCV7 00:00:00 [place] [facility] (Prevnar7) [facility] HIB 4 Dose Schedule 2001 Completed Unive rsity of 00:00:00 [facility] DTAP 2001 Completed [facility] 00:00:00 [facility] HIB 4 Dose Schedule 2001 Completed Unive rsity of 00:00:00 [facility] Pneumococcal 7 2001 Completed [facility] of Conjugate, PCV7 00:00:00 [place] [facility] (Prevnar7) [facility] DTAP 2001 Completed [facility] 00:00:00 [facility] HIB 4 Dose Schedule 2001 Completed Unive rsity of 00:00:00 [facility] Pneumococcal 7 2001 Completed [facility] Conjugate, PCV7 00:00:00 [place] [facility] (Prevnar7) [facility] DTAP 2001 Completed [facility] 00:00:00 [facility] HIB 4 Dose Schedule 2001 Completed Unive rsity of 00:00:00 [facility] Pneumococcal 7 2001 Completed [facility] Conjugate, PCV7 00:00:00 [place] [facility] (Prevnar7) [facility] DTAP 2001 Completed [facility] 00:00:00 [facility] HIB 4 Dose Schedule 2001 Completed Unive rsity of 00:00:00 [facility] Pneumococcal 7 2001 Completed [facility] Conjugate, PCV7 00:00:00 [place] [facility] (Prevnar7) [facility] DTAP 2001 Completed [facility] 00:00:00 [facility] HIB 4 Dose Schedule 2001 Completed [facility]ive rsity of 00:00:00 [facility] Pneumococcal 7 2001 Completed [facility] Conjugate, PCV7 00:00:00 [place] [facility] (Prevnar7) [facility] DTAP 2001 Completed [facility] 00:00:00 [facility] HIB 4 Dose Schedule 2001 Completed Unive rsity of 00:00:00 [facility] Pneumococcal 7 2001 Completed [facility] Conjugate, PCV7 00:00:00 [place] [facility] (Prevnar7) [facility] Pneumococcal 7 2001 Completed [facility] Conjugate, PCV7 00:00:00 [place] [facility] (Prevnar7) [facility] DTAP 2001 Completed [facility] 00:00:00 [facility] HIB 4 Dose Schedule 2001 Completed [facility]ive rsity of 00:00:00 [facility] Hep B, Adol or Pedi 2001 Completed Unive rsity of Dosage 00:00:00 [facility] Hep B, Adol or Pedi 2001 Completed [facility]ive rsity of Dosage 00:00:00 [facility] Hep B, Adol or Pedi 2001 Completed [facility]ity of Dosage 00:00:00 [facility] Hep B, Adol or Pedi 2001 Completed [facility]ity of Dosage 00:00:00 [facility] Hep B, Adol or Pedi 2001 Completed [facility] rsity of Dosage 00:00:00 [facility] Hep B, Adol or Pedi 2001 Completed [facility] of Dosage 00:00:00 [facility] Hep B, Adol or Pedi 2001 Completed [facility] of Dosage 00:00:00 [facility] Hep B, Adol or Pedi 2001 Completed [facility]ive rsity of Dosage 00:00:00 [facility] Hep B, Adol or Pedi 2001 Completed [facility]ity of Dosage 00:00:00 [facility] Hep B, Adol or Pedi 2001 Completed [facility]ity of Dosage 00:00:00 [facility] Hep B, Adol or Pedi 2001 Completed [facility]ity of Dosage 00:00:00 [facility] Hep B, Adol or Pedi 2001 Completed [facility]ity of Dosage 00:00:00 [facility] Hep B, Adol or Pedi 2001 Completed [facility]ity of Dosage 00:00:00 [facility] Hep B, Adol or Pedi 2001 Completed [facility] rsity of Dosage 00:00:00 [facility] Hep B, Adol or Pedi 2001 Completed [facility] of Dosage 00:00:00 [facility] Hep B, Adol or Pedi 2001 Completed [facility] of Dosage 00:00:00 [facility] Hep B, Adol or Pedi 2001 Completed [facility] of Dosage 00:00:00 [facility] Hep B, Adol or Pedi 2001 Completed [facility] of Dosage 00:00:00 [facility] Hep B, Adol or Pedi 2001 Completed [facility] of Dosage 00:00:00 [facility] Hep B, Adol or Pedi 2001 Completed [facility] of Dosage 00:00:00 [facility] Hep B, Adol or Pedi 2001 Completed [facility]ity of Dosage 00:00:00 [facility] Hep B, Adol or Pedi 2001 Completed [facility] of Dosage 00:00:00 [facility] Hep B, Adol or Pedi 2001 Completed [facility]ity of Dosage 00:00:00 [facility] Hep B, Adol or Pedi 2001 Completed [facility] of Dosage 00:00:[address] [facility] Hep B, Adol or Pedi 2001 Completed [facility] rsity of Dosage 00:00:00 [facility] Hep B, Adol or Pedi 2001 Completed [facility] of Dosage 00:00:[address] [facility] Hep B, Adol or Pedi 2001 Completed [facility] of Dosage 00:00:00 [facility] Polio (IPV/OPV) 2001 Completed [facility] 00:00:00 [facility] Pneumococcal 7 2001 Completed [facility] Conjugate, PCV7 00:00:00 [place] [facility] (Prevnar7) [facility] DTAP 2001 Completed [facility] 00:00:00 [facility] HIB 4 Dose Schedule 2001 Completed [facility]ive [facility]ity of 00:00:00 [facility] Polio (IPV/OPV) 2001 Completed [facility] 00:00:00 [facility] Pneumococcal 7 2001 Completed [facility] Conjugate, PCV7 00:00:00 [place] [facility] (Prevnar7) [facility] DTAP 2001 Completed [facility] 00:00:00 [facility] HIB 4 Dose Schedule 2001 Completed [facility]ity of 00:00:00 [facility] Polio (IPV/OPV) 2001 Completed [facility] 00:00:00 [facility] Pneumococcal 7 2001 Completed [facility] Conjugate, PCV7 00:00:00 [place] [facility] (Prevnar7) [facility] DTAP 2001 Completed [facility] 00:00:00 [facility] HIB 4 Dose Schedule 2001 Completed [facility]ity of 00:00:00 [facility] DTAP 2001 Completed [facility] 00:00:00 [facility] Polio (IPV/OPV) 2001 Completed [facility] 00:00:00 [facility] Pneumococcal 7 2001 Completed [facility] Conjugate, PCV7 00:00:00 [place] [facility] (Prevnar7) [facility] DTAP 2001 Completed [facility] 00:00:00 [facility] HIB 4 Dose Schedule 2001 Completed [facility] of 00:00:00 [facility] HIB 4 Dose Schedule 2001 Completed [facility] of 00:00:00 [facility] Polio (IPV/OPV) 2001 Completed [facility] 00:00:00 [facility] Pneumococcal 7 2001 Completed [facility] Conjugate, PCV7 00:00:00 [place] [facility] (Prevnar7) [facility] DTAP 2001 Completed [facility] 00:00:00 [facility] HIB 4 Dose Schedule 2001 Completed [facility] of 00:00:00 [facility] Polio (IPV/OPV) 2001 Completed [facility] 00:00:00 [facility] Pneumococcal 7 2001 Completed [facility] Conjugate, PCV7 00:00:00 [place] [facility] (Prevnar7) [facility] DTAP 2001 Completed [facility] 00:00:00 [facility] DTAP 2001 Completed [facility] of 00:00:00 [facility] HIB 4 Dose Schedule 2001 Completed [facility]ity of 00:00:00 [facility] Polio (IPV/OPV) 2001 Completed [facility] 00:00:00 [facility] Pneumococcal 7 2001 Completed [facility] Conjugate, PCV7 00:00:00 [place] [facility] (Prevnar7) [facility] DTAP 2001 Completed [facility] 00:00:00 [facility] HIB 4 Dose Schedule 2001 Completed [facility] of 00:00:00 [facility] Polio (IPV/OPV) 2001 Completed [facility] 00:00:00 [facility] Pneumococcal 7 2001 Completed [facility] Conjugate, PCV7 00:00:00 [place] [facility] (Prevnar7) [facility] Polio (IPV/OPV) 2001 Completed [facility] 00:00:00 [facility] Pneumococcal 7 2001 Completed [facility] Conjugate, PCV7 00:00:00 [place] [facility] (Prevnar7) [facility] DTAP 2001 Completed [facility] 00:00:00 [facility] HIB 4 Dose Schedule 2001 Completed [facility] of 00:00:00 [facility] HIB 4 Dose Schedule 2001 Completed [facility] of 00:00:00 [facility] Polio (IPV/OPV) 2001 Completed [facility] 00:00:00 [facility] Pneumococcal 7 2001 Completed [facility] Conjugate, PCV7 00:00:00 [place] [facility] (Prevnar7) [facility] DTAP 2001 Completed [facility] 00:00:00 [facility] HIB 4 Dose Schedule 2001 Completed [facility] of 00:00:00 [facility] Polio (IPV/OPV) 2001 Completed [facility] 00:00:00 [facility] Pneumococcal 7 2001 Completed [facility] Conjugate, PCV7 00:00:00 [place] [facility] (Prevnar7) [facility] DTAP 2001 Completed [facility] 00:00:00 [facility] HIB 4 Dose Schedule 2001 Completed [facility] of 00:00:00 [facility] Polio (IPV/OPV) 2001 Completed [facility] 00:00:00 [facility] Pneumococcal 7 2001 Completed [facility] Conjugate, PCV7 00:00:00 [place] [facility] (Prevnar7) [facility] DTAP 2001 Completed [facility] 00:00:00 [facility] HIB 4 Dose Schedule 2001 Completed [facility] of 00:00:00 [facility] Polio (IPV/OPV) 2001 Completed [facility] 00:00:00 [facility] Pneumococcal 7 2001 Completed [facility] Conjugate, PCV7 00:00:00 [place] [facility] (Prevnar7) [facility] DTAP 2001 Completed [facility] 00:00:00 [facility] HIB 4 Dose Schedule 2001 Completed [facility] of 00:00:00 [facility] Polio (IPV/OPV) 2001 Completed [facility] 00:00:00 [facility] Pneumococcal 7 2001 Completed [facility] Conjugate, PCV7 00:00:00 [place] [facility] (Prevnar7) [facility] Polio (IPV/OPV) 2001 Completed [facility] 00:00:00 [facility] DTAP 2001 Completed [facility] 00:00:00 [facility] HIB 4 Dose Schedule 2001 Completed [facility] 00:00:00 [facility] Polio (IPV/OPV) 2001 Completed [facility] 00:00:00 [facility] Pneumococcal 7 2001 Completed [facility] Conjugate, PCV7 00:00:00 [place] [facility] (Prevnar7) [facility] Pneumococcal 7 2001 Completed [facility] Conjugate, PCV7 00:00:00 [place] [facility] (Prevnar7) [facility] DTAP 2001 Completed [facility] 00:00:00 [facility] HIB 4 Dose Schedule 2001 Completed [facility] 00:00:00 [facility] Polio (IPV/OPV) 2001 Completed [facility] 00:00:00 [facility] Pneumococcal 7 2001 Completed [facility] Conjugate, PCV7 00:00:00 [place] [facility] (Prevnar7) [facility] DTAP 2001 Completed [facility] 00:00:00 [facility] HIB 4 Dose Schedule 2001 Completed [facility] 00:00:00 [facility] Polio (IPV/OPV) 2001 Completed [facility] 00:00:00 [facility] Pneumococcal 7 2001 Completed [facility] Conjugate, PCV7 00:00:00 [place] [facility] (Prevnar7) [facility] DTAP 2001 Completed [facility] 00:00:00 [facility] HIB 4 Dose Schedule 2001 Completed [facility] 00:00:00 [facility] Polio (IPV/OPV) 2001 Completed Universit y of 00:00:00 [facility] Pneumococcal 7 2001 Completed University of Conjugate, PCV7 00:00:00 [place] [facility] (Prevnar7) [facility] DTAP 2001 Completed University of 00:00:00 [facility] DTAP 2001 Completed University of 00:00:00 [facility] HIB 4 Dose Schedule 2001 Completed Unive rsity of 00:00:00 [facility] Polio (IPV/OPV) 2001 Completed Universit y of 00:00:00 [facility] HIB 4 Dose Schedule 2001 Completed Unive rsity of 00:00:00 [facility] Pneumococcal 7 2001 Completed University of Conjugate, PCV7 00:00:00 [place] [facility] (Prevnar7) [facility] DTAP 2001 Completed University of 00:00:00 [facility] HIB 4 Dose Schedule 2001 Completed Unive rsity of 00:00:00 [facility] Polio (IPV/OPV) 2001 Completed Universit y of 00:00:00 [facility] Pneumococcal 7 2001 Completed University of Conjugate, PCV7 00:00:00 [place] [facility] (Prevnar7) [facility] DTAP 2001 Completed University of 00:00:00 [facility] HIB 4 Dose Schedule 2001 Completed Unive rsity of 00:00:00 [facility] Polio (IPV/OPV) 2001 Completed Universit y of 00:00:00 [facility] Pneumococcal 7 2001 Completed University of Conjugate, PCV7 00:00:00 [place] [facility] (Prevnar7) [facility] DTAP 2001 Completed University of 00:00:00 [facility] HIB 4 Dose Schedule 2001 Completed Unive rsity of 00:00:00 [facility] Polio (IPV/OPV) 2001 Completed Universit y of 00:00:00 [facility] Pneumococcal 7 2001 Completed University of Conjugate, PCV7 00:00:00 [place] [facility] (Prevnar7) [facility] DTAP 2001 Completed University of 00:00:00 [facility] HIB 4 Dose Schedule 2001 Completed Unive rsity of 00:00:00 [facility] Polio (IPV/OPV) 2001 Completed Universit y of 00:00:00 [facility] Pneumococcal 7 2001 Completed University of Conjugate, PCV7 00:00:00 [place] [facility] (Pre[facility]7) [facility] DTAP 2001 Completed University of 00:00:00 [facility] HIB 4 Dose Schedule 2001 Completed Unive rsity of 00:00:00 [facility] Polio (IPV/OPV) 2001 Completed Universit y of 00:00:00 [facility] Polio (IPV/OPV) 2001 Completed Universit y of 00:00:00 [facility] Pneumococcal 7 2001 Completed University of Conjugate, PCV7 00:00:00 [place] [facility] (Prevnar7) [facility] DTAP 2001 Completed University of 00:00:00 [facility] HIB 4 Dose Schedule 2001 Completed Unive rsity of 00:00:00 [facility] Pneumococcal 7 2001 Completed University of Conjugate, PCV7 00:00:00 [place] [facility] (Prevnar7) [facility] Polio (IPV/OPV) 2001 Completed Universit [facility] of 00:00:00 [facility] Pneumococcal 7 2001 Completed University of Conjugate, PCV7 00:00:00 [place] [facility] (Prevnar7) [facility] DTAP 2001 Completed University of 00:00:00 [facility] HIB 4 Dose Schedule 2001 Completed Unive rsity of 00:00:00 [facility] Hep B, Adol or Pedi 2001 Completed Unive rsity of Dosage 00:00:00 [facility] Hep B, Adol or Pedi 2001 Completed Unive rsity of Dosage 00:00:00 [facility] Hep B, Adol or Pedi 2001 Completed Unive rsity of Dosage 00:00:00 [facility] Hep B, Adol or Pedi 2001 Completed Unive rsity of Dosage 00:00:00 [facility] Hep B, Adol or Pedi 2001 Completed Unive rsity of Dosage 00:00:00 [facility] Hep B, Adol or Pedi 2001 Completed Unive rsity of Dosage 00:00:00 [facility] Hep B, Adol or Pedi 2001 Completed Unive rsity of Dosage 00:00:00 [facility] Hep B, Adol or Pedi 2001 Completed Unive rsity of Dosage 00:00:00 [facility] Hep B, Adol or Pedi 2001 Completed Unive rsity of Dosage 00:00:00 [facility] Hep B, Adol or Pedi 2001 Completed Unive rsity of Dosage 00:00:00 [facility] Hep B, Adol or Pedi 2001 Completed Unive rsity of Dosage 00:00:00 [facility] Hep B, Adol or Pedi 2001 Completed Unive rsity of Dosage 00:00:00 [facility] Hep B, Adol or Pedi 2001 Completed Unive rsity of Dosage 00:00:00 [facility] Hep B, Adol or Pedi 2001 Completed Unive rsity of Dosage 00:00:00 [facility] Hep B, Adol or Pedi 2001 Completed Unive rsity of Dosage 00:00:00 [facility] Hep B, Adol or Pedi 2001 Completed Unive rsity of Dosage 00:00:00 [facility] Hep B, Adol or Pedi 2001 Completed Unive rsity of Dosage 00:00:00 [facility] Hep B, Adol or Pedi 2001 Completed Unive rsity of Dosage 00:00:00 [facility] Hep B, Adol or Pedi 2001 Completed Unive rsity of Dosage 00:00:00 [facility] Hep B, Adol or Pedi 2001 Completed Unive rsity of Dosage 00:00:00 [facility] Hep B, Adol or Pedi 2001 Completed Unive rsity of Dosage 00:00:00 [facility] Hep B, Adol or Pedi 2001 Completed Unive rsity of Dosage 00:00:00 [facility] Hep B, Adol or Pedi 2001 Completed Unive rsity of Dosage 00:00:[address] [facility] Hep B, Adol or Pedi 2001 Completed Unive rsity of Dosage 00:00:[address] [facility] Hep B, Adol or Pedi 2001 Completed Unive rsity of Dosage 00:00:00 [facility] Hep B, Adol or Pedi 2001 Completed Unive rsity of Dosage 00:00:[address] [facility] Hep B, Adol or Pedi 2001 Completed Unive rsity of Dosage 00:00:00 [facility] Polio (IPV/OPV) 2001 Completed Universit y of 00:00:00 [facility] Pneumococcal 7 2001 Completed University of Conjugate, PCV7 00:00:00 [place] [facility] (Prevnar7) [facility] DTAP 2001 Completed University of 00:00:00 [facility] HIB 4 Dose Schedule 2001 Completed Unive rsity of 00:00:00 [facility] Polio (IPV/OPV) 2001 Completed Universit [facility] of 00:00:00 [facility] Pneumococcal 7 2001 Completed University of Conjugate, PCV7 00:00:00 [place] [facility] (Prevnar7) [facility] DTAP 2001 Completed University of 00:00:00 [facility] HIB 4 Dose Schedule 2001 Completed Unive rsity of 00:00:00 [facility] Polio (IPV/OPV) 2001 Completed Universit y of 00:00:00 [facility] Pneumococcal 7 2001 Completed University of Conjugate, PCV7 00:00:00 [place] [facility] (Prevnar7) [facility] DTAP 2001 Completed University of 00:00:00 [facility] DTAP 2001 Completed University of 00:00:00 [facility] HIB 4 Dose Schedule 2001 Completed Unive rsity of 00:00:00 [facility] Polio (IPV/OPV) 2001 Completed Universit y of 00:00:00 [facility] Pneumococcal 7 2001 Completed University of Conjugate, PCV7 00:00:00 [place] [facility] (Pre[facility] DTAP 2001 Completed University of 00:00:[address] [facility] DTAP 2001 Completed University of 00:00:00 [facility] HIB 4 Dose Schedule 2001 Completed Unive rsity of 00:00:00 [facility] HIB 4 Dose Schedule 2001 Completed Unive rsity of 00:00:00 [facility] Polio (IPV/OPV) 2001 Completed Universit y of 00:00:00 [facility] Pneumococcal 7 2001 Completed University of Conjugate, PCV7 00:00:00 [place] [facility] (Prevnar7) [facility] DTAP 2001 Completed University of 00:00:00 [facility] HIB 4 Dose Schedule 2001 Completed Unive rsity of 00:00:00 [facility] Polio (IPV/OPV) 2001 Completed Universit y of 00:00:00 [facility] Pneumococcal 7 2001 Completed University of Conjugate, PCV7 00:00:00 [place] [facility] (Prevnar7) [facility] DTAP 2001 Completed University of 00:00:00 [facility] HIB 4 Dose Schedule 2001 Completed Unive rsity of 00:00:00 [facility] Polio (IPV/OPV) 2001 Completed Universit [facility] of 00:00:00 [facility] Pneumococcal 7 2001 Completed University of Conjugate, PCV7 00:00:00 [place] [facility] (Prevnar7) [facility] DTAP 2001 Completed University of 00:00:00 [facility] HIB 4 Dose Schedule 2001 Completed Unive rsity of 00:00:00 [facility] Polio (IPV/OPV) 2001 Completed [facility]it [facility] of 00:00:00 [facility] Pneumococcal 7 2001 Completed University of Conjugate, PCV7 00:00:00 [place] [facility] (Prevnar7[facility] Polio (IPV/OPV) 2001 Completed Universit y of 00:00:00 [facility] Pneumococcal 7 2001 Completed University of Conjugate, PCV7 00:00:00 [place] [facility] (Prevnar7) [facility] DTAP 2001 Completed University of 00:00:00 [facility] HIB 4 Dose Schedule 2001 Completed Unive rsity of 00:00:00 [facility] HIB 4 Dose Schedule 2001 Completed Unive rsity of 00:00:00 [facility] Polio (IPV/OPV) 2001 Completed Universit y of 00:00:00 [facility] Pneumococcal 7 2001 Completed University of Conjugate, PCV7 00:00:00 [place] [facility] (Prevnar7) [facility] DTAP 2001 Completed University of 00:00:00 [facility] HIB 4 Dose Schedule 2001 Completed Unive rsity of 00:00:00 [facility] Polio (IPV/OPV) 2001 Completed Universit y of 00:00:00 [facility] Pneumococcal 7 2001 Completed University of Conjugate, PCV7 00:00:00 [place] [facility] (Prevnar7) [facility] DTAP 2001 Completed University of 00:00:00 [facility] HIB 4 Dose Schedule 2001 Completed Unive rsity of 00:00:00 [facility] Polio (IPV/OPV) 2001 Completed Universit y of 00:00:00 [facility] Pneumococcal 7 2001 Completed University of Conjugate, PCV7 00:00:00 [place] [facility] (Prevnar7) [facility] DTAP 2001 Completed University of 00:00:00 [facility] HIB 4 Dose Schedule 2001 Completed Unive rsity of 00:00:00 [facility] Polio (IPV/OPV) 2001 Completed Universit y of 00:00:00 [facility] Pneumococcal 7 2001 Completed University of Conjugate, PCV7 00:00:00 [place] [facility] (Prevnar7) [facility] DTAP 2001 Completed University of 00:00:00 [facility] HIB 4 Dose Schedule 2001 Completed Unive rsity of 00:00:00 [facility] Polio (IPV/OPV) 2001 Completed Universit y of 00:00:00 [facility] Pneumococcal 7 2001 Completed University of Conjugate, PCV7 00:00:00 [place] [facility] (Prevnar7) [facility] Polio (IPV/OPV) 2001 Completed Universit y of 00:00:00 [facility] DTAP 2001 Completed University of 00:00:00 [facility] HIB 4 Dose Schedule 2001 Completed Unive rsity of 00:00:00 [facility] Polio (IPV/OPV) 2001 Completed Universit y of 00:00:00 [facility] Pneumococcal 7 2001 Completed University of Conjugate, PCV7 00:00:00 [place] [facility] (Prevn[facility] Pneumococcal 7 2001 Completed University of Conjugate, PCV7 00:00:00 [place] [facility] (Prevnar7) [facility] DTAP 2001 Completed University of 00:00:00 [facility] HIB 4 Dose Schedule 2001 Completed Unive rsity of 00:00:00 [facility] Polio (IPV/OPV) 2001 Completed Universit y of 00:00:00 [facility] Pneumococcal 7 2001 Completed University of Conjugate, PCV7 00:00:00 [place] [facility] (Prevnar7) [facility] DTAP 2001 Completed University of 00:00:00 [facility] HIB 4 Dose Schedule 2001 Completed Unive rsity of 00:00:00 [facility] Polio (IPV/OPV) 2001 Completed Universit y of 00:00:00 [facility] Pneumococcal 7 2001 Completed University of Conjugate, PCV7 00:00:00 [place] [facility] (Prevnar7) [facility] DTAP 2001 Completed University of 00:00:00 [facility] HIB 4 Dose Schedule 2001 Completed Unive rsity of 00:00:00 [facility] Polio (IPV/OPV) 2001 Completed Universit y of 00:00:00 [facility] Pneumococcal 7 2001 Completed University of Conjugate, PCV7 00:00:00 [place] [facility] (Prevnar7) [facility] DTAP 2001 Completed University of 00:00:00 [facility] DTAP 2001 Completed University of 00:00:00 [facility] HIB 4 Dose Schedule 2001 Completed Unive rsity of 00:00:00 [facility] HIB 4 Dose Schedule 2001 Completed Unive rsity of 00:00:00 [facility] Polio (IPV/OPV) 2001 Completed Universit y of 00:00:00 [facility] Pneumococcal 7 2001 Completed University of Conjugate, PCV7 00:00:00 [place] [facility] (Prevnar7) [facility] DTAP 2001 Completed University of 00:00:00 [facility] HIB 4 Dose Schedule 2001 Completed Unive rsity of 00:00:00 [facility] Polio (IPV/OPV) 2001 Completed Universit y of 00:00:00 [facility] Pneumococcal 7 2001 Completed University of Conjugate, PCV7 00:00:00 [place] [facility] (Prevnar7) [facility] DTAP 2001 Completed University of 00:00:00 [facility] HIB 4 Dose Schedule 2001 Completed Unive rsity of 00:00:00 [facility] Polio (IPV/OPV) 2001 Completed Universit y of 00:00:00 [facility] Pneumococcal 7 2001 Completed University of Conjugate, PCV7 00:00:00 [place] [facility] (Prevnar7) [facility] DTAP 2001 Completed University of 00:00:00 [facility] HIB 4 Dose Schedule 2001 Completed Unive rsity of 00:00:00 [facility] Polio (IPV/OPV) 2001 Completed Universit y of 00:00:00 [facility] Pneumococcal 7 2001 Completed University of Conjugate, PCV7 00:00:00 [place] [facility] (Prevnar7) [facility] DTAP 2001 Completed University of 00:00:00 [facility] HIB 4 Dose Schedule 2001 Completed Unive rsity of 00:00:00 [facility] Polio (IPV/OPV) 2001 Completed Universit y of 00:00:00 [facility] Pneumococcal 7 2001 Completed University of Conjugate, PCV7 00:00:00 [place] [facility] (Prevnar7) [facility] Polio (IPV/OPV) 2001 Completed Universit y of 00:00:00 [facility] DTAP 2001 Completed University of 00:00:00 [facility] HIB 4 Dose Schedule 2001 Completed Unive rsity of 00:00:00 [facility] Polio (IPV/OPV) 2001 Completed Universit y of 00:00:00 [facility] Pneumococcal 7 2001 Completed University of Conjugate, PCV7 00:00:00 [place] [facility] (Prevnar7) [facility] DTAP 2001 Completed University of 00:00:00 [facility] HIB 4 Dose Schedule 2001 Completed Unive rsity of 00:00:00 [facility] Pneumococcal 7 2001 Completed University of Conjugate, PCV7 00:00:00 [place] [facility] (Prevnar7) [facility] Polio (IPV/OPV) 2001 Completed Universit y of 00:00:00 [facility] Pneumococcal 7 2001 Completed University of Conjugate, PCV7 00:00:00 [place] [facility] (Prevnar7) [facility] DTAP 2001 Completed University of 00:00:00 [facility] HIB 4 Dose Schedule 2001 Completed Unive rsity of 00:00:00 [facility] Vital Signs Vital Name Observation Time Observation Value Comments Source Systolic blood 2022-08-13 19:20:00 137 mm[Hg] Univer sity of pressure [facility] Diastolic blood 2022-08-13 19:20:00 88 mm[Hg] Unive rsity of [facility] Heart rate 2022-08-13 19:20:00 102 /min [facility] Body temperature 2022-08-13 19:20:00 36 Kimberly [facility] Body height 2022-08-13 19:20:00 177.8 cm [facility] Body weight 2022-08-13 19:20:00 108.5 kg [facility] BMI 2022-08-13 19:20:00 34.32 kg/m2 [facility] Systolic blood 2022-08-05 19:12:00 136 mm[Hg] Univer sity of [facility] Diastolic blood 2022-08-05 19:12:00 85 mm[Hg] Unive rsity of [facility] Body height 2022-08-05 19:12:00 177.8 cm Universi ty [facility] Body weight 2022-08-05 19:12:00 108.863 kg Universi ty of [facility] BMI 2022-08-05 19:12:00 34.44 kg/m2 Universi ty of [facility] Systolic blood 2022-07-17 19:52:00 112 mm[Hg] Univer sity of pressure [facility] Diastolic blood 2022-07-17 19:52:00 71 mm[Hg] Unive rsity of pressure [facility] Heart rate 2022-07-17 19:52:00 101 /min Universi ty of [facility] Body temperature 2022-07-17 19:52:00 37.28 Kimberly Univ ersity of [facility] Body height 2022-07-17 19:52:00 177.8 cm [facility]i ty of [facility] Body weight 2022-07-17 19:52:00 106.595 kg [facility]i [facility] BMI 2022-07-17 19:52:00 33.72 kg/m2 [facility]i ty of [facility] Oxygen saturation in 2022-07-17 19:52:00 98 /min University of Arterial blood by [facility] Pulse oximetry Branch Systolic blood 2022-07-15 19:10:00 116 mm[Hg] Univer sity of pressure [facility] Diastolic blood 2022-07-15 19:10:00 71 mm[Hg] Unive rsity of pressure [facility] Heart rate 2022-07-15 19:10:00 98 /min Universi ty of [facility] Body temperature 2022-07-15 19:10:00 37.28 Kimberly Univ ersity of [facility] Body height 2022-07-15 19:10:00 177.8 cm Universi ty of [facility] Body weight 2022-07-15 19:10:00 107.049 kg [facility] BMI 2022-07-15 19:10:00 33.86 kg/m2 [facility]i ty [facility] Oxygen saturation in 2022-07-15 19:10:00 98 /min University of Arterial blood by [facility] nerissa Pulse oximetry Branch Body temperature 2020-08-29 20:34:00 36.11 Kimberly Univ ersity of [facility] Body weight 2020-08-29 20:34:00 93.849 kg [facility] Body temperature 2020-08-29 20:34:00 36.11 Kimberly [facility] Body weight 2020-08-29 20:34:00 93.849 kg [facility] Systolic blood 2019-04-07 21:13:00 112 mm[Hg] Univer sity of pressure [facility] Diastolic blood 2019-04-07 21:13:00 71 mm[facility]Hg] [facility] Heart rate 2019-04-07 21:13:00 89 /min [facility] Body temperature 2019-04-07 21:13:00 37.06 Kimberly [facility] Respiratory rate 2019-04-07 21:13:00 20 /min [facility] Body height 2019-04-07 21:13:00 177.5 cm [facility] Body weight 2019-04-07 21:13:00 98.521 kg [facility] BMI 2019-04-07 21:13:00 31.27 kg/m2 [facility] Oxygen saturation in 2019-04-07 21:13:00 99 /min [facility] Arterial blood by [facility] Pulse oximetry Branch Procedures Procedure Date / Time Performing Clinician Source Performed MR LUMBAR SPINE WO 2022-08-20 22:01:53 Daron Dillon [facility] PATIENT QUESTIONNAIRE 2022-08-13 06:01:00 Doctor Unassigned, No [facility] TDAP VACCINE, >11 YRS, 2022-07-17 20:10:37 Vern [facility]ann [facility] SARS-COV-2 COVID-19 2022-07-17 20:02:32 Vern Mccann [facility] VACCINE, 12+ YRS, 0.5ML, Medical Branch IM (MODERNA) FLU VACC ([id number]), 6 2022-07-15 19:31:56 Vern Mccann [facility] MO-64 YRS, .5ML, IM, Medical [facility] QUAD (FLUCELVAX) ASSIGNMENT OF BENEFITS 2020-08-29 20:30:53 Doctor Unassigned, No [facility] GC & CHLAMYDIA AMPLIFIED 2019-04-07 22:29:[address] [facility] MENINGOCOCCAL B VACCINE, 2019-04-07 22:28:11 Brook Baxter [facility] OMV, 2 DOSE, IM [facility] ASSIGNMENT OF BENEFITS 2019-04-07 20:22:32 Doctor Unassigned, No [facility] Encounters Start End Encounter Admission Attending Care Care Encounter Source Date/Time Date/Time Type Type Clinicians Facility Department ID 2022-10-18 2022-10-18 Outpatient Soraya MCCANN [facility] [id number] Univers 13:30:00 13:30:00 VERN murphy [facility] 2022-10-01 2022-10-01 Outpatient R DENIS [facility] [id number] Univers 13:00:00 13:00:00 HILTON mio [facility] 2022-08-22 2022-08-22 Outpatient R PETEY MORALES [facility] [id number] Univers 14:00:00 14:00:00 PETEY MORALES mio [facility] 2022-08-20 2022-08-20 Outpatient R KATHY [facility] [id number] Univers 15:19:25 23:59:00 MICHAEL murphy [facility] 2022-08-20 2022-08-20 [facility] [id number] Univers 15:19:25 23:59:00 Encounter Michael LAI 350.1.13.10 [facility] 4.2.7.2.686 [facility] [id number] [facility] 804 Branch 2022-08-16 2022-08-16 Outpatient PETEY SPAULDING [facility] [id number] Univers 00:00:00 00:00:00 PETEY MORALES [facility] 2022-08-14 2022-08-14 Outpatient R [facility] [id number] Univers 13:30:00 13:30:00 jeffrey [facility] 2022-08-14 2022-08-14 Lalo Mccann [facility] [id number] Univers 00:00:00 00:00:00 Vern HEALTH [id number] it y of [facility] [id number] Junior as MAE?BLEA [id number] [place] tonio ISABEL [address] [place] MEDICAL OFFICE [facility] 2022-08-13 2022-08-13 Office Kathy [facility] [id number] Univers 14:10:00 14:27:05 Visit Michael BERGER 350.1.13.10 ity of [facility] [place]2.7.2.686 [place] [id number] [place] ton[place] NICOLE [address] [place] [address] 2022-08-13 2022-08-13 Outpatient R KATHY [facility] [id number] Univers 14:10:00 14:27:05 MICHAEL murphy [facility] 2022-08-13 2022-08-13 Orders Doctor APOLINAR [id number] Univers 00:00:00 00:00:00 Only Unassigned, ORLY 350.1.13.10 ity of [place] [facility] 4.2.7.2.686 Junior as [phone] [address] 2022-08-06 2022-08-06 Patient Siobhan [facility] [id number] Univers 00:00:00 00:00:00 Secure Msg Vern HEALTH [id number] ity of [place] 4.2.7.2.686 Junior as MAE?BLEA [id number] [place] tonio ISABEL [address] [place] [address] OFFICE [facility] 2022-08-06 2022-08-06 Telephone Siobhan [facility] [id number] Univers 00:00:00 00:00:00 Vern HEALTH 350.1.13.10 it y of [place] 4.2.7.2.686 Junior as MAE?BLEA [id number] [place] tonio ISABEL [address] [place] [address] OFFICE [facility] 2022-08-05 2022-08-05 Valve Lapper Lab, Ang - Db [facility] [id number] Univers 14:00:00 14:15:00 Visit Petey Morales HEALTH 350.1.13. 10 ity of [facility] 4.2.7.2.686 Junior as MAE?BLEA [id number] Me dicjose guadalupe ISABEL [address] [place] MEDICAL OFFICE BUILDING 2022-08-05 2022-08-05 Outpatient R PETEY MORALES [facility] [id number] Univers 13:00:00 13:57:23 PETEY MORALES mio [facility] 2022-08-05 2022-08-05 Office [facility] [id number] Univers 13:00:00 13:57:23 Visit Petey [facility] 350.1.13.10 ity of [place] 4.2.7.2.686 Junior as MAE?BLEA [id number] [place] tonio ISABEL 0[address] [facility] OFFICE [facility] 2022-07-17 2022-07-17 Outpatient R SIOBHAN [facility] [id number] Univers 14:00:00 15:05:13 VERN mio [facility] 2022-07-17 2022-07-17 [facility] [id number] Univers 14:00:00 15:05:13 Visit Vern [employer] 350.1.13.10 it y of [place] 4.2.7.2.686 Junior as MAE?BLEA [phone] [place] tonio ISABEL [address] [place] MEDICAL OFFICE [facility] 2022-07-17 2022-07-17 Letter [facility] [id number] Univers 00:00:00 00:00:00 (Out) Vern HEALTH 350.1.13.10 it y of [place] 4.2.7.2.686 Junior as MAE?BLEA [phone] [place] dicjose guadalupe ISABEL [address] [place] MEDICAL OFFICE BUILDING 2022-07-16 2022-07-16 Telephone [facility] [id number] Univers 00:00:00 00:00:00 Vern HEALTH 350.1.13.10 it y of [place] 4.2.7.2.686 Junior as MAE?BLEA [phone] [place] dicjose guadalupe ISABEL [address] [place] MEDICAL OFFICE [facility] 2022-07-15 2022-07-15 Office [facility] 1.2.840.114 [id number] Univers 13:00:00 13:45:34 Visit Vern HEALTH 350.1.13.10 it y of [place] 4.2.7.2.686 Junior as MAE?BLEA [phone] [address] MEDICAL OFFICE BUILDING 2022-07-15 2022-07-15 Outpatient R [facility] [id number] Univers 13:00:00 13:45:34 VERN ity [facility] 2022-07-15 2022-07-15 Letter Siob[facility] 1.2.840.114 [id number] Univers 00:00:00 00:00:00 (Out) Vern HEALTH 350.1.13.10 it y of [place] 4.2.7.2.686 Junior as MAE?BLEA [phone] [address] MEDICAL OFFICE [facility] 2020-08-29 2020-08-29 [facility] [id number] Univers 15:02:55 23:59:00 Encounter Mey SPECIALTY 350.1.13.10 [place] [phone] [place] tonio NICOLE 809 [facility] 2020-08-29 2020-08-29 Office [facility] 1.2.840.114 [id number] Univers 14:32:29 16:45:19 Visit Mey SPECIALTY 350.1.13.10 [place] [phone] [place] ton[place] NICOLE 198 [facility] 2020-08-29 2020-08-29 Office [facility] 1.2.840.114 [id number] 14:32:29 16:45:19 Visit Mey SPECIALTY 350.1.13.10 CARE 4.2.7.2.686 CENTER AT [phone] COREY [address] [place] [address] 2020-08-29 2020-08-29 Outpatient R CY [facility] [id number] Univers 14:40:00 14:40:00 MEY ity of [facility] 2020-08-29 2020-08-29 Orders Doctor JIANG 1.2.840.114 [id number] Univers 00:00:00 00:00:00 Only Unassigned, ORLY 350.1.13.10 ity of [facility] 4.2.7.2.686 Junior as [phone] [address] 2019-04-07 2019-04-07 Office FATUMA Baxter 1.2.840.114 [id number] Univers 15:25:37 17:21:24 Visit Brook Lai 350.1.13.10 ity of [place].2.[place] [phone] [place] dic[address] 2019-04-07 2019-04-07 Orders Doctor APOLINAR 1.2.840.114 [id number] Univers 00:00:00 00:00:00 Only Unassigned, ORLY 350.1.13.10 ity of [facility] 4.2.7.2.686 Junior as [phone] [address] Results Test Description Test Time Test Comments Results Result Comments Source GC & CHLAMYDIA AMPLIFIED ASSAY 2019-04-08 17:10:00 Test Item Value Reference Range Interpretation Comme nts Lab Interpretation (test code = 50686-0) [facility] AMPLIF[facility] [id number] 17:10:00 Test Item Value Reference Range Interpretation Comments Lab Interpretation (test code = Normal 87503-7) [facility]
--- NOTE | 2023-02-19 20:07 | ER ---
Nurse's Notes [facility] Name: Rocío Little Age: 23 yrs Sex: Male : 2000 Arrival Date: 02/19/2023 Time: 19:35 Bed 18 Private MD: VERN LEHMAN Diagnosis: Acute suppurative otitis media with spontaneous rupture of ear drum, left ear Presentation: 02/19 19:56 Chief complaint: Patient states: "I got my left ear flushed at [facility] due to wax build mb9 up. Now my ear hurts really bad, can barley hear out of it, and feels like there is a cotton ball stuck. I'm prone to ear infections". Coronavirus screen: Vaccine status: Patient reports receiving the 2nd dose of the covid vaccine. Ebola Screen: No symptoms or risks identified at this time. Initial Sepsis Screen: Does the patient meet any 2 criteria? No. Patient's initial sepsis screen is negative. Does the patient have a suspected source of infection? No. Patient's initial sepsis screen is negative. Risk Assessment: Do you want to hurt yourself or someone else? Patient reports no desire to harm self or others. Onset of symptoms was February 19, 2023. 19:56 Method Of Arrival: Ambulatory mb9 19:56 Acuity: LIZBETH 4 mb9 Triage Assessment: 19:58 General: Appears in no apparent distress. Behavior is cooperative. Pain: Complains of mb9 pain in left ear Pain does not radiate. Pain currently is 5 out of 10 on a pain scale. Quality of pain is described as throbbing. EENT: Ear canal w/ drainage noted from left ear. Neuro: Level of Consciousness is awake, alert, obeys commands, Oriented to person, place, time, situation, Appropriate for age. Cardiovascular: Patient's skin is warm and dry. Respiratory: Airway is patent. Derm: Skin is pink, warm \\T\\ dry. Musculoskeletal: Range of motion: intact in all extremities. Historical: - Allergies: 19:57 NKDA; mb9 - Home Meds: 19:57 None [Active]; mb9 - PMHx: 19:57 Asthma; "slipped disc"; mb9 - PSHx: 19:57 Hernia repair as an ; mb9 - Immunization history:: Adult Immunizations up to date. - Social history:: Smoking status: Reported history of juuling and/or vaping. Screenin:59 [facility] ED Fall Risk Assessment (Adult) History of falling in the last 3 months, mb9 including since admission No falls in past 3 months (0 pts) Confusion or Disorientation No (0 pts) Intoxicated or Sedated No (0 pts) Impaired Gait No (0 pts) Mobility Assist Device Used No (0 pt) Altered Elimination No (0 pt) Score/Fall Risk Level 0 - 2 = Low Risk Oriented to surroundings, Maintained a safe environment, Educated pt \\T\\ family on fall prevention, incl call for assistance when getting out of bed. Abuse screen: Denies threats or abuse. Nutritional screening: No deficits noted. Tuberculosis screening: No symptoms or risk factors identified. Assessment: 20:15 General: Appears comfortable, Behavior is calm, cooperative. Pain: Complains of pain in rv left ear. Neuro: Level of Consciousness is awake, alert, obeys commands, Oriented to person, place, time, situation. Respiratory: Airway is patent Respiratory effort is even, unlabored. EENT: Ear canal w/ drainage noted from left ear. Vital Signs: 19:56 BP 123 / 88; Pulse 89; Resp 18; Temp 98.3; Pulse Ox 100% on R/A; Weight 102.06 kg; mb9 Height 5 ft. 9 in. ; Pain 5/10; 19:56 Body Mass Index 33.23 (102.06 kg, 175.26 cm) mb9 19:56 Pain Scale: Adult mb9 ED Course: 19:40 Patient arrived in ED. es 19:53 Sdiney Neal PA is PHCP. cp 19:53 Haider Munoz MD is Attending Physician. cp 19:54 Ab Donaldson, CRISSY is Primary Nurse. rv 19:57 Triage completed. mb9 19:57 Arm band placed on. mb9 19:59 Bed in low position. Call light in reach. Side rails up X 1. Client placed on mb9 continuous cardiac and pulse oximetry monitoring. NIBP monitoring applied. 19:59 No provider procedures requiring assistance completed. mb9 20:06 Raissa Robertson MD is Referral Physician. cp 20:15 VERN LEHMAN is Private Physician. es 20:16 Patient did not have IV access during this emergency room visit. rv Administered Medications: 20:16 Drug: Ibuprofen PO 800 mg Route: PO; rv 20:16 Follow up: Response: Medication administered at discharge. rv 20:16 Drug: Amoxicillin-Clavulanate PO 875 mg Route: PO; rv 20:16 Follow up: Response: Medication administered at discharge. rv Medication: 19:59 VIS not applicable for this client. mb9 Outcome: 20:06 Discharge ordered by . cp 20:16 Discharged to home ambulatory. rv 20:16 Condition: good 20:16 Discharge instructions given to patient, Instructed on discharge instructions, follow up and referral plans. medication usage, Demonstrated understanding of instructions, follow-up care, medications, Prescriptions given X 3. 20:16 Patient left the ED. rv Signatures: Livia Carter Corey, PA PA cp Ab Donaldson, CRISSY RN rv Aixa Navarrete RN RN mb9 Corrections: (The following items were deleted from the chart) 19:58 19:57 Home Meds: Unable to obtain; mb9 mb9
--- NOTE | 2023-02-19 20:07 | EDPHYS ---
Physician Documentation [facility] Name: Rocío Little Age: 23 yrs Sex: Male : 2000 Arrival Date: 02/19/2023 Time: 19:35 Bed 18 Private MD: VERN LEHMAN ED Physician Haider Munoz HPI: 02/19 20:00 This 23 yrs old Male presents to ER via Ambulatory with complaints of Ear cp Pain, Drainage From Ear. 20:00 The patient presents with drainage, that is purulent, hearing loss, partial, pain, that cp is acute. The complaints affect the left ear. Onset: The symptoms/episode began/occurred today. Associated signs and symptoms: Pertinent negatives: cough, fever, rhinorrhea, sinus trouble, sore throat, vomiting. Patient reports pain started today while having left ear irrigated at [facility]. History of ear infections. Historical: - Allergies: 19:57 NKDA; mb9 - Home Meds: 19:57 None [Active]; mb9 - PMHx: 19:57 Asthma; "slipped disc"; mb9 - PSHx: 19:57 Hernia repair as an infant; mb9 - Immunization history:: Adult Immunizations up to date. - Social history:: Smoking status: Reported history of juuling and/or vaping. ROS: 20:02 Constitutional: Negative for body aches, chills, fever, poor PO intake. cp 20:02 Eyes: Negative for injury, pain, redness, and discharge. cp 20:02 ENT: Positive for drainage from ear(s), ear pain, hearing loss, Negative for rhinorrhea, sinus congestion, sore throat, difficulty swallowing, difficulty handling secretions. 20:02 Respiratory: Negative for cough, wheezing. 20:02 Abdomen/GI: Negative for abdominal pain, nausea, vomiting, and diarrhea. 20:02 Skin: Negative for rash. 20:02 All other systems are negative. Exam: 20:04 Head/Face: Normocephalic, atraumatic. cp 20:04 Constitutional: The patient appears in no acute distress, alert, awake, non-toxic, well developed, well nourished. 20:04 Eyes: Periorbital structures: appear normal, Conjunctiva: normal, no exudate, no cp injection, Lids and lashes: appear normal, bilaterally. 20:04 ENT: External ear(s): pain with movement, that is mild, of the left ear canal, Ear canal(s): bleeding, that is minimal, in the left canal, erythema, of the left canal, swelling, of the left canal, TM's: rupture, on the left, with bloody discharge, Examination of the other ear shows no obvious abnormality, Nose: is normal, Mouth: Lips: moist, Oral mucosa: pink and intact, moist, Posterior pharynx: is normal, airway is patent, no erythema, no exudate. 20:04 Neck: ROM/movement: is normal, is supple, without pain, no range of motions limitations, Lymph nodes: no appreciated lymphadenopathy. 20:04 Chest/axilla: Inspection: normal. 20:04 Cardiovascular: Rate: normal, Rhythm: regular. 20:04 Respiratory: the patient does not display signs of respiratory distress, Respirations: normal, no use of accessory muscles, no retractions, labored breathing, is not present. 20:04 Skin: no rash present. Vital Signs: 19:56 BP 123 / 88; Pulse 89; Resp 18; Temp 98.3; Pulse Ox 100% on R/A; Weight 102.06 kg; mb9 Height 5 ft. 9 in. ; Pain 5/10; 19:56 Body Mass Index 33.23 (102.06 kg, 175.26 cm) mb9 19:56 Pain Scale: Adult mb9 MDM: 19:55 Patient medically screened. cp 20:06 Data reviewed: vital signs, nurses notes, and as a result, I will discharge patient. cp 20:06 Differential diagnosis: otitis media, otitis externa, ruptured TM, foreign body, cp cerumen impaction, barotrauma . Counseling: I had a detailed discussion with the patient and/or guardian regarding: the historical points, exam findings, and any diagnostic results supporting the discharge/admit diagnosis, the need for outpatient follow up, an ENT specialist. Administered Medications: 20:16 Drug: Ibuprofen PO 800 mg Route: PO; rv 20:16 Follow up: Response: Medication administered at discharge. rv 20:16 Drug: Amoxicillin-Clavulanate PO 875 mg Route: PO; rv 20:16 Follow up: Response: Medication administered at discharge. rv Disposition Summary: 02/19/23 20:06 Discharge Ordered Location: Home cp Problem: new cp Symptoms: have improved cp Condition: Stable cp Diagnosis - Acute suppurative otitis media with spontaneous rupture of ear drum, left ear cp Followup: cp - With: Raissa Robertson MD - When: 5 - 6 days - Reason: Recheck today's complaints Discharge Instructions: - Discharge Summary Sheet cp - Otitis Media, Adult cp - Ear Drops, Adult, [id number]-st-[id number] cp Forms: - Medication Reconciliation Form cp - Thank You Letter cp - Antibiotic Education cp - Prescription Opioid Use cp Prescriptions: - Augmentin 875-125 mg Oral Tablet - take 1 tablet by ORAL route every 12 hours for 10 days; 20 tablet; Refills: 0, cp Product Selection Permitted - Ibuprofen 800 mg Oral Tablet - take 1 tablet by ORAL route every 8 hours As needed take with food; 30 tablet; cp Refills: 0, Product Selection Permitted - Ciprodex 0.3-0.1 % Otic drops,suspension - instill 4 drops by OTIC route every 12 hours for 7 days , for ears ONLY; 1 cp unit; Refills: 0, Product Selection Permitted Signatures: Sidney Neal PA PA cp Ab Donaldson RN RN rv Aixa Navarrete RN RN mb9 Corrections: (The following items were deleted from the chart) 19:58 19:57 Home Meds: Unable to obtain; mb9 mb9
[2023-02-19] MEDS ORDERED: IBUPROFEN 400 MG TAB ONE (20:20)
[2023-02-19] MEDS ORDERED: AMOX/K CLAV 875 MG TAB ONE (20:20)
[2023-02-19 20:21] VITALS: BP 123/88; TEMP 98.3; O2SAT 100
== END 2023-02-19 20:16 | disposition home or self-care (01) ==
LOC: ER 19:35
DX: H66.012 Acute suppurative otitis media with spontaneous rupture of ear drum, left ear (principal)
CPT/HCPCS: 99283